=== PATIENT | female | born 1975 | race American Indian/Alaskan Native ===

== ENCOUNTER 2020-04-01 15:12 | Outpatient (REF) | payer MEDICAID, SELFPAY ==
[2020-04-01 17:33] LABS: MANUAL DIFF FLAG NO
[2020-04-01 17:44] LABS: Basophils Percent Auto 0.6 % (0-2); Eosinophils Absolute Auto 0.1 X10*3/uL (0.0-0.4); Eosinophils Percent Auto 1.9 % (0-4); Hematocrit 40.2 % (37-47); Hemoglobin 12.7 g/dl (12.0-16.0); Imm Gran Abs Auto 0.01 X10*3/uL (0.00-0.03); Imm Gran Pct Auto 0.1 % (0.0-0.4); Lymphocytes Absolute Auto 2.7 X10*3/uL (1.2-4.9); Lymphocytes Percent Auto 40.7 % (20-40); Mean Corpuscular HGB Conc 31.6 g/dl (31.0-35.0); Mean Corpuscular Volume 85.4 fL (80-98); Mean Platelet Volume 11.4 fL (9.4-12.3); Monocytes Absolute Auto 0.4 X10*3/uL (0.1-1.2); Monocytes Percent Auto 5.5 % (2-11); Neutrophils Absolute Auto 3.4 X10*3/uL (2.0-8.3); Neutrophils Percent Auto 51.2 % (45-73); Platelet Count 253 X10*3/uL (160-400); Red Blood Count 4.71 X10*6/uL (4.20-5.50); Red Cell Distribution Width 14.4 % (11.0-16.0); White Blood Count 6.7 X10*3/uL (4.8-10.8)
[2020-04-01 17:49] LABS: D Dimer 374 NG/ML
[2020-04-01 18:03] LABS: Anion Gap 11 (12-20); Blood Urea Nitrogen 10 mg/dL (9-16); Calcium 8.9 mg/dL (8.4-10.2); Carbon Dioxide 24 mmol/L (22-29); Chloride 106 mmol/L (96-108); Estimated Glomerular Filt Rate > 60; Glucose Random 121 mg/dL (60-115); Potassium 4.1 mmol/l (3.3-5.1); Sodium 137 mmol/L (135-145)
[2020-04-01 18:56] LABS: Erythrocyte Sedimentation Rate 20 MM/HR (0-20)
[2020-04-04 14:22] LABS: Anti Nuclear Antibody Screen NEGATIVE (NEGATIVE)
[2020-04-04 15:57] LABS: Cyclic Citrullinated Peptide <16 UNITS
[2020-04-06 13:32] LABS: Immunoglobulin G Subclass 1 1659 mg/dL (382-929); Immunoglobulin G Subclass 2 382 mg/dL (241-700); Immunoglobulin G Subclass 3 168 mg/dL (22-178); Immunoglobulin G Subclass 4 36.3 mg/dL (4-86); Immunoglobulin G Total 2393 mg/dL (600-1640)
== END 2020-04-01 15:13 | disposition home or self-care (01) ==
LOC: HO.LAB 15:12
PROVIDERS: PCP Internal Medicine; Referring Provider Internal Medicine; Visit Provider Hospitalist
DX: R06.00 Dyspnea, unspecified (principal); J45.909 Unspecified asthma, uncomplicated
CPT/HCPCS: 36415; 80048; 82784; 82785; 85025; 85379; 85652; 86003; 86038; 86039; 86200; 99202

== ENCOUNTER → 2020-04-02 10:08 | Outpatient (BNVA) | payer MEDICAID, SELFPAY | PROVIDERS: Visit Provider Surgery | DX: Z91.89 Other specified personal risk factors, not elsewhere classified (principal); Z80.49 Family history of malignant neoplasm of other genital organs; Z80.3 Family history of malignant neoplasm of breast; Z80.0 Family history of malignant neoplasm of digestive organs | CPT/HCPCS: 99212 ==

== ENCOUNTER → 2020-05-27 09:58 | Outpatient (BNVA) | payer MEDICAID, SELFPAY | PROVIDERS: Visit Provider Hospitalist | DX: R06.00 Dyspnea, unspecified (principal); G47.33 Obstructive sleep apnea (adult) (pediatric); J45.909 Unspecified asthma, uncomplicated; Z79.899 Other long term (current) drug therapy | CPT/HCPCS: 99212 ==

== ENCOUNTER 2020-06-28 16:38 | Emergency (ER) | payer MEDICAID, SELFPAY ==
--- NOTE | ~2020-06-28 | XR_ITS ---
EXAMINATION: LEFT HIP SERIES LEFT SHOULDER SERIES CLINICAL INFORMATION: Fall COMPARISON: CT scan of the abdomen and pelvis December 2017. TECHNIQUE: Pelvis single view and 2 views of the left hip Left shoulder 3 views FINDINGS: Left hip: Femoral acetabular joint is normal. Surrounding bone and soft tissues normal. Pelvis: Bones joints and soft tissues normal. Left shoulder:Small ossification tuberosity. Bones joints and soft tissues otherwise unremarkable. XR/XR shoulder LT min 2V IMPRESSION: Left hip and pelvis: Normal. Left shoulder: No acute abnormality. Possible calcification overlying the greater tuberosity may reflect calcific tendinitis as is seen in the right shoulder on the prior examination in 2016
--- NOTE | ~2020-06-28 | XR_ITS ---
EXAMINATION: LEFT HIP SERIES LEFT SHOULDER SERIES CLINICAL INFORMATION: Fall COMPARISON: CT scan of the abdomen and pelvis December 2017. TECHNIQUE: Pelvis single view and 2 views of the left hip Left shoulder 3 views FINDINGS: Left hip: Femoral acetabular joint is normal. Surrounding bone and soft tissues normal. Pelvis: Bones joints and soft tissues normal. Left shoulder:Small ossification tuberosity. Bones joints and soft tissues otherwise unremarkable. XR/XR hip LT min 2V IMPRESSION: Left hip and pelvis: Normal. Left shoulder: No acute abnormality. Possible calcification overlying the greater tuberosity may reflect calcific tendinitis as is seen in the right shoulder on the prior examination in 2016
[2020-06-28 17:33] VITALS: BP 126/69; PULSE 69; RESP 18; TEMP 36.8; O2SAT 98; BMI 59.1
== END 2020-06-28 20:05 | disposition left against medical advice (07) ==
PROVIDERS: Emergency Provider Emergency Medicine
DX: S79.912A Unspecified injury of left hip, initial encounter (principal); S49.92XA Unspecified injury of left shoulder and upper arm, initial encounter; W19.XXXA Unspecified fall, initial encounter; Y93.9 Activity, unspecified; Y92.9 Unspecified place or not applicable; Y99.9 Unspecified external cause status
CPT/HCPCS: 73030; 73502; 99282; 99283

== ENCOUNTER 2020-07-31 10:28 | Outpatient (REF) | payer MEDICAID, SELFPAY ==
--- NOTE | ~2020-07-31 | XR_ITS ---
EXAMINATION: XR RIBS, RIGHT CLINICAL INFORMATION: Chest pain COMPARISON: Chest x-ray of February 13, 2020 TECHNIQUE: PA film of the chest and 4 views of the right ribs. FINDINGS: Lungs are clear. No consolidation, pneumothorax, or pleural effusion. The cardiomediastinal silhouette and pulmonary vasculature are normal. Osseous structures are unremarkable. Ribs are intact. No fractures are identified. Multilevel degenerative disc disease with marginal spurring is seen within the thoracic spine. XR/XR ribs RT min 3V w CXR1V IMPRESSION: No acute parenchymal disease within the chest. No suspicious bony abnormality or acute fracture of the right ribs.
== END 2020-07-31 10:29 | disposition home or self-care (01) ==
LOC: HO.XRAY 10:28
PROVIDERS: Visit Provider Hospitalist
DX: G47.33 Obstructive sleep apnea (adult) (pediatric) (principal); R93.89 Abnormal findings on diagnostic imaging of other specified body structures; R06.00 Dyspnea, unspecified; J45.40 Moderate persistent asthma, uncomplicated; K21.9 Gastro-esophageal reflux disease without esophagitis; R07.82 Intercostal pain
CPT/HCPCS: 71101; 99212

== ENCOUNTER 2020-08-06 11:47 | Outpatient (REF) | payer MEDICAID, SELFPAY ==
--- NOTE | ~2020-08-06 | US_ITS ---
EXAMINATION: US ABDOMEN COMPLETE CLINICAL INFORMATION: Abdominal pain. COMPARISON: CT abdomen and pelvis 08/02/2019. Ultrasound abdomen 07/12/2019 and ultrasound renals only 10/13/2018. X-ray abdomen 10/13/2018. TECHNIQUE: Real-time imaging of the abdominal viscera. FINDINGS: PANCREAS: The head and the body of pancreas homogeneous in echotexture. The tail is obscured by overlying gas. ABDOMINAL AORTA: The proximal, mid, and distal segments are normal in caliber. INFERIOR VENA CAVA: Visualized portions are normal. LIVER: There is diffuse hepatic echogenicity without any focal lesion. The liver is normal in size. The liver contour is normal. No focal hepatic lesion. There is no intrahepatic biliary duct dilatation seen. GALLBLADDER: Surgically absent. COMMON BILE DUCT: Normal in caliber measuring 0.5 cm in diameter. RIGHT KIDNEY: Normal. No hydronephrosis. No renal calculi or focal parenchymal lesions. The kidney measures 12.6 cm in maximum dimension. LEFT KIDNEY: Normal. No hydronephrosis. No renal calculi or focal parenchymal lesions. The kidney measures 13.4 cm in maximum dimension. SPLEEN: Normal. The spleen measures 12.2 cm in maximum dimension. FREE FLUID: None. US/US abdomen complete IMPRESSION: Hepatic steatosis. No focal lesion seen. Rest of the abdominal ultrasound is unremarkable.
== END 2020-08-06 11:48 | disposition home or self-care (01) ==
LOC: HO.US 11:47
PROVIDERS: Visit Provider Registered Nurse
DX: R10.9 Unspecified abdominal pain (principal); M54.9 Dorsalgia, unspecified
CPT/HCPCS: 76700

== ENCOUNTER → 2020-08-15 09:44 | Outpatient (BNVA) | payer MEDICAID, SELFPAY | PROVIDERS: PCP Nurse Practitioner Family; Visit Provider Nurse Practitioner ==

== ENCOUNTER → 2020-10-04 09:06 | Outpatient (BNVA) | payer MEDICAID, SELFPAY | PROVIDERS: PCP Nurse Practitioner Family; Visit Provider Nurse Practitioner ==

== ENCOUNTER 2020-10-07 11:42 | Outpatient (REF) | payer MEDICAID, SELFPAY ==
--- NOTE | ~2020-10-07 | XR_ITS ---
EXAMINATION: KNEE THORACIC SPINE AND LUMBAR SPINE X-RAY CLINICAL INFORMATION: Pain COMPARISON: Previous right knee x-ray December 2018, previous lumbar spine x-ray June 2014 TECHNIQUE: 4 views of the right knee, 5 views of the lumbar spine and 3 views of the thoracic spine FINDINGS: Right knee: Bone alignment is normal. No fracture or dislocation is seen. There is mild medial and lateral tibial joint space narrowing and small osteophytes. Joint spaces are otherwise normal. There is an osteophyte at the quadriceps tendon insertion to the patella. There is no joint effusion. Lumbar spine: Bone alignment is normal. No fracture or dislocation is seen. Disc spaces are normal. There is mild lower lumbar spine facet arthritis. No pars defect is seen. Thoracic spine: Bone alignment is normal. No fracture or dislocation is seen. There is mild degenerative spondylosis of the mid thoracic spine. Disc spaces are normal. Paraspinal soft tissues are normal. XR/XR lumbar spine 4V min IMPRESSION: Right knee: Mild degenerative changes at the medial femoral tibial joint. Lumbar spine: Mild lower lumbar spine facet arthritis. Thoracic spine: Mild spondylosis of the midthoracic spine.
--- NOTE | ~2020-10-07 | XR_ITS ---
EXAMINATION: KNEE THORACIC SPINE AND LUMBAR SPINE X-RAY CLINICAL INFORMATION: Pain COMPARISON: Previous right knee x-ray December 2018, previous lumbar spine x-ray June 2014 TECHNIQUE: 4 views of the right knee, 5 views of the lumbar spine and 3 views of the thoracic spine FINDINGS: Right knee: Bone alignment is normal. No fracture or dislocation is seen. There is mild medial and lateral tibial joint space narrowing and small osteophytes. Joint spaces are otherwise normal. There is an osteophyte at the quadriceps tendon insertion to the patella. There is no joint effusion. Lumbar spine: Bone alignment is normal. No fracture or dislocation is seen. Disc spaces are normal. There is mild lower lumbar spine facet arthritis. No pars defect is seen. Thoracic spine: Bone alignment is normal. No fracture or dislocation is seen. There is mild degenerative spondylosis of the mid thoracic spine. Disc spaces are normal. Paraspinal soft tissues are normal. XR/XR knee RT 4V IMPRESSION: Right knee: Mild degenerative changes at the medial femoral tibial joint. Lumbar spine: Mild lower lumbar spine facet arthritis. Thoracic spine: Mild spondylosis of the midthoracic spine.
--- NOTE | ~2020-10-07 | XR_ITS ---
EXAMINATION: XR CHEST CLINICAL INFORMATION: Cough COMPARISON: Previous chest x-ray most recent July 2020 TECHNIQUE: 2 views of the chest were obtained. FINDINGS: The cardiac and mediastinal contours are stable. The lungs are clear. There is no pleural effusion or pneumothorax. There are degenerative changes of the spine. XR/XR chest 2V IMPRESSION: No evidence for acute disease in the chest.
--- NOTE | ~2020-10-07 | XR_ITS ---
EXAMINATION: XR CERVICAL SPINE CLINICAL INFORMATION: Pain. COMPARISON: Thoracic spine 10/07/2020, cervical spine 06/30/2016. TECHNIQUE: 3 views of the cervical spine were obtained. FINDINGS: There is mild reversal cervical lordosis similar to prior exam 2017. There is mild rightward tilting cervical spine on frontal view. The vertebral bodies are normal in height. The odontoid appears intact. There is no vertebral compression, spondylolisthesis, disc narrowing, or destructive process. No prevertebral soft tissue swelling. Bony mineralization appears normal. XR/XR cervical spine 3V IMPRESSION: Mild reversal and rightward tilting. Otherwise unremarkable.
--- NOTE | ~2020-10-07 | XR_ITS ---
EXAMINATION: KNEE THORACIC SPINE AND LUMBAR SPINE X-RAY CLINICAL INFORMATION: Pain COMPARISON: Previous right knee x-ray December 2018, previous lumbar spine x-ray June 2014 TECHNIQUE: 4 views of the right knee, 5 views of the lumbar spine and 3 views of the thoracic spine FINDINGS: Right knee: Bone alignment is normal. No fracture or dislocation is seen. There is mild medial and lateral tibial joint space narrowing and small osteophytes. Joint spaces are otherwise normal. There is an osteophyte at the quadriceps tendon insertion to the patella. There is no joint effusion. Lumbar spine: Bone alignment is normal. No fracture or dislocation is seen. Disc spaces are normal. There is mild lower lumbar spine facet arthritis. No pars defect is seen. Thoracic spine: Bone alignment is normal. No fracture or dislocation is seen. There is mild degenerative spondylosis of the mid thoracic spine. Disc spaces are normal. Paraspinal soft tissues are normal. XR/XR thoracic spine 3V IMPRESSION: Right knee: Mild degenerative changes at the medial femoral tibial joint. Lumbar spine: Mild lower lumbar spine facet arthritis. Thoracic spine: Mild spondylosis of the midthoracic spine.
[2020-10-07 12:57] LABS: Basophils Percent Auto 0.4 % (0-2); Eosinophils Absolute Auto 0.1 X10*3/uL (0.0-0.4); Eosinophils Percent Auto 1.7 % (0-4); Hematocrit 39.1 % (37-47); Hemoglobin 12.4 g/dl (12.0-16.0); Imm Gran Abs Auto 0.01 X10*3/uL (0.00-0.03); Imm Gran Pct Auto 0.1 % (0.0-0.4); Lymphocytes Absolute Auto 2.4 X10*3/uL (1.2-4.9); Lymphocytes Percent Auto 34.9 % (20-40); MANUAL DIFF FLAG NO; Mean Corpuscular HGB Conc 31.7 g/dl (31.0-35.0); Mean Corpuscular Hemoglobin 26.9 pg (27.0-33.0); Mean Corpuscular Volume 84.8 fL (80-98); Mean Platelet Volume 10.8 fL (9.4-12.3); Monocytes Absolute Auto 0.4 X10*3/uL (0.1-1.2); Monocytes Percent Auto 5.5 % (2-11); Neutrophils Percent Auto 57.4 % (45-73); Platelet Count 228 X10*3/uL (160-400); Red Blood Count 4.61 X10*6/uL (4.20-5.50); Red Cell Distribution Width 13.1 % (11.0-16.0)
[2020-10-07 13:23] LABS: Cholesterol 221 mg/dL; Estimated Average Glucose 246 mg/dL; HDL Cholesterol 35 mg/dL; Hemoglobin A1c % 10.2 %; LDL Cholesterol Calculated 135 mg/dl; Triglycerides 256 mg/dL
[2020-10-07 13:26] LABS: Alanine Aminotransferase 100 U/L (0-31); Albumin Level 4.3 g/dL (3.5-5.0); Alkaline Phosphatase 118 U/L (39-117); Anion Gap 14 (12-20); Aspartate Amino Transferase 84 U/L (5-31); Bilirubin Total 0.4 mg/dL (0.0-1.0); Blood Urea Nitrogen 13 mg/dL (9-16); Calcium 9.4 mg/dL (8.4-10.2); Carbon Dioxide 25 mmol/L (22-29); Chloride 104 mmol/L (96-108); Estimated Glomerular Filt Rate > 60; Glucose Random 222 mg/dL (60-115); Potassium 4.1 mmol/L (3.3-5.1); Sodium 139 mmol/L (135-145); Total Protein 8.3 g/dL (6.5-8.0)
[2020-10-07 13:45] LABS: TSH reflex Free T4 1.25 uIU/mL (0.32-4.0); Vitamin D 25-OH Total 24.9 ng/mL (>30)
== END 2020-10-07 11:43 | disposition home or self-care (01) ==
LOC: HO.LAB 11:42
PROVIDERS: Nurse Practitioner; PCP Nurse Practitioner Family; Visit Provider Nurse Practitioner Family
DX: R11.0 Nausea (principal); E11.9 Type 2 diabetes mellitus without complications; J45.20 Mild intermittent asthma, uncomplicated; K21.9 Gastro-esophageal reflux disease without esophagitis; K59.00 Constipation, unspecified; M54.9 Dorsalgia, unspecified; R10.9 Unspecified abdominal pain; R05 Cough; M25.561 Pain in right knee; Z91.81 History of falling; Z71.89 Other specified counseling; Z12.11 Encounter for screening for malignant neoplasm of colon
CPT/HCPCS: 36415; 71046; 72040; 72072; 72110; 73564; 80053; 80061; 82306; 83036; 84443; 85025

== ENCOUNTER → 2020-12-09 08:55 | Outpatient (BNVA) | payer MEDICAID, SELFPAY | PROVIDERS: PCP Nurse Practitioner Family; Visit Provider Nurse Practitioner | DX: K58.2 Mixed irritable bowel syndrome (principal); K21.9 Gastro-esophageal reflux disease without esophagitis; R11.0 Nausea; R10.32 Left lower quadrant pain; K62.5 Hemorrhage of anus and rectum; K22.10 Ulcer of esophagus without bleeding; K64.9 Unspecified hemorrhoids; G47.33 Obstructive sleep apnea (adult) (pediatric); Z80.0 Family history of malignant neoplasm of digestive organs; Z79.899 Other long term (current) drug therapy | CPT/HCPCS: 99212 ==

== ENCOUNTER 2020-12-16 09:12 | Outpatient (REF) | payer MEDICAID, SELFPAY ==
--- NOTE | ~2020-12-16 | CT_ITS ---
EXAMINATION: CT ABDOMEN AND PELVIS WITH CONTRAST CLINICAL INFORMATION: Left lower quadrant pain. COMPARISON: 08/02/2019 TECHNIQUE: Multidetector volumetric images were obtained from the superior aspect of the liver through the pubic symphysis following administration 85 mL of Omnipaque 350 intravenous contrast and 400 mL oral contrast. Sagittal and coronal reformatted images were obtained on the technologist's workstation. Oral contrast: No This CT examination was performed using dose optimization techniques as appropriate, variously including the following: *Automated exposure control *Adjustment of mA and/or kV according to patient size (this includes techniques or standardized protocols for targeted exams where dose is matched to indication/reason for exam; i.e. extremities or head) *Use of iterative reconstruction technique DLP: 1326 mGy-cm FINDINGS: LUNG BASES: The visualized lung bases are unremarkable. The heart size is normal. LIVER, GALLBLADDER, AND BILIARY TREE: The liver is enlarged in size, shape with diffuse hypoattenuation. Liver measures 23 cm in length. No focal hepatic lesion or biliary ductal dilatation is present. Gallbladder has been surgically removed. PANCREAS: Unremarkable. SPLEEN: Unremarkable. ADRENAL GLANDS: The adrenal glands are normal with a small 2-3 mm left adrenal gland calcification. KIDNEYS AND URETERS: The kidneys are normal in size, shape, and attenuation. No hydronephrosis, hydroureter, or calculi seen. No perinephric stranding. BLADDER: Unremarkable. GASTROINTESTINAL TRACT: There is moderate stool and oral contrast seen in the right colon. The rest of the colon is unremarkable. The small bowel loops are normal caliber. Appendix is likely normal caliber. No inflammatory changes seen in the right lower quadrant. ABDOMINAL WALL: No significant hernia is appreciated. LYMPH NODES: There are moderate-sized left external iliac lymph nodes with the largest lymph node measuring 2.4 x 1.6 x 2.8 cm axial image 74/3. Previously it measured 2.5 x 1.3 cm. Similar size abnormal-sized right internal iliac lymph node is noted measuring 2.6 x 1.7 x 3.0 cm. Previously measured 3.3 x 2.8 cm. In addition there are small shotty lymph nodes in the left retroperitoneum. VASCULAR: Unremarkable. PELVIC VISCERA: The uterus is atrophied or surgically absent. No adnexal mass or free fluid seen. OSSEOUS STRUCTURES: Unremarkable. CT/CT abdomen pelvis w con IMPRESSION: Abnormal bilateral internal iliac lymph node of unknown etiology. These lymph nodes are smaller compared to previous study 08/02/2019. Diffuse hepatic steatosis without focal lesion. Previous cholecystectomy changes are noted. No acute intra-abdominal process seen.
[2020-12-16 10:05] LABS: Blood Urea Nitrogen 10 mg/dL (9-16); Estimated Glomerular Filt Rate > 60
[2020-12-16] MEDS: iohexoL 350 MG/ML 100 ML INFUS..BTL IV (11:57)
[2020-12-16] MEDS: Barium Sulfate Oral (Vanilla) 450 ML ORAL.SUSP 900 ML PO (12:00)
== END 2020-12-16 09:13 | disposition home or self-care (01) ==
LOC: HO.CT 09:12
PROVIDERS: Visit Provider Nurse Practitioner
DX: R10.32 Left lower quadrant pain (principal); K62.5 Hemorrhage of anus and rectum
CPT/HCPCS: 36415; 74177; 82565; 84520; Q9967

== ENCOUNTER → 2021-01-14 08:45 | Outpatient (BNVA) | payer MEDICAID, SELFPAY | PROVIDERS: PCP Nurse Practitioner Family; Visit Provider Nurse Practitioner ==

== ENCOUNTER 2021-01-27 16:47 | Emergency (ER) | payer MEDICAID, SELFPAY ==
--- NOTE | ~2021-01-27 | CT_ITS ---
EXAMINATION: CT OF THE HEAD AND CERVICAL SPINE WITHOUT CONTRAST CLINICAL INFORMATION: fall . COMPARISON: 12/14/2019. TECHNIQUE: Contiguous axial imaging was performed from the skull base to vertex. Soft tissue and bony algorithms were evaluated. Coronal reformatted images were obtained on the technologist's workstation. Following this, multiple serial thin slice helical CT scan images through the cervical spine were obtained. Soft tissue and bony algorithms were evaluated. Coronal and sagittal reformatted images were obtained on the technologist workstation. This CT examination was performed using dose optimization techniques as appropriate, variously including the following: *Automated exposure control *Adjustment of mA and/or kV according to patient size (this includes techniques or standardized protocols for targeted exams where dose is matched to indication/reason for exam; i.e. extremities or head) *Use of iterative reconstruction technique DLP: 1755 mGy cm FINDINGS: Head CT: The ventricles are normal in size and symmetry. There is no evidence of acute intracranial hemorrhage or territorial infarction. No abnormal mass-effect or midline shift is seen. Norman to white matter differentiation is well preserved. No extra-axial fluid collections are identified. There is no abnormal attenuation within the brain parenchyma. The osseous structures and soft tissues are normal. The mastoid air cells and visualized portions of the paranasal sinuses are well-aerated. Cervical spine CT: No prevertebral soft tissue swelling is appreciated. The bones are in normal anatomic alignment with no acute fracture or spondylolisthesis. Vertebral body heights and disc heights are preserved. Posterior elements are unremarkable. Visualized airway and lung apices are unremarkable. Visualized thyroid gland unremarkable. CT/CT cervical spine wo con IMPRESSION: Head CT: No acute intracranial pathology. C-spine: No acute bony abnormality in the cervical spine.
--- NOTE | ~2021-01-27 | XR_ITS ---
Examination: XR ribs RT min 3V w CXR1V, XR shoulder RT min 2V Indication: fall Comparison: No pertinent prior studies are currently available for comparison. Technique: Frontal view of the chest with 3 additional views the right ribs and 4 additional views of the right shoulder obtained. Findings: Right ribs: Bones are normal anatomic alignment. I do not appreciate any acute fracture or dislocation. Specifically no displaced rib fracture seen visualized right lung is unremarkable although patient is hypoexpanded. Surgical clips in the right upper quadrant likely from prior cholecystectomy. Right shoulder: Humeral head is well-seated within the glenoid fossa. Mild degenerative osteophytes are seen. Mild hypertrophic degenerative changes in the acromioclavicular joint. XR/XR shoulder RT min 2V Impression: No displaced rib fracture. Mild degenerative changes in the shoulder.
--- NOTE | ~2021-01-27 | XR_ITS ---
Examination: XR ribs RT min 3V w CXR1V, XR shoulder RT min 2V Indication: fall Comparison: No pertinent prior studies are currently available for comparison. Technique: Frontal view of the chest with 3 additional views the right ribs and 4 additional views of the right shoulder obtained. Findings: Right ribs: Bones are normal anatomic alignment. I do not appreciate any acute fracture or dislocation. Specifically no displaced rib fracture seen visualized right lung is unremarkable although patient is hypoexpanded. Surgical clips in the right upper quadrant likely from prior cholecystectomy. Right shoulder: Humeral head is well-seated within the glenoid fossa. Mild degenerative osteophytes are seen. Mild hypertrophic degenerative changes in the acromioclavicular joint. XR/XR ribs RT min 3V w CXR1V Impression: No displaced rib fracture. Mild degenerative changes in the shoulder.
[2021-01-27 17:03] VITALS: BP 158/94; PULSE 88; O2SAT 96
[2021-01-27 17:11] VITALS: BP 126/79; PULSE 84; RESP 16; TEMP 37.1; O2SAT 95; BMI 39.1
--- NOTE | 2021-01-27 17:35 | ED.FALL ---
HPI - Fall General Chief Complaint: Fall Stated Complaint: fall back and neck pain Time Seen by Provider: 01/27/21 17:14 Source: patient and EMS Mode of arrival: EMS History of Present Illness HPI Narrative: 45-year-old female with a past medical history of asthma, GERD, MARLON, IBS, BIBA complaining of headache, neck pain, right/shoulder, right rib, and low back pain s/p mechanical fall/tripped on soccer ball while playing with grandchildren [employer]. Reports tripping on ball and fell forward into fence and then rolled on right side, admits hit head, denies LOC. Denies taking anticoagulation. Reports mild nausea. Denies CP, abdominal pain, vomiting numbness, tingling, urinary incontinence/retention MD complaint: fall Onset (ago): minute(s) Related Data Home Medications Medication Instructions Recorded Confirmed famotidine 40 mg tablet (Pepcid) 40 mg PO BEDTIME 03/21/20 11/21/20 simethicone 180 mg capsule (Gas 180 mg PO .Q.i.d. PRN cap 03/21/20 11/21/20 Relief (simethicone)) metformin 750 mg tablet,extended 750 mg PO BID 10/04/20 11/21/20 release 24 hr Previous Rx's Medication Instructions Recorded budesonide-formoterol HFA 160 2 puff PO BID #10.2 g 04/29/20 mcg-4.5 mcg/actuation aerosol inhaler (Symbicort) albuterol sulfate 90 mcg/actuation 2 inh INHALATION Q6H PRN 30 Days 05/27/20 aerosol inhaler #18 g bisacodyl 5 mg tablet,delayed 10 mg PO BEDTIME 2 Days #4 tab 10/04/20 release (Dulcolax (bisacodyl)) hydrocortisone 2.5 % topical cream 1 appl [place] BID PRN #30 g 10/04/20 with perineal applicator (Proctosol HC) peg 3350-electrolytes 236 240 ml PO Q10M 1 Days #4000 ml 10/04/20 gram-22.74 gram-6.74 gram-5.86 gram solution (Golytely) omeprazole 20 mg capsule,delayed 20 mg PO QAM #30 cap 11/20/20 release dicyclomine 20 mg tablet 20 mg PO QIDACHS 30 Days #120 tab 12/09/20 acetaminophen 500 mg tablet 500 mg PO Q6H PRN #20 tab 01/27/21 (Tylenol Extra Strength) cyclobenzaprine 5 mg tablet 5 mg PO Q8H PRN 5 Days #14 tab 01/27/21 lidocaine 5 % topical patch 1 patch TOPICAL DAILY PRN #30 ea 01/27/21 (Lidoderm) MDD remove after 12 hours naproxen 500 mg tablet 500 mg PO BID PRN 10 Days #20 tab 01/27/21 Allergies Allergy/AdvReac Type Severity Reaction Status Date / Time No Known Allergies Allergy Verified 01/14/21 08:45 [No Known Allergies*] Review of Systems Review of Systems: Constitutional: No Fever, No Chills,No Fatigue, No Malaise ENT/Mouth: No Ear Pain, No Nasal Congestion, No sore throat, No Rhinorrhea Eyes: No Eye Pain, No Swelling, No Discharge Cardiovascular: +Chest Wall Pain, No SOB, No Palpitations Respiratory: No Cough, No Sputum, No Dyspnea Gastrointestinal: No Nausea, No Vomiting, No Diarrhea, No Constipation, No Abdominal pain Genitourinary: No Dysuria, No Urinary Frequency, No Hematuria, No Urinary Incontinence,/retention No Urgency, No Flank Pain Musculoskeletal: + joint pain, No Myalgias, No Joint Swelling Skin: + Skin Lesions, No rash Neuro: No Weakness, No Numbness, No Paresthesias, No Loss of Consciousness, No Dizziness, + Headache Yes all other systems are reviewed and are negative Neurologic: Denies Abnormal speech present and Denies Sensory deficit (Neuro) [facility] Past Medical History Attestation statement: The following information was validated with the patient. Medical History Abnormal chest x-ray Asthma At high risk for breast cancer Chest pain Dyspnea GERD (gastroesophageal reflux disease) Irritable bowel syndrome with both constipation and diarrhea MARLON (obstructive sleep apnea) Surgical History H/O colonoscopy History of cholecystectomy History of esophagogastroduodenoscopy (EGD) Family History Family History Other Asthma History of cancer of uterus History of liver cancer History of ovarian cancer History of pancreatic cancer Social History Social History Alcohol intake: current Alcohol intake frequency: does not drink Patient Tobacco Use Status: Former Tobacco user Tobacco use type: Cigarette Advance Directives: No Advance Directives Information Provided: No Patient : No Physical Exam Vital Signs: Vital Signs: Last Vital Signs Temp 98.8 F 01/27/21 17:11 Pulse 84 01/27/21 17:11 Resp 16 01/27/21 17:11 BP 126/79 01/27/21 17:11 Pulse Ox 95 01/27/21 17:11 Body Mass Index 39.1 Const: Other: tearful General: cooperative, healthy appearing, alert, awake and anxious Orientation/consciousness: patient oriented x3 Limitations: no limitations HENMT: Head: Yes normal to inspection and Yes atraumatic Ears: hearing grossly normal bilaterally General nose exam: Normal external nose present Face and sinus: Yes normal facial exam Eyes: General: appearance normal, both eyes and all related structures EOM: EOMs intact bilaterally Neck: Other: C-collar in place. No midline cervical spinous tenderness/step-off. Bilateral paraspinal MSK tenderness Neck: Yes normal visual inspection and Yes no meningeal signs Chest: Other: Tenderness diffusely over right chest wall/ribs anteriorolaterally. No crepitus Chest palpation & inspection: no crepitus and tenderness Resp: Effort & Inspection: normal respiratory effort, no grunting, not labored, no respiratory distress and no stridor Cardio: Rate: regular rate Heart sounds: S1 normal heart sound present and S2 normal heart sound present GI: Inspection: Yes normal to inspection Palpation (GI): Soft to palpation, nontender, no guarding and not rigid Back/Spine/Pelvis: Other: No midline thoracic/lumbar spinous tenderness or step-off. + bilateral thoracic/lumbar MSK tenderness to palpation Skin: Rashes: no rashes Wounds: no wounds Neuro: Other: No saddle anesthesia General: patient oriented x3, tone normal, moves all extremities, no meningeal signs, no focal motor deficits and CN's II-XI intact bilaterally Cranial nerves: Yes CN's II-XII intact bilaterally and Yes Bilaterally intact EOM present Cognition (Neuro): normal cognition Speech: No Abnormal speech present Gait exam (Neuro): Normal gait present Motor exam (neuro): 5/5 motor strength present throughout and Pronator motor function not present Sensory Exam: No Sensory deficit (Neuro) Coordination: [id number] test normal Romberg Test: Negative Extrem: Other: Right shoulder with mild tenderness, FROM intact. Right elbow with mild tenderness full range of motion intact, superficial abrasions noted. Neurovascularly intact distally. General: Yes normal to inspection Course Course Course Narrative: -[id number]--ED care transfer to [facility] pending imaging results, dispo per results, anticipated DC home MDM - Fall MDM Narrative Medical decision making narrative: 45-year-old female with a past medical history of asthma, GERD, MARLON, IBS, BIBA complaining of headache, neck pain, right/shoulder, right rib, and low back pain s/p mechanical fall/tripped on soccer ball while playing with grandchildren [employer]. On exam VSS, NAD, C-collar in place, tearful/anxious on exam, no midline spinous tenderness throughout, no red flag symptoms. Will rule out fractures vs MSK pain/strain Plan: Head/C-spine CT, x-rays Medical Records Attestation: I reviewed the patient's medical records. Discharge Plan Discharge Clinical Impression: Myalgia, Fall Instructions: Musculoskeletal Pain (ED) Additional Instructions: Your pain is likely musculoskeletal Flexeril is a muscle relaxer, take at night as it makes you drowsy, do not drive, drink alcohol, or operate machinery while taking it Naproxen as an anti-inflammatory / pain medication, take with food Lidoderm patches are numbing patches, apply to painful area In addition take Tylenol at home If symptoms persist or worsen, pain becomes unbearable, you developed urinary retention or incontinence, or weakness return to the ED Es probable que gonzalez dolor sea musculoesquel?navid Flexeril es un relajante muscular, t?sauceda por la noche ya que le produce somnolencia, no conduzca, no vishal alcohol ni utilice maquinaria mientras lo amber. Naproxeno william medicamento antiinflamatorio / analg?sico, edgardo con alimentos. Los parches de Lidoderm son parches que adormecen, se aplican al ?jodie dolorida Adem?s, tome Tylenol en casa. Si los s?ntomas persisten o empeoran, el dolor se vuelve insoportable, desarroll? retenci?n urinaria o incontinencia, o debilidad regrese al servicio de urgencias Prescriptions: New acetaminophen [Tylenol Extra Strength] 500 mg tablet 500 mg PO Q6H PRN (Reason: pain or fever) Qty: 20 RF: 0 lidocaine [Lidoderm] 5 % adhesive patch,medicated 1 patch topical DAILY MDD remove after 12 hours PRN (Reason: pain) Qty: 30 RF: 0 naproxen 500 mg tablet 500 mg PO BID PRN (Reason: pain) 10 Days Qty: 20 RF: 0 cyclobenzaprine 5 mg tablet 5 mg PO Q8H PRN (Reason: pain (scale score 7-10)) 5 Days Qty: 14 RF: 0 No Action budesonide-formoterol [Symbicort] 160-4.5 mcg/actuation HFA aerosol inhaler 2 puff PO BID Qty: 10.2 RF: 0 omeprazole 20 mg capsule,delayed release(DR/EC) 20 mg PO QAM Qty: 30 RF: 0 simethicone [Gas Relief (simethicone)] 180 mg capsule 180 mg PO .Q.i.d. PRN (Reason: Gastrointestinal Spasms Or Cramping) RF: 0 famotidine [Pepcid] 40 mg tablet 40 mg PO BEDTIME RF: 0 albuterol sulfate 90 mcg/actuation HFA aerosol inhaler 2 inh inhalation Q6H PRN (Reason: shortness of breath or wheezing) 30 Days Qty: 18 RF: 12 bisacodyl [Dulcolax (bisacodyl)] 5 mg tablet,delayed release (DR/EC) 10 mg PO BEDTIME 2 Days Qty: 4 RF: 0 peg 3350-electrolytes [Golytely] 236-22.74-6.74 -5.86 gram recon soln 240 ml PO Q10M 1 Days Qty: 4000 RF: 0 hydrocortisone [Proctosol HC] 2.5 % cream with perineal applicator 1 appl [place] BID PRN (Reason: hemorrhoids) Qty: 30 RF: 0 metformin 750 mg tablet extended release 24 hr 750 mg PO BID RF: 0 dicyclomine 20 mg tablet 20 mg PO QIDACHS 30 Days Qty: 120 RF: 6 Referrals: [facility] [Primary Care Provider] - 2 days Print Language: Kyrgyz
[2021-01-27] MEDS: oxyCODONE HCl Immed Release 5 MG TABLET PO (17:55)
[2021-01-27] MEDS: LORazepam 1 MG TABLET PO (17:55)
[2021-01-27] MEDS: Acetaminophen 325 MG TABLET 650 MG PO (17:55)
[2021-01-27 20:12] VITALS: BP 119/74; PULSE 70; RESP 16; TEMP 36.7; O2SAT 99
== END 2021-01-27 22:45 | disposition home or self-care (01) ==
PROVIDERS: Emergency Provider Internal Medicine
DX: Z04.3 Encounter for examination and observation following other accident (principal); M79.10 Myalgia, unspecified site
CPT/HCPCS: 70450; 71101; 72125; 73030; 99283; 99284

== ENCOUNTER 2021-02-11 08:12 | Outpatient (REF) | payer MEDICAID, SELFPAY ==
--- NOTE | ~2021-02-11 | MM_ITS ---
EXAMINATION: MM SCREENING DIGITAL BREAST TOMOSYNTHESIS, BILATERAL CLINICAL INFORMATION: Screening. Asymptomatic. The lifetime risk of breast cancer based on the Tyrer-Cuzick Model is 28.5%. Additional annual screening with breast MRI may be of benefit in women with a Score of 20% or greater. COMPARISON: Mammography: November 30, 2017 and studies dating back to September 28, 2014 TECHNIQUE: Digital breast tomosynthesis is performed in both the craniocaudal and mediolateral oblique views along with computer-aided detection (CAD). Synthesized 2D images are generated from the tomosynthesis. Additional 90 degree left mediolateral projection and exaggerated craniocaudal projection performed. FINDINGS: The breasts are almost entirely fatty (ACR BI-RADS breast composition Category a). There are no significant masses, abnormal calcifications, or other abnormalities. Stable calcifications are seen bilaterally. MM/MM tomosynthesis screening BI IMPRESSION: There are no significant changes from prior study. ASSESSMENT: BI-RADS 1: Negative RECOMMENDATION: Routine annual mammography screening. This patient's information was entered into a reminder system with a target due date for their next mammogram.
== END 2021-02-11 08:13 | disposition home or self-care (01) ==
LOC: HO.MAMMO 08:12
PROVIDERS: Visit Provider Surgery
DX: Z12.31 Encounter for screening mammogram for malignant neoplasm of breast (principal)
CPT/HCPCS: 77063; 77067

== ENCOUNTER 2021-03-04 09:45 | Day surgery (SDC) | payer MEDICAID, SELFPAY ==
--- NOTE | 2021-02-28 10:09 | P.CONAN_ITS ---
Documented by User: Selin uDgan NP 02/28/21 10:10 HPI - Anesthesia Eval Consult details Narrative: 45yo F for Colonoscopy PMFSH Active Problems Active Problems: All Active Problems (Updated 01/28/21 @ 00:01 by Taye Han) Lymph nodes enlarged (Acute) Elevated LFTs (Acute) Family history of colon cancer (Acute) Abdominal cramping (Acute) Hemorrhoids (Acute) Erosive esophagitis (Acute) Irritable bowel syndrome with both constipation and diarrhea (Acute) GERD (gastroesophageal reflux disease) (Acute) Nausea (Acute) Hemorrhoids (Acute) Colon cancer screening (Acute) LLQ abdominal pain (Acute) Rectal bleeding (Acute) Chest pain (Acute) At high risk for breast cancer (Acute) MARLON (obstructive sleep apnea) (Acute) Abnormal chest x-ray (Acute) Dyspnea (Acute) Asthma (Acute) Past Medical History Medical History Abnormal chest x-ray Asthma At high risk for breast cancer Chest pain Dyspnea GERD (gastroesophageal reflux disease) Irritable bowel syndrome with both constipation and diarrhea MARLON (obstructive sleep apnea) Family History Family History Other Asthma History of cancer of uterus History of liver cancer History of ovarian cancer History of pancreatic cancer Surgical History Surgical History H/O colonoscopy History of cholecystectomy History of esophagogastroduodenoscopy (EGD) Social History Social History Alcohol intake: current Alcohol intake frequency: does not drink Patient Tobacco Use Status: Former Tobacco user Quit Date: 7 years ago Tobacco use type: Cigarette Use of substances other than those prescribed or required for medical reasons: No Are you DNR?: No Advance Directives: No Advance Directives Information Provided: Yes Patient : No (UCG pending) Meds Allergies Allergy/AdvReac Type Severity Reaction Status Date / Time No Known Allergies Allergy Verified 02/25/21 10:03 [No Known Allergies*] Home Medications Medication Instructions Recorded Confirmed Last Taken Type famotidine 40 mg tablet (Pepcid) 40 mg PO BEDTIME 03/21/20 02/25/21 Unknown History simethicone 180 mg capsule (Gas 180 mg PO .Q.i.d. PRN cap 03/21/20 02/25/21 Unknown History Relief (simethicone)) metformin 750 mg tablet,extended 750 mg PO BID 10/04/20 02/25/21 Unknown History release 24 hr abacavir 600 mg-dolutegravir 50 1 tab PO DAILY 02/25/21 02/25/21 Unknown History mg-lamivudine 300 mg tablet (Triumeq) escitalopram oxalate 10 mg tablet 1 tab PO BID 02/25/21 02/25/21 Unknown History (Lexapro) fluticasone propionate 50 1 spray INTRANASAL DAILY 02/25/21 02/25/21 Unknown History mcg/actuation nasal spray,suspension gabapentin 100 mg capsule 1 cap PO BID 02/25/21 02/25/21 Unknown History loratadine 10 mg tablet 1 tab PO DAILY 02/25/21 02/25/21 Unknown History multivitamin with folic acid 400 1 tab PO DAILY 02/25/21 02/25/21 Unknown History mcg tablet (Daily-María (with folic acid)) Exam Exam Date and Time: February 28, 2021 1009 Pertinent Lab Results Pertinent Lab Results: Laboratory Tests 10/07/20 10/07/20 12/16/20 12:18 12:18 09:41 WBC 7.0 Hgb 12.4 Hct 39.1 Plt Count 228 Sodium 139 Potassium 4.1 Chloride 104 Carbon Dioxide 25 BUN 10 Creatinine 0.75 Assessment and Plan Assessment Anesthesia Assessment: Chart Reviewed Documented by User: Loni Bennett MD 03/04/21 10:36 [facility] Past Medical History Medical History Abnormal chest x-ray Asthma At high risk for breast cancer Chest pain Dyspnea GERD (gastroesophageal reflux disease) Irritable bowel syndrome with both constipation and diarrhea MARLON (obstructive sleep apnea) Functional capacity: independent ambulation Patient : No Family History Family History Other Asthma History of cancer of uterus History of liver cancer History of ovarian cancer History of pancreatic cancer Family history of problems with anesthesia: No Surgical History Surgical History H/O colonoscopy History of cholecystectomy History of esophagogastroduodenoscopy (EGD) Social History Social History Alcohol intake: current Alcohol intake frequency: does not drink Patient Tobacco Use Status: Former Tobacco user Quit Date: 7 years ago Tobacco use type: Cigarette Use of substances other than those prescribed or required for medical reasons: No Are you DNR?: No Advance Directives: No Advance Directives Information Provided: Yes Patient : No (UCG pending) Meds Allergies Allergy/AdvReac Type Severity Reaction Status Date / Time No Known Allergies Allergy Verified 02/25/21 10:03 [No Known Allergies*] Home Medications Medication Instructions Recorded Confirmed Last Taken Type famotidine 40 mg tablet (Pepcid) 40 mg PO BEDTIME 03/21/20 02/25/21 Unknown History simethicone 180 mg capsule (Gas 180 mg PO .Q.i.d. PRN cap 03/21/20 02/25/21 Unknown History Relief (simethicone)) metformin 750 mg tablet,extended 750 mg PO BID 10/04/20 02/25/21 Unknown History release 24 hr abacavir 600 mg-dolutegravir 50 1 tab PO DAILY 02/25/21 02/25/21 Unknown History mg-lamivudine 300 mg tablet (Triumeq) escitalopram oxalate 10 mg tablet 1 tab PO BID 02/25/21 02/25/21 Unknown History (Lexapro) fluticasone propionate 50 1 spray INTRANASAL DAILY 02/25/21 02/25/21 Unknown History mcg/actuation nasal spray,suspension gabapentin 100 mg capsule 1 cap PO BID 02/25/21 02/25/21 Unknown History loratadine 10 mg tablet 1 tab PO DAILY 02/25/21 02/25/21 Unknown History multivitamin with folic acid 400 1 tab PO DAILY 02/25/21 02/25/21 Unknown History mcg tablet (Daily-María (with folic acid)) Exam Airway TM Dist: >3cm Neck ROM: Full Heart: RRR Lungs: CTA Assessment and Plan Final Anesthetic Review Family History of Problems with Anesthesia: No
[2021-03-04 10:03] LABS: Glucose, Whole Blood 170 mg/dL (60-115)
[2021-03-04 10:06] VITALS: BMI 38.2
[2021-03-04 10:13] LABS: UPreg QC Valid YES; Urine Pregnancy NEGATIVE (NEGATIVE)
[2021-03-04 10:21] VITALS: BP 125/82; PULSE 68; RESP 18; TEMP 35.8; O2SAT 97
--- NOTE | 2021-03-04 10:43 | PC.NURSE ---
IV inserted by Ary Sadler RN
[2021-03-04] MEDS: Lactated Ringers 1,000 ML 100 ML IVCONT (10:45)
--- NOTE | 2021-03-04 10:56 | MHC.SHP ---
Pre-Procedural Eval Section A Date of Service: 03/04/21 The patient is an INPATIENT: No The History & Physical has been completed within 30 days and I have reviewed it.: No Section B Chief Complaint: screening Details of Present Illness: Colon cancer screening, abdominal pain, IBS Relevant Family History (Specify if Yes): Yes Relevant Social History: Tobacco Use (former smoker) Present Medications: see Short Stay Collaborative assessment Medical History: Significant History (Abnormal chest x-ray Asthma At high risk for breast cancer Chest pain Dyspnea GERD (gastroesophageal reflux disease) Irritable bowel syndrome with both constipation and diarrhea MARLON (obstructive sleep apnea)) History of Previous Operations: Relevant previous surgery/procedure and date(s) (H/O colonoscopy History of cholecystectomy History of esophagogastroduodenoscopy (EGD)) Allergies: Allergies Allergy/AdvReac Type Severity Reaction Status Date / Time No Known Allergies Allergy Verified 02/25/21 10:03 [No Known Allergies*] Review of Systems Sugical H&P ROS: Negative: Constitution, Cardiovascular and Respiratory and Yes, Specify: Gastrointestinal (abdominal pain) Exam Surgical H&P Exam: Normal: Heart, Normal: Lungs, Normal: Extremities and Normal: Abdomen Plan Diagnosis/Plan: Unchanged I have reviewed the history and physical and performed a pertinent physical examination on my patient. No changes have occurred unless specified.
--- NOTE | 2021-03-04 11:11 | P.BOP_ITS ---
Brief Operative Note Date of Service: 03/04/21 Pre-op diagnosis: Colon cancer screening Post-op diagnosis: other (Diverticulosis, hemorrhoids) Procedure: COLONOSCOPY TILL CECUM Consent: Indications for the procedure and potential complications of bleeding, perforation, reaction to medications and missed diagnosis were discussed with the patient and informed consent was obtained. Instrument: Olympus PCF H 190 L variable stiffness pediatric colonoscope Monitoring: Vital signs and clinical assessment, intermittent blood pressure monitoring, continuous EKG monitoring, Pulse oximetry and Carbon Dioxide monitoring were done throughout the procedure. Colon withdrawl time was 15 minutes. Procedure: The patient was placed in the left lateral decubitis position and pre-procedure medications were administered. After a digital rectal examination of the ano-rectum, the video colonoscope was inserted into the rectum and advanced through the colon to the cecum. The colonoscope was slowly withdrawn in a retrograde panoramic fashion and the colon mucosa was carefully examined including a retroflexed view of the rectum. Findings and interventions are described below. Procedure Difficulty: Without difficulty Findings: Terminal Ileum: Not evaluated Cecum: Normal Ascending Colon: Normal Transverse Colon: Normal Descending Colon: Normal Sigmoid Colon: Moderate diverticulosis Rectum: Normal Ano-rectum: Small internal hemorrhoids Colon preparation: Excellent Impression and Post Procedure Diagnosis: Colonoscopy Findings: No polyps were detected Moderate diverticulosis seen in the sigmoid colon Small hemorrhoids on retroflexed exam. Plan: Patient has an appointment on 03/20/21 in the GI Clinic with Alyssa Hurtado NP. Repeat Colonoscopy in 5 years due to positive FH of colon cancer (Dad in his 60's, two brothers at age 39 & 43 yrs). Above findings were reviewed with the patient and diverticulosis handout was given in the discharge area Surgeon: Amada Hoyos MD Anesthesia: MAC (Dr Casas) Was an Medical Field Representative used for this Procedure?: Yes Medical Field Representative: Jeanette Alvarado Estimated blood loss (mL): 0 Pathology: none sent Condition: stable Disposition: PACU
--- NOTE | 2021-03-04 11:16 | HO.ANESPROP2 ---
[facility] Active Problems Active Problems: All Active Problems (Updated 01/28/21 @ 00:01 by Taye Han) Lymph nodes enlarged (Acute) Elevated LFTs (Acute) Family history of colon cancer (Acute) Abdominal cramping (Acute) Hemorrhoids (Acute) Erosive esophagitis (Acute) Irritable bowel syndrome with both constipation and diarrhea (Acute) GERD (gastroesophageal reflux disease) (Acute) Nausea (Acute) Hemorrhoids (Acute) Colon cancer screening (Acute) LLQ abdominal pain (Acute) Rectal bleeding (Acute) Chest pain (Acute) At high risk for breast cancer (Acute) MARLON (obstructive sleep apnea) (Acute) Abnormal chest x-ray (Acute) Dyspnea (Acute) Asthma (Acute) Past Medical History Medical History Abnormal chest x-ray Asthma At high risk for breast cancer Chest pain Dyspnea GERD (gastroesophageal reflux disease) Irritable bowel syndrome with both constipation and diarrhea MARLON (obstructive sleep apnea) Functional capacity: independent ambulation Patient : No Family History Family History Other Asthma History of cancer of uterus History of liver cancer History of ovarian cancer History of pancreatic cancer Family history of problems with anesthesia: No Surgical History Surgical History H/O colonoscopy History of cholecystectomy History of esophagogastroduodenoscopy (EGD) Social History Social History Alcohol intake: current Alcohol intake frequency: does not drink Patient Tobacco Use Status: Former Tobacco user Quit Date: 7 years ago Tobacco use type: Cigarette Use of substances other than those prescribed or required for medical reasons: No Are you DNR?: No Advance Directives: No Advance Directives Information Provided: Yes Patient : No Meds Allergies Allergy/AdvReac Type Severity Reaction Status Date / Time No Known Allergies Allergy Verified 02/25/21 10:03 [No Known Allergies*] Active Medications: Current Medications Albuterol Sulfate (Albuterol Sulfate (0.083%) 2.5 Mg/3 Ml Vial.Neb) 2.5 mg INHALE ONCE PRN PRN Reason: Shortness of Breath/Wheezing Lactated Ringer's (Lr) 1,000 mls @ 100 mls/hr IVCONT .Q10H RIGO Last Admin: 03/04/21 10:45 Dose: 100 mls/hr Documented by: Home Medications Medication Instructions Recorded Confirmed Last Taken Type famotidine 40 mg tablet (Pepcid) 40 mg PO BEDTIME 03/21/20 02/25/21 Unknown History simethicone 180 mg capsule (Gas 180 mg PO .Q.i.d. PRN cap 03/21/20 02/25/21 Unknown History Relief (simethicone)) metformin 750 mg tablet,extended 750 mg PO BID 10/04/20 02/25/21 Unknown History release 24 hr abacavir 600 mg-dolutegravir 50 1 tab PO DAILY 02/25/21 02/25/21 Unknown History mg-lamivudine 300 mg tablet (Triumeq) escitalopram oxalate 10 mg tablet 1 tab PO BID 02/25/21 02/25/21 Unknown History (Lexapro) fluticasone propionate 50 1 spray INTRANASAL DAILY 02/25/21 02/25/21 Unknown History mcg/actuation nasal spray,suspension gabapentin 100 mg capsule 1 cap PO BID 02/25/21 02/25/21 Unknown History loratadine 10 mg tablet 1 tab PO DAILY 02/25/21 02/25/21 Unknown History multivitamin with folic acid 400 1 tab PO DAILY 02/25/21 02/25/21 Unknown History mcg tablet (Daily-María (with folic acid)) Exam Exam Date and Time: March 04, 2021 1116 Height,Weight and Vital Signs: Height 5 ft 5 in Weight 104.326 kg Last Vital Signs Temp 96.5 F L 03/04/21 10:21 Pulse 68 03/04/21 10:21 Resp 18 03/04/21 10:21 BP 125/82 03/04/21 10:21 Pulse Ox 97 03/04/21 10:21 Pertinent Lab Results Pertinent Lab Results: Laboratory Tests 03/04/21 03/04/21 09:53 09:55 POC Glucose 170 H Urine Test NEGATIVE Airway Mallampati Class: III TM Dist: >3cm Neck ROM: Full Heart: RRR Lungs: CTA Assessment and Plan Final Anesthetic Review Family History of Problems with Anesthesia: No
--- NOTE | 2021-03-04 11:42 | W.PM.OPN ---
Operative Note Operative Note Date of Service: 03/04/21 Narrative: Pre-op diagnosis: Colon cancer screening Post-op diagnosis: other (Diverticulosis, hemorrhoids) Procedure:? COLONOSCOPY TILL CECUM Consent: Indications for the procedure and potential complications of bleeding, perforation, reaction to medications and missed diagnosis were discussed with the patient and informed consent was obtained. Instrument: Olympus PCF H 190 L variable stiffness pediatric colonoscope Monitoring: Vital signs and clinical assessment, intermittent blood pressure monitoring, continuous EKG monitoring, Pulse oximetry and Carbon Dioxide monitoring were done throughout the procedure. Colon withdrawl time was 15 minutes. Procedure: The patient was placed in the left lateral decubitis position and pre-procedure medications were administered. After a digital rectal examination of the ano-rectum, the video colonoscope was inserted into the rectum and advanced through the colon to the cecum. The colonoscope was slowly withdrawn in a retrograde panoramic fashion and the colon mucosa was carefully examined including a retroflexed view of the rectum. Findings and interventions are described below. Procedure Difficulty: Without difficulty Findings: Terminal Ileum: Not evaluated Cecum:? Normal Ascending Colon:? Normal Transverse Colon:? Normal Descending Colon:? Normal Sigmoid Colon:? Moderate diverticulosis Rectum:? Normal Ano-rectum:? Small internal hemorrhoids Colon preparation: Excellent ? Impression and Post Procedure Diagnosis: Colonoscopy Findings: No polyps were detected Moderate diverticulosis seen in the sigmoid colon Small hemorrhoids on retroflexed exam. Plan: Patient has an appointment on 03/20/21 in the GI Clinic with? Alyssa Hurtado NP. Repeat Colonoscopy in 5 years due to positive FH of colon cancer (Dad in his 60's, two brothers at age 39 & 43 yrs). Above findings were reviewed with the patient and diverticulosis handout was given in the discharge area Surgeon: Amada Hoyos MD Anesthesia: MAC (Dr Casas) Was an Gear Cutting Machine Set Up Operator used for this Procedure?: Yes Gear Cutting Machine Set Up Operator: Jeanette Alvarado Estimated blood loss (mL): 0 Pathology: none sent Condition: stable Disposition: PACU
[2021-03-04 11:45] VITALS: BP 89/41; PULSE 71; RESP 16; TEMP 36.4; O2SAT 96
[2021-03-04 12:00] VITALS: BP 92/47; PULSE 60; RESP 16
[2021-03-04 12:20] VITALS: BP 107/56; PULSE 58; RESP 16; TEMP 36.1; O2SAT 97
--- NOTE | 2021-03-05 09:23 | HO.POSTANES ---
Post Anesthesia Evaluation Post Anesthesia Evaluation Anesthesia: Monitored Mental Status: Awake Pain Control: Satisfactory Nausea/Vomiting: None Hydration: Adequate Anesthesia-Related Issues: No Anes. Related Issues
== END 2021-03-04 13:07 ==
LOC: HO.SSS 09:45
PROVIDERS: Nurse Practitioner; Visit Provider Internal Medicine Gastroenterology
PROC: 0DJD8ZZ Inspection of Lower Intestinal Tract, Via Natural or Artificial Opening Endoscopic (ICD-10-PCS; CPT 45378; principal; 2021-03-04 10:00)
DX: Z12.11 Encounter for screening for malignant neoplasm of colon (principal); Z80.0 Family history of malignant neoplasm of digestive organs; K57.30 Diverticulosis of large intestine without perforation or abscess without bleeding; K64.8 Other hemorrhoids; K58.2 Mixed irritable bowel syndrome; K21.9 Gastro-esophageal reflux disease without esophagitis; K76.0 Fatty (change of) liver, not elsewhere classified; G47.33 Obstructive sleep apnea (adult) (pediatric); J45.909 Unspecified asthma, uncomplicated; Z79.51 Long term (current) use of inhaled steroids; Z79.899 Other long term (current) drug therapy; Z87.891 Personal history of nicotine dependence; Z90.49 Acquired absence of other specified parts of digestive tract
CPT/HCPCS: 45378; 81025; 82947

== ENCOUNTER → 2021-04-24 13:06 | Outpatient (REF) | payer MEDICAID, SELFPAY | LOC: HO.SL 13:06 | PROVIDERS: PCP General Practice; Visit Provider General Practice | DX: G47.33 Obstructive sleep apnea (adult) (pediatric) (principal); J44.9 Chronic obstructive pulmonary disease, unspecified | CPT/HCPCS: 95806 ==

== ENCOUNTER 2021-05-05 15:38 | Outpatient (REF) | payer MEDICAID, SELFPAY ==
[2021-05-05 17:42] LABS: Appearance Urine HAZY; Color Urine YELLOW; Glucose Urine UA NEG (NEG); Leukocyte Esterase Urine NEG (NEG); Nitrite Urine NEG (NEG); PH 5.5 (5.0-8.0); Specific Gravity - Urine >= 1.030 (1.005-1.025); Urine Blood NEG (NEG); Urine Ketones NEG (NEG); Urine Protein TRACE MG/DL (NEG-TRACE)
[2021-05-05 17:45] LABS: Alanine Aminotransferase 74 U/L (0-31); Albumin Level 4.5 g/dL (3.5-5.0); Alkaline Phosphatase 95 U/L (39-117); Aspartate Amino Transferase 53 U/L (5-31); Bilirubin Direct 0.2 mg/dL (0.0-0.5); Bilirubin Total 0.4 mg/dL (0.0-1.0); Total Protein 9.3 g/dL (6.5-8.0)
[2021-05-05 18:18] LABS: Ferritin 157 ng/mL (10-250)
[2021-05-06 08:10] LABS: HBS Num1 0.09 mIU/mL (0-7.99); ~HepC Num1 0.15 S/CO (0.00-0.79); ~Hepatitis B Surface Antibody NONREACTIVE (Nonreactive); ~Hepatitis C Antibody Nonreactive (Nonreactive)
[2021-05-06 08:37] LABS: HBc Num1 0.15 S/CO (0.00-0.79); HBsAGNum1 0.17 S/CO (0.00-0.99); Hepatitis B Core Antibody Nonreactive (Nonreactive); Hepatitis B Surface Antigen Negative (Negative)
[2021-05-07 08:31] LABS: ~Hepatitis A Antibody IgM Nonreactive (Nonreactive)
[2021-05-07 11:57] LABS: Alpha Fetoprotein 1.8 ng/mL
[2021-05-07 13:12] LABS: Anti Nuclear Antibody Screen NEGATIVE (NEGATIVE)
[2021-05-08 13:16] LABS: Smooth Muscle Antibody <20 U (<20)
[2021-05-08 13:26] LABS: Mitochondrial Antibodies NEGATIVE (NEGATIVE)
== END 2021-05-05 15:39 | disposition home or self-care (01) ==
LOC: HO.LAB 15:38
PROVIDERS: PCP General Practice; Referring Provider General Practice; Visit Provider Nurse Practitioner
DX: K58.2 Mixed irritable bowel syndrome (principal); R79.89 Other specified abnormal findings of blood chemistry; K21.9 Gastro-esophageal reflux disease without esophagitis; K22.10 Ulcer of esophagus without bleeding; R14.0 Abdominal distension (gaseous); Z80.0 Family history of malignant neoplasm of digestive organs
CPT/HCPCS: 36415; 80076; 81003; 82105; 82728; 86038; 86039; 86255; 86256; 86704; 86706; 86709; 86803; 87340; 99212

== ENCOUNTER 2021-05-20 12:27 | Outpatient (REF) | payer MEDICAID, SELFPAY ==
--- NOTE | ~2021-05-20 | XR_ITS ---
EXAMINATION: XR CHEST CLINICAL INFORMATION: Acute lower respiratory infection COMPARISON: None TECHNIQUE: 3 views of the chest were obtained. FINDINGS: No focal consolidation. No pneumothorax. Trachea is midline. Cardiomediastinal silhouette is not enlarged. No large pleural effusion. Degenerative changes of the thoracolumbar spine. Soft tissues are unremarkable. XR/XR chest 2V IMPRESSION: No acute cardiopulmonary process.
== END 2021-05-20 12:28 | disposition home or self-care (01) ==
LOC: HO.XRAY 12:27
PROVIDERS: PCP General Practice; Visit Provider Emergency Medicine
DX: J22 Unspecified acute lower respiratory infection (principal)
CPT/HCPCS: 71046

== ENCOUNTER → 2021-06-03 10:03 | Outpatient (BNVA) | payer MEDICAID, SELFPAY | PROVIDERS: PCP General Practice; Visit Provider Hospitalist | DX: G47.33 Obstructive sleep apnea (adult) (pediatric) (principal); R93.89 Abnormal findings on diagnostic imaging of other specified body structures; J45.40 Moderate persistent asthma, uncomplicated; R06.00 Dyspnea, unspecified; R07.82 Intercostal pain; K21.9 Gastro-esophageal reflux disease without esophagitis | CPT/HCPCS: 99212 ==

== ENCOUNTER 2021-06-10 07:24 | Outpatient (REF) | payer MEDICAID, SELFPAY ==
--- NOTE | ~2021-06-10 | CT_ITS ---
EXAMINATION: CT HEAD WITHOUT CONTRAST CLINICAL INFORMATION: Headaches. COMPARISON: None TECHNIQUE: Contiguous axial imaging was performed from the skull base to vertex without intravenous administration of contrast. This CT examination was performed using dose optimization techniques as appropriate, variously including the following: *Automated exposure control *Adjustment of mA and/or kV according to patient size (this includes techniques or standardized protocols for targeted exams where dose is matched to indication/reason for exam; i.e. extremities or head) *Use of iterative reconstruction technique DLP: 2070 mGy-cm FINDINGS: There is no evidence of acute intracranial hemorrhage or territorial infarction. No abnormal mass effect or midline shift is seen. Norman to white matter differentiation is well preserved. No extra-axial fluid collections are identified. The ventricles are normal in size. There is no abnormal attenuation within the brain parenchyma. The osseous structures and soft tissues are normal. There is a small polyp or retention cyst right maxillary sinus. There is minimal mucoperiosteal thickening right sphenoid sinus. Rest of the paranasal sinuses and mastoid air cells are well-aerated. CT/CT head/brain wo con IMPRESSION: No acute intracranial process seen. Mild mucoperiosteal thickening right sphenoid and small polyp or retention cyst right maxillary sinus.
--- NOTE | ~2021-06-10 | CT_ITS ---
EXAMINATION: CT ABDOMEN AND PELVIS WITH CONTRAST CLINICAL INFORMATION: Abdominal pain COMPARISON: 12/16/2020 TECHNIQUE: Multidetector volumetric images were obtained from the superior aspect of the liver through the pubic symphysis following administration 85 mL of Omnipaque 350 intravenous contrast. Sagittal and coronal reformatted images were obtained on the technologist's workstation. Oral contrast: No This CT examination was performed using dose optimization techniques as appropriate, variously including the following: *Automated exposure control *Adjustment of mA and/or kV according to patient size (this includes techniques or standardized protocols for targeted exams where dose is matched to indication/reason for exam; i.e. extremities or head) *Use of iterative reconstruction technique DLP: 2070 mGy-cm FINDINGS: LUNG BASES: The visualized lung bases are unremarkable. LIVER, GALLBLADDER, AND BILIARY TREE: Liver normal in size, contour and morphology. Diffuse hepatic steatosis. No intra or extrahepatic biliary dilatation. Cholecystectomy. PANCREAS: Unremarkable. SPLEEN: Unremarkable. ADRENAL GLANDS: Unremarkable. KIDNEYS AND URETERS: The kidneys are normal in size, shape, and attenuation. No hydronephrosis, hydroureter, or calculi seen. No perinephric stranding. BLADDER: Unremarkable. GASTROINTESTINAL TRACT: The small and large bowel are unremarkable. The appendix is unremarkable. ABDOMINAL WALL: No significant hernia is appreciated. LYMPH NODES: No lymphadenopathy. The enlarged bilateral iliac lymph nodes described previously represent the patient's ovaries. VASCULAR: Unremarkable. PELVIC VISCERA: Hysterectomy. Ovaries unremarkable. OSSEOUS STRUCTURES: No acute or suspicious osseous abnormalities. CT/CT abdomen pelvis w con IMPRESSION: * No potential etiology for the patient's abdominal pain identified. * Diffuse hepatic steatosis. * Cholecystectomy.
[2021-06-10] MEDS: Barium Sulfate Oral (Vanilla) 450 ML ORAL.SUSP PO (10:05)
[2021-06-10] MEDS: Barium Sulfate Oral (Berry) 450 ML ORAL.SUSP PO (10:06)
[2021-06-10] MEDS: iohexoL 350 MG/ML 100 ML INFUS..BTL IV (10:07)
== END 2021-06-10 07:25 | disposition home or self-care (01) ==
LOC: HO.CT 07:24
PROVIDERS: PCP Nurse Practitioner Primary Care; Visit Provider Nurse Practitioner Primary Care
DX: R10.9 Unspecified abdominal pain (principal); R51.9 Headache, unspecified
CPT/HCPCS: 70450; 74177; Q9967

== ENCOUNTER 2021-06-13 17:24 | Emergency (ER) | payer MEDICAID, SELFPAY ==
--- NOTE | ~2021-06-13 | XR_ITS ---
EXAMINATION: XR CHEST CLINICAL INFORMATION: Weakness COMPARISON: Chest x-ray 05/12/2021 TECHNIQUE: Frontal portable view of the chest was obtained. 5:52 PM FINDINGS: No significant abnormality is noted involving the heart, lungs, mediastinum, bony thorax or soft tissues. XR/XR chest 1V IMPRESSION: Unremarkable examination.
[2021-06-13 17:33] VITALS: BP 134/69; PULSE 92; RESP 18; TEMP 36.7; O2SAT 96; BMI 53.8
== END 2021-06-13 20:37 | disposition left against medical advice (07) ==
PROVIDERS: Emergency Provider Emergency Medicine
DX: R05.9 Cough, unspecified (principal); R53.1 Weakness; E11.9 Type 2 diabetes mellitus without complications
CPT/HCPCS: 71045; 99282; 99283

== ENCOUNTER → 2021-08-14 15:14 | Outpatient (BNVA) | payer MEDICAID, SELFPAY | PROVIDERS: PCP General Practice; Referring Provider General Practice; Visit Provider Surgery | DX: K64.4 Residual hemorrhoidal skin tags (principal); K64.8 Other hemorrhoids | CPT/HCPCS: 46600; 99202 ==

== ENCOUNTER 2021-11-11 17:52 | Emergency (ER) | payer MEDICAID, SELFPAY ==
--- NOTE | ~2021-11-11 | XR_ITS ---
EXAMINATION: XR CHEST CLINICAL INFORMATION: Chest pain COMPARISON: 06/13/2021 TECHNIQUE: Frontal view of the chest was obtained. FINDINGS: No focal consolidation, pulmonary edema, or pleural effusion. Stable cardiomediastinal silhouette. XR/XR chest 1V IMPRESSION: No acute cardiopulmonary findings.
[2021-11-11 18:51] VITALS: BP 140/72; PULSE 85; RESP 18; TEMP 36.8; O2SAT 98; BMI 52.6
--- NOTE | 2021-11-11 18:54 | ECG_ITS ---
Test Reason : CHEST PAIN Blood Pressure : / mmHG Vent. Rate : 082 BPM Atrial Rate : 082 BPM P-R Int : 168 ms QRS Dur : 094 ms QT Int : 380 ms P-R-T Axes : 060 016 013 degrees QTc Int : 443 ms Normal sinus rhythm Possible Anterior infarct (cited on or before 20-NOV-2019) Abnormal ECG When compared with ECG of 20-NOV-2019 23:42, No significant change was found Referred By: Generic ED Physician Electronically Signed By:NATAN BILLINGSLEY MD
[2021-11-11 19:11] VITALS: PULSE 91; O2SAT 98
--- NOTE | 2021-11-11 19:12 | PC.NURSE ---
pt with increased WOB and dry cough in triage. SPo2 checked 98% on RA. pt advised to breathe in through nose and out through mouth to decrease WOB
[2021-11-11 19:25] LABS: Hematocrit 37.9 % (37.0-47.0); Hemoglobin 12.1 g/dl (12.0-16.0); Mean Corpuscular HGB Conc 31.9 g/dl (31.0-35.0); Mean Corpuscular Volume 84.6 fL (80.0-98.0); Mean Platelet Volume 10.4 fL (9.4-12.3); Platelet Count 256 X10*3/uL (160-400); Red Blood Count 4.48 X10*6/uL (4.20-5.50); Red Cell Distribution Width 12.8 % (11.0-16.0); White Blood Count 9.1 X10*3/uL (4.8-10.8)
[2021-11-11 19:39] LABS: Anion Gap 12 (12-20); Blood Urea Nitrogen 10 mg/dL (9-16); Calcium 9.6 mg/dL (8.4-10.2); Carbon Dioxide 27 mmol/L (22-29); Chloride 100 mmol/L (96-108); Creatinine Clr Calc Pharmacy 134.1; Estimated Glomerular Filt Rate > 60; Glucose Random 243 mg/dL (60-115); Potassium 4.2 mmol/L (3.3-5.1); Sodium 135 mmol/L (135-145)
[2021-11-11 19:43] LABS: Influenza A Negative (Negative); Influenza B2 Negative (Negative)
[2021-11-11 19:44] LABS: COVID-19 Test Negative (Negative); IDNOW Serial# 16C4AD1C
[2021-11-11 19:47] LABS: B Type Natriuretic Peptide < 10 pg/mL (<100); Troponin-I High Sensitivity < 3.5 ng/L (<3.5-17.0)
[2021-11-11 22:31] VITALS: BP 141/77; PULSE 90; RESP 26; TEMP 37.4; O2SAT 97
--- NOTE | 2021-11-11 23:08 | ED.SOB ---
HPI - SOB/Dyspnea General Chief Complaint: Dyspnea Stated Complaint: SOB/chest pains/weakness Time Seen by Provider: 11/11/21 19:22 Source: patient Mode of arrival: ambulatory Limitations: no limitations History of Present Illness HPI Narrative: Patient's with history of asthma been coughing shortness of breath for 4- 5 days with rhinorrhea, other family members also sick with same patient received COVID [place] noticed a booster dose yet no fever no chills dry cough without any phlegm Related Data Home Medications Medication Instructions Recorded Confirmed metformin 750 mg tablet,extended 750 mg PO BID 10/04/20 08/14/21 release 24 hr abacavir 600 mg-dolutegravir 50 1 tab PO DAILY 02/25/21 08/14/21 mg-lamivudine 300 mg tablet (Triumeq) escitalopram oxalate 10 mg tablet 1 tab PO BID 02/25/21 08/14/21 (Lexapro) fluticasone propionate 50 1 spray intranasal DAILY 02/25/21 08/14/21 mcg/actuation nasal spray,suspension gabapentin 100 mg capsule 1 cap PO BID 02/25/21 08/14/21 loratadine 10 mg tablet 1 tab PO DAILY 02/25/21 08/14/21 multivitamin with folic acid 400 1 tab PO DAILY 02/25/21 08/14/21 mcg tablet (Daily-María (with folic acid)) metformin 500 mg tablet,extended 1,000 mg PO Q12H 05/05/21 08/14/21 release 24 hr multivitamin (One Daily 1 tab PO DAILY 05/05/21 08/14/21 Multivitamin) glipizide 10 mg tablet, extended 10 mg PO QAM 08/14/21 08/14/21 release 24 hr Previous Rx's Medication Instructions Recorded budesonide-formoterol HFA 160 2 puff PO BID #10.2 grams 04/29/20 mcg-4.5 mcg/actuation aerosol inhaler (Symbicort) albuterol sulfate 90 mcg/actuation 2 inh inhalation Q6H PRN shortness 05/27/20 aerosol inhaler of breath or wheezing 30 days #18 grams acetaminophen 500 mg tablet 500 mg PO Q6H PRN pain or fever 01/27/21 (Tylenol Extra Strength) #20 tabs cyclobenzaprine 5 mg tablet 5 mg PO Q8H PRN pain (scale score 01/27/21 7-10) 5 days #14 tabs hydrocodone 5 mg-acetaminophen 325 1 tab PO Q6H PRN pain #3 tabs 01/27/21 mg tablet lidocaine 5 % topical patch 1 patch topical DAILY PRN pain #30 01/27/21 (Lidoderm) ea naproxen 500 mg tablet 500 mg PO BID PRN pain 10 days #20 01/27/21 tabs dicyclomine 20 mg tablet 20 mg PO QIDACHS 30 days #120 tabs 05/05/21 famotidine 40 mg tablet (Pepcid) 40 mg PO BEDTIME 30 days #30 tabs 05/05/21 hydrocortisone 2.5 % topical cream 1 appl [place] BID hemorrhoids #30 grams 05/05/21 with perineal applicator (Proctosol HC) omeprazole 20 mg capsule,delayed 20 mg PO QAM #30 caps 05/05/21 release simethicone 180 mg capsule (Gas 180 mg PO .Q.i.d. PRN 05/05/21 Relief (simethicone)) Gastrointestinal Spasms Or Cramping 30 days #90 caps albuterol sulfate 90 mcg/actuation 2 puff inhalation Q4-6H PRN 11/12/21 aerosol inhaler (ProAir HFA) Wheezing #8.5 grams codeine 10 mg-guaifenesin 100 mg/5 10 ml PO Q6H PRN cough #237 mL 11/12/21 mL oral liquid prednisone 20 mg tablet 40 mg PO DAILY #10 tabs 11/12/21 Allergies Allergy/AdvReac Type Severity Reaction Status Date / Time No Known Allergies Allergy Verified 08/14/21 15:58 [No Known Allergies*] Review of Systems Review of Systems: Yes all other systems are reviewed and are negative [facility] Past Medical History Surgical History H/O colonoscopy History of cholecystectomy History of esophagogastroduodenoscopy (EGD) Family History Family History Other Asthma History of cancer of uterus History of liver cancer History of ovarian cancer History of pancreatic cancer Social History Social History Alcohol intake: current Alcohol intake frequency: does not drink Patient Tobacco Use Status: Former Tobacco user Quit Date: 7 years ago Tobacco use type: Cigarette Advance Directives: No Advance Directives Information Provided: No Physical Exam Vital Signs: Vital Signs: Last Vital Signs Temp 99.3 F 11/11/21 22:31 Pulse 84 11/12/21 00:25 Resp 15 11/12/21 00:25 BP 141/77 H 11/11/21 22:31 Pulse Ox 97 11/11/21 22:31 O2 Del Method 11/11/21 22:31 BMI result Body Mass Index 52.6 Appearance: Alert. Oriented X3. No acute distress. ENT: Pharynx normal. Oral Mucosa moist clear rhinorrhea Neck: Normal inspection. Neck supple. CVS: Normal heart rate and rhythm. Pulses normal. Respiratory: No respiratory distress. Equal air entry bilateral, bilateral wheezing and rhonchi no crackles Abdomen: Soft and nontender. Bowel sounds are present, no mass palpable, Skin: Skin warm and dry. Normal skin color. Normal skin turgor. Extremities: No lower extremity edema. No calf tenderness Neuro: Oriented X 3. MDM - SOB/Dyspnea MDM Narrative Medical decision making narrative: Patient's asthma in COVID negative influenza negative chest x-ray negative will discharge patient on prednisone and albuterol treatments Lab Data Attestation: I reviewed the patient's lab results. Result diagrams: 11/11/21 19:19 11/11/21 19:19 Labs: Lab Results 11/11/21 11/11/21 11/11/21 Range/Units 19:19 19:19 19:19 WBC 9.1 (4.8-10.8) X10*3/uL RBC 4.48 (4.20-5.50) X10*6/uL Hgb 12.1 (12.0-16.0) g/dl Hct 37.9 (37.0-47.0) % MCV 84.6 (80.0-98.0) fL MCH 27.0 (27.0-33.0) pg MCHC 31.9 (31.0-35.0) g/dl RDW 12.8 (11.0-16.0) % Plt Count 256 (160-400) X10*3/uL MPV 10.4 (9.4-12.3) fL Absolute Nucleated RBC 0.000 (0.0-0.012) X10*3/uL Nucleated RBC % (auto) 0.0 (0.0-0.2) /100WBC Sodium 135 (135-145) mmol/L Potassium 4.2 (3.3-5.1) mmol/L Chloride 100 (96-108) mmol/L Carbon Dioxide 27 (22-29) mmol/L Anion Gap 12 (12-20) BUN 10 (9-16) mg/dL Creatinine 0.80 (0.5-1.4) mg/dL Estim Creat Clear Calc 134.1 Estimated GFR > 60 Random Glucose 243 H (60-115) mg/dL Calcium 9.6 (8.4-10.2) mg/dL Troponin I High Sens < 3.5 (<3.5-17.0) ng/L B-Natriuretic Peptide < 10 (<100) pg/mL COVID-19 (JILLIAN) (Negative) COVID-19 Clin Com Influenza Type A (ONEYDA) (Negative) Influenza Type B (ONEYDA) (Negative) Influenza A & B Note 11/11/21 11/11/21 Range/Units 19:19 19:19 WBC (4.8-10.8) X10*3/uL RBC (4.20-5.50) X10*6/uL Hgb (12.0-16.0) g/dl Hct (37.0-47.0) % MCV (80.0-98.0) fL MCH (27.0-33.0) pg MCHC (31.0-35.0) g/dl RDW (11.0-16.0) % Plt Count (160-400) X10*3/uL MPV (9.4-12.3) fL Absolute Nucleated RBC (0.0-0.012) X10*3/uL Nucleated RBC % (auto) (0.0-0.2) /100WBC Sodium (135-145) mmol/L Potassium (3.3-5.1) mmol/L Chloride (96-108) mmol/L Carbon Dioxide (22-29) mmol/L Anion Gap (12-20) BUN (9-16) mg/dL Creatinine (0.5-1.4) mg/dL Estim Creat Clear Calc Estimated GFR Random Glucose (60-115) mg/dL Calcium (8.4-10.2) mg/dL Troponin I High Sens (<3.5-17.0) ng/L B-Natriuretic Peptide (<100) pg/mL COVID-19 (JILLIAN) Negative (Negative) COVID-19 Clin Com See Note Influenza Type A (ONEYDA) Negative (Negative) Influenza Type B (ONEYDA) Negative (Negative) Influenza A & B Note See Note Discharge Plan Discharge Clinical Impression: Acute bronchitis Patient Disposition: Home, Self-Care Instructions: Acute Bronchitis (ED) Additional Instructions: Drink plenty of fluids Cough syrup was advised Use albuterol inhaler/nebulizer treatment every 4-6 hours Prednisone as advised Prescriptions: New prednisone 20 mg tablet 40 mg PO DAILY Qty: 10 0RF codeine-guaifenesin 10-100 mg/5 mL liquid 10 ml PO Q6H PRN (Reason: cough) Qty: 237 0RF albuterol sulfate [ProAir HFA] 90 mcg/actuation HFA aerosol inhaler 2 puff inhalation Q4-6H PRN (Reason: Wheezing) Qty: 8.5 0RF No Action budesonide-formoterol [Symbicort] 160-4.5 mcg/actuation HFA aerosol inhaler 2 puff PO BID Qty: 10.2 0RF acetaminophen [Tylenol Extra Strength] 500 mg tablet 500 mg PO Q6H PRN (Reason: pain or fever) Qty: 20 0RF lidocaine [Lidoderm] 5 % adhesive patch,medicated 1 patch topical DAILY MDD remove after 12 hours PRN (Reason: pain) Qty: 30 0RF Rx Instructions: leave on most painful area for up to 12 hrs naproxen 500 mg tablet 500 mg PO BID PRN (Reason: pain) 10 Days Qty: 20 0RF cyclobenzaprine 5 mg tablet 5 mg PO Q8H PRN (Reason: pain (scale score 7-10)) 5 Days Qty: 14 0RF hydrocodone-acetaminophen 5-325 mg tablet 1 tab PO Q6H PRN (Reason: pain) Qty: 3 0RF gabapentin 100 mg capsule 1 cap PO BID fluticasone propionate 50 mcg/actuation spray,suspension 1 spray intranasal DAILY loratadine 10 mg tablet 1 tab PO DAILY escitalopram oxalate [Lexapro] 10 mg tablet 1 tab PO BID multivitamin with folic acid [Daily-María (with folic acid)] 400 mcg tablet 1 tab PO DAILY Triumeq 600-50-300 mg tablet 1 tab PO DAILY albuterol sulfate 90 mcg/actuation HFA aerosol inhaler 2 inh inhalation Q6H PRN (Reason: shortness of breath or wheezing) 30 Days Qty: 18 12RF metformin 750 mg tablet extended release 24 hr 750 mg PO BID multivitamin [One Daily Multivitamin] Tablet 1 tab PO DAILY metformin 500 mg tablet extended release 24 hr 1,000 mg PO Q12H dicyclomine 20 mg tablet 20 mg PO QIDACHS 30 Days Qty: 120 6RF famotidine [Pepcid] 40 mg tablet 40 mg PO BEDTIME 30 Days Qty: 30 6RF omeprazole 20 mg capsule,delayed release(DR/EC) 20 mg PO QAM Qty: 30 6RF simethicone [Gas Relief (simethicone)] 180 mg capsule 180 mg PO .Q.i.d. PRN (Reason: Gastrointestinal Spasms Or Cramping) 30 Days Qty: 90 6RF hydrocortisone [Proctosol HC] 2.5 % cream with perineal applicator 1 appl [place] BID Qty: 30 6RF glipizide 10 mg tablet extended release 24hr 10 mg PO QAM
[2021-11-12] MEDS: dexAMETHasone 2 MG TABLET 10 MG PO (00:15)
--- NOTE | 2021-11-12 00:17 | PC.NURSE ---
Medicated per Jul. Notified PEEWEE Wray.
--- NOTE | 2021-11-12 00:19 | PC.NURSE ---
pt a&o, thai speacking. denies increase sob at this time. no retractions. Pt able to speak in full sentences. Respiratory called for respiratory treatment. Reported off to PEEWEE Wray.
[2021-11-12] MEDS: Albuterol/Iprat 2.5/0.5MG 3 ML AMPUL.NEB INHALE (00:24)
[2021-11-12] MEDS: Albuterol Sulfate (0.083%) 2.5 MG/3 ML VIAL.NEB 7.5 MG INHALE (00:24)
[2021-11-12 00:25] VITALS: PULSE 84; RESP 15; O2SAT 100
== END 2021-11-12 01:28 | disposition home or self-care (01) ==
PROVIDERS: Emergency Provider Internal Medicine; PCP General Practice
DX: J20.9 Acute bronchitis, unspecified (principal); R06.02 Shortness of breath; R05.9 Cough, unspecified; Z20.822 Contact with and (suspected) exposure to COVID-19; Z87.891 Personal history of nicotine dependence; Z79.899 Other long term (current) drug therapy
CPT/HCPCS: 36415; 71045; 80048; 83880; 84484; 85027; 87502; 87635; 93005; 94640; 94644; 99284; J8540

== ENCOUNTER 2021-12-05 23:24 | Emergency (ER) | payer MEDICAID, SELFPAY ==
--- NOTE | ~2021-12-05 | CT_ITS ---
EXAMINATION: CT ABDOMEN AND PELVIS WITHOUT CONTRAST CLINICAL INFORMATION: Diffuse pain COMPARISON: 06/10/2021 TECHNIQUE: Multidetector volumetric imaging was performed from the superior aspect of the liver through the pubic symphysis. Sagittal and coronal reformatted images were obtained on the technologist's workstation. This CT examination was performed using dose optimization techniques as appropriate, variously including the following: *Automated exposure control *Adjustment of mA and/or kV according to patient size (this includes techniques or standardized protocols for targeted exams where dose is matched to indication/reason for exam; i.e. extremities or head) *Use of iterative reconstruction technique DLP: 1631 mGy-cm FINDINGS: LUNG BASES: The visualized lung bases are unremarkable. LIVER, GALLBLADDER, AND BILIARY TREE: The liver is normal in size, shape, and attenuation. No focal hepatic lesion or biliary ductal dilatation is identified. Patient is status post cholecystectomy. PANCREAS: Unremarkable. SPLEEN: Unremarkable. ADRENAL GLANDS: Unremarkable. KIDNEYS AND URETERS: The kidneys are normal in size, shape, and attenuation. No hydronephrosis, hydroureter, or calculi seen. No perinephric stranding. BLADDER: Mildly distended and grossly unremarkable. GASTROINTESTINAL TRACT: No evidence of bowel obstruction or significant wall thickening. Appendix appears nondilated. No free fluid or free air is seen. ABDOMINAL WALL: No significant hernia is appreciated. LYMPH NODES: Normal. VASCULAR: Unremarkable. PELVIC VISCERA: Status post hysterectomy. OSSEOUS STRUCTURES: Unremarkable. CT/CT abdomen pelvis wo con IMPRESSION: No acute findings identified in the abdomen/pelvis.
[2021-12-06 00:10] VITALS: BP 139/90; PULSE 88; RESP 20; TEMP 36.7; O2SAT 97; BMI 53.9
[2021-12-06 00:53] LABS: MANUAL DIFF FLAG NO
[2021-12-06 00:56] LABS: Basophils Percent Auto 0.4 % (0-2); Eosinophils Absolute Auto 0.2 X10*3/uL (0.0-0.4); Eosinophils Percent Auto 2.8 % (0-4); Hematocrit 37.6 % (37.0-47.0); Hemoglobin 12.2 g/dl (12.0-16.0); Imm Gran Abs Auto 0.02 X10*3/uL (0.00-0.03); Imm Gran Pct Auto 0.3 % (0.0-0.4); Lymphocytes Absolute Auto 3.3 X10*3/uL (1.2-4.9); Lymphocytes Percent Auto 41.2 % (20-40); Mean Corpuscular HGB Conc 32.4 g/dl (31.0-35.0); Mean Corpuscular Hemoglobin 27.1 pg (27.0-33.0); Mean Corpuscular Volume 83.4 fL (80.0-98.0); Mean Platelet Volume 10.5 fL (9.4-12.3); Monocytes Absolute Auto 0.5 X10*3/uL (0.1-1.2); Monocytes Percent Auto 5.8 % (2-11); Neutrophils Percent Auto 49.5 % (45-73); Platelet Count 263 X10*3/uL (160-400); Red Blood Count 4.51 X10*6/uL (4.20-5.50); Red Cell Distribution Width 13.6 % (11.0-16.0)
[2021-12-06 00:57] LABS: Appearance Urine CLEAR; Color Urine YELLOW; Glucose Urine UA >=1000 MG/DL (NEG); Leukocyte Esterase Urine NEG (NEG); Nitrite Urine NEG (NEG); PH 5.5 (5.0-8.0); Specific Gravity - Urine >= 1.030 (1.005-1.025); Urine Blood NEG (NEG); Urine Ketones 5 MG/DL (NEG); Urine Protein NEG (NEG-TRACE)
[2021-12-06 01:05] LABS: Bacteria Urine TRACE /LPF; Mucus Urine TRACE /LPF; RBC Urine 0 /HPF (0); Squamous Epithelial Cell Urine 1+ /LPF; WBC Urine 0 /HPF (0-4)
[2021-12-06 01:11] LABS: Alanine Aminotransferase 51 U/L (0-31); Albumin Level 4.3 g/dL (3.5-5.0); Alkaline Phosphatase 81 U/L (39-117); Aspartate Amino Transferase 39 U/L (5-31); Bilirubin Direct 0.2 mg/dL (0.0-0.5); Bilirubin Total 0.4 mg/dL (0.0-1.0); Lipase 27 U/L (8-78); Total Protein 8.4 g/dL (6.5-8.0)
--- NOTE | 2021-12-06 01:47 | ED_ITS ---
HPI - Abdominal Pain General Chief Complaint: Abdominal Pain Stated Complaint: R side/leg pain Time Seen by Provider: 12/06/21 01:23 Source: patient and ventilation equipment tender Mode of arrival: ambulatory History of Present Illness HPI narrative: 46-year-old female with history of hypertension and diabetes presents with complaints right upper quadrant pain that radiates down into her thigh that started approximately 2 days ago and she describes as squeezing in then releasing with associated nausea but no vomiting, chills but no fever and denies any urinary symptoms. Her last bowel movement was today and she continues to pass flatus. Related Data Home Medications Medication Instructions Recorded Confirmed metformin 750 mg tablet,extended 750 mg PO BID 10/04/20 08/14/21 release 24 hr abacavir 600 mg-dolutegravir 50 1 tab PO DAILY 02/25/21 08/14/21 mg-lamivudine 300 mg tablet (Triumeq) escitalopram oxalate 10 mg tablet 1 tab PO BID 02/25/21 08/14/21 (Lexapro) fluticasone propionate 50 1 spray intranasal DAILY 02/25/21 08/14/21 mcg/actuation nasal spray,suspension gabapentin 100 mg capsule 1 cap PO BID 02/25/21 08/14/21 loratadine 10 mg tablet 1 tab PO DAILY 02/25/21 08/14/21 multivitamin with folic acid 400 1 tab PO DAILY 02/25/21 08/14/21 mcg tablet (Daily-María (with folic acid)) metformin 500 mg tablet,extended 1,000 mg PO Q12H 05/05/21 08/14/21 release 24 hr multivitamin (One Daily 1 tab PO DAILY 05/05/21 08/14/21 Multivitamin) glipizide 10 mg tablet, extended 10 mg PO QAM 08/14/21 08/14/21 release 24 hr Previous Rx's Medication Instructions Recorded budesonide-formoterol HFA 160 2 puff PO BID #10.2 grams 04/29/20 mcg-4.5 mcg/actuation aerosol inhaler (Symbicort) albuterol sulfate 90 mcg/actuation 2 inh inhalation Q6H PRN shortness 05/27/20 aerosol inhaler of breath or wheezing 30 days #18 grams acetaminophen 500 mg tablet 500 mg PO Q6H PRN pain or fever 01/27/21 (Tylenol Extra Strength) #20 tabs cyclobenzaprine 5 mg tablet 5 mg PO Q8H PRN pain (scale score 01/27/21 7-10) 5 days #14 tabs hydrocodone 5 mg-acetaminophen 325 1 tab PO Q6H PRN pain #3 tabs 01/27/21 mg tablet lidocaine 5 % topical patch 1 patch topical DAILY PRN pain #30 01/27/21 (Lidoderm) ea naproxen 500 mg tablet 500 mg PO BID PRN pain 10 days #20 01/27/21 tabs dicyclomine 20 mg tablet 20 mg PO QIDACHS 30 days #120 tabs 05/05/21 famotidine 40 mg tablet (Pepcid) 40 mg PO BEDTIME 30 days #30 tabs 05/05/21 hydrocortisone 2.5 % topical cream 1 appl [place] BID hemorrhoids #30 grams 05/05/21 with perineal applicator (Proctosol HC) omeprazole 20 mg capsule,delayed 20 mg PO QAM #30 caps 05/05/21 release simethicone 180 mg capsule (Gas 180 mg PO .Q.i.d. PRN 05/05/21 Relief (simethicone)) Gastrointestinal Spasms Or Cramping 30 days #90 caps albuterol sulfate 90 mcg/actuation 2 puff inhalation Q4-6H PRN 11/12/21 aerosol inhaler (ProAir HFA) Wheezing #8.5 grams codeine 10 mg-guaifenesin 100 mg/5 10 ml PO Q6H PRN cough #237 mL 11/12/21 mL oral liquid prednisone 20 mg tablet 40 mg PO DAILY #10 tabs 11/12/21 Allergies Allergy/AdvReac Type Severity Reaction Status Date / Time No Known Allergies Allergy Verified 08/14/21 15:58 [No Known Allergies*] Review of Systems Review of Systems Pertinent positives and negatives as stated in HPI 10 point review of systems is otherwise negative. [facility] Past Medical History Source: nursing notes reviewed Medical History Abnormal chest x-ray Asthma At high risk for breast cancer Chest pain Chest pain Dyspnea External hemorrhoids with complication GERD (gastroesophageal reflux disease) Internal hemorrhoids with complication Irritable bowel syndrome with both constipation and diarrhea Morbid obesity MARLON (obstructive sleep apnea) Surgical History H/O colonoscopy History of cholecystectomy History of esophagogastroduodenoscopy (EGD) Family History Family History Other Asthma History of cancer of uterus History of liver cancer History of ovarian cancer History of pancreatic cancer Social History Social History Alcohol intake: current Alcohol intake frequency: does not drink Patient Tobacco Use Status: Former Tobacco user Quit Date: 7 years ago Tobacco use type: Cigarette Advance Directives: No Advance Directives Information Provided: Yes Physical Exam ED Vital Signs: Vital Signs - 24 hr 12/06/21 00:10 Temperature 98.1 F Pulse Rate 88 Respiratory Rate 20 Blood Pressure 139/90 H Pulse Oximetry 97 Oxygen Delivery Method Room Air BMI result Body Mass Index 53.9 VITAL SIGNS: Reviewed. GENERAL: Elevated BMI, well nourished, in no acute distress. HEAD: Normocephalic/atraumatic EYES: PERRLA, EOMI EARS: Ext canals without abnormality OROPHARYNX: no oral lesions noted, posterior pharynx clear LUNGS: Normal breath sounds. No adventitious sounds or accessory muscle use. SpO 2<97> CARDIOVASCULAR: Regular rate and rhythm without noted murmurs, ABDOMEN: Soft, diffusely tender, non-distended with bowel sounds. MUSCULOSKELETAL: No tenderness, deformities, or effusions noted on gross inspection. EXTREMITIES: No cyanosis, clubbing or edema. SKIN: Inspection of the skin reveals no rashes NEUROLOGIC: Alert and oriented x 4. Strength and sensation to light touch were grossly intact x 4. Course Course Course Narrative: 46-year-old female with history and clinical presentation initially thought to possibly be related with gallbladder but then patient stated that her entire abdomen was uncomfortable. Review of all investigations negative for acute findings, patient was provided with combination analgesics and informed of all results and discharged home in stable condition with instructions to follow-up with her primary care provider by calling the office on Wednesday morning. MDM - Abdominal Pain Lab Data Result diagrams: 12/06/21 00:41 12/06/21 00:41 Labs: Lab Results 12/06/21 12/06/21 12/06/21 Range/Units 00:41 00:41 00:48 WBC 8.0 (4.8-10.8) X10*3/uL RBC 4.51 (4.20-5.50) X10*6/uL Hgb 12.2 (12.0-16.0) g/dl Hct 37.6 (37.0-47.0) % MCV 83.4 (80.0-98.0) fL MCH 27.1 (27.0-33.0) pg MCHC 32.4 (31.0-35.0) g/dl RDW 13.6 (11.0-16.0) % Plt Count 263 (160-400) X10*3/uL MPV 10.5 (9.4-12.3) fL Immature Gran % (Auto) 0.3 (0.0-0.4) % Neut % (Auto) 49.5 (45-73) % Lymph % (Auto) 41.2 H (20-40) % [place] % (Auto) 5.8 (2-11) % Eos % (Auto) 2.8 (0-4) % Baso % (Auto) 0.4 (0-2) % Lymph # (Auto) 3.3 (1.2-4.9) X10*3/uL [place] # (Auto) 0.5 (0.1-1.2) X10*3/uL Eos # (Auto) 0.2 (0.0-0.4) X10*3/uL Baso # (Auto) 0.0 (0.0-0.2) X10*3/uL Abs Immat Gran (auto) 0.02 (0.00-0.03) X10*3/uL Absolute Neuts (auto) 4.0 (2.0-8.3) x10*3/uL Absolute Nucleated RBC 0.000 (0.0-0.012) X10*3/uL Nucleated RBC % (auto) 0.0 (0.0-0.2) /100WBC Sodium 133 L (135-145) mmol/L Potassium 4.2 (3.3-5.1) mmol/L Chloride 100 (96-108) mmol/L Carbon Dioxide 24 (22-29) mmol/L Anion Gap 13 (12-20) BUN 13 (9-16) mg/dL Creatinine 0.81 (0.5-1.4) mg/dL Estim Creat Clear Calc 130.1 Estimated GFR > 60 Random Glucose 298 H (60-115) mg/dL Calcium 9.4 (8.4-10.2) mg/dL Total Bilirubin 0.4 (0.0-1.0) mg/dL Direct Bilirubin 0.2 (0.0-0.5) mg/dL AST 39 H (5-31) U/L ALT 51 H (0-31) U/L Alkaline Phosphatase 81 (39-117) U/L Total Protein 8.4 H (6.5-8.0) g/dL Albumin 4.3 (3.5-5.0) g/dL Lipase 27 (8-78) U/L Urine Color YELLOW Urine Appearance CLEAR Urine pH 5.5 (5.0-8.0) Ur Specific [place] >= 1.030 H (1.005-1.025) Urine Protein NEG (NEG-TRACE) MG/DL Urine Glucose (UA) >=1000 H (NEG) MG/DL Urine Ketones 5 (NEG) MG/DL Urine Blood NEG (NEG) Urine Nitrite NEG (NEG) Ur Leukocyte Esterase NEG (NEG) Urine RBC 0 (0) /HPF Urine WBC 0 (0-4) /HPF Ur Squamous Epith Cells 1+ /LPF Urine Bacteria TRACE /LPF Urine Mucus TRACE /LPF Discharge Plan Discharge Clinical Impression: Abdominal pain, Irritable bowel syndrome Patient Disposition: Home, Self-Care Instructions: Irritable Bowel Syndrome (ED), Abdominal Pain (ED) Additional Instructions: 1. Reanudar todos los medicamentos caseros seg?n lo prescrito. Es posible que gonzalez SII le est? causando las molestias que est? experimentando. 2. Llame a bandar m?dico el lunes por la ma?stacia para programar shannan skyler para shannan reevaluaci?n adicional del manejo ambulatorio. Regrese a la rudy de emergencias si los s?ntomas empeoran. Prescriptions: No Action budesonide-formoterol [Symbicort] 160-4.5 mcg/actuation HFA aerosol inhaler 2 puff PO BID Qty: 10.2 0RF acetaminophen [Tylenol Extra Strength] 500 mg tablet 500 mg PO Q6H PRN (Reason: pain or fever) Qty: 20 0RF lidocaine [Lidoderm] 5 % adhesive patch,medicated 1 patch topical DAILY MDD remove after 12 hours PRN (Reason: pain) Qty: 30 0RF Rx Instructions: leave on most painful area for up to 12 hrs naproxen 500 mg tablet 500 mg PO BID PRN (Reason: pain) 10 Days Qty: 20 0RF cyclobenzaprine 5 mg tablet 5 mg PO Q8H PRN (Reason: pain (scale score 7-10)) 5 Days Qty: 14 0RF hydrocodone-acetaminophen 5-325 mg tablet 1 tab PO Q6H PRN (Reason: pain) Qty: 3 0RF gabapentin 100 mg capsule 1 cap PO BID fluticasone propionate 50 mcg/actuation spray,suspension 1 spray intranasal DAILY loratadine 10 mg tablet 1 tab PO DAILY escitalopram oxalate [Lexapro] 10 mg tablet 1 tab PO BID multivitamin with folic acid [Daily-María (with folic acid)] 400 mcg tablet 1 tab PO DAILY Triumeq 600-50-300 mg tablet 1 tab PO DAILY prednisone 20 mg tablet 40 mg PO DAILY Qty: 10 0RF codeine-guaifenesin 10-100 mg/5 mL liquid 10 ml PO Q6H PRN (Reason: cough) Qty: 237 0RF albuterol sulfate [ProAir HFA] 90 mcg/actuation HFA aerosol inhaler 2 puff inhalation Q4-6H PRN (Reason: Wheezing) Qty: 8.5 0RF albuterol sulfate 90 mcg/actuation HFA aerosol inhaler 2 inh inhalation Q6H PRN (Reason: shortness of breath or wheezing) 30 Days Qty: 18 12RF metformin 750 mg tablet extended release 24 hr 750 mg PO BID multivitamin [One Daily Multivitamin] Tablet 1 tab PO DAILY metformin 500 mg tablet extended release 24 hr 1,000 mg PO Q12H dicyclomine 20 mg tablet 20 mg PO QIDACHS 30 Days Qty: 120 6RF famotidine [Pepcid] 40 mg tablet 40 mg PO BEDTIME 30 Days Qty: 30 6RF omeprazole 20 mg capsule,delayed release(DR/EC) 20 mg PO QAM Qty: 30 6RF simethicone [Gas Relief (simethicone)] 180 mg capsule 180 mg PO .Q.i.d. PRN (Reason: Gastrointestinal Spasms Or Cramping) 30 Days Qty: 90 6RF hydrocortisone [Proctosol HC] 2.5 % cream with perineal applicator 1 appl [place] BID Qty: 30 6RF glipizide 10 mg tablet extended release 24hr 10 mg PO QAM Referrals: Roe,[facility] [Primary Care Provider] - Print Language: Luxembourgish
[2021-12-06 02:10] LABS: Anion Gap 13 (12-20); Blood Urea Nitrogen 13 mg/dL (9-16); Calcium 9.4 mg/dL (8.4-10.2); Carbon Dioxide 24 mmol/L (22-29); Chloride 100 mmol/L (96-108); Creatinine Clr Calc Pharmacy 130.1; Estimated Glomerular Filt Rate > 60; Glucose Random 298 mg/dL (60-115); Potassium 4.2 mmol/L (3.3-5.1); Sodium 133 mmol/L (135-145)
[2021-12-06] MEDS: Ketorolac Tromethamine 30 MG/ML VIAL 15 MG IVPUSH (03:31)
[2021-12-06] MEDS: Dicyclomine HCl 10 MG CAPSULE PO (03:32)
[2021-12-06] MEDS: Acetaminophen 325 MG TABLET 975 MG PO (03:32)
[2021-12-06 03:35] VITALS: BP 136/86; PULSE 68; RESP 18; TEMP 36.4; O2SAT 97
== END 2021-12-06 03:49 | disposition home or self-care (01) ==
PROVIDERS: Emergency Provider Student in an Organized Health Care Education/Training Program
DX: R10.9 Unspecified abdominal pain (principal); K58.9 Irritable bowel syndrome, unspecified; Z87.891 Personal history of nicotine dependence; E11.9 Type 2 diabetes mellitus without complications; Z79.84 Long term (current) use of oral hypoglycemic drugs
CPT/HCPCS: 36415; 74176; 80048; 80076; 81001; 83690; 85025; 96372; 99283; 99284; J1885

== ENCOUNTER → 2021-12-12 14:34 | Outpatient (BNVA) | payer MEDICAID, SELFPAY | PROVIDERS: Visit Provider Nurse Practitioner | DX: R10.9 Unspecified abdominal pain (principal); R11.2 Nausea with vomiting, unspecified; R79.89 Other specified abnormal findings of blood chemistry; N20.0 Calculus of kidney; E66.01 Morbid (severe) obesity due to excess calories; Z68.43 Body mass index [BMI] 50.0-59.9, adult | CPT/HCPCS: 99212 ==

== ENCOUNTER → 2022-04-03 11:13 | Outpatient (BNVA) | payer MEDICAID, SELFPAY | PROVIDERS: Visit Provider Nurse Practitioner | DX: R10.9 Unspecified abdominal pain (principal); R11.2 Nausea with vomiting, unspecified; K91.5 Postcholecystectomy syndrome; N20.0 Calculus of kidney | CPT/HCPCS: 99212 ==

== ENCOUNTER → 2022-04-24 08:53 | Outpatient (BNVA) | payer MEDICAID, SELFPAY | PROVIDERS: PCP General Practice; Visit Provider Hospitalist | DX: G47.33 Obstructive sleep apnea (adult) (pediatric) (principal); R06.00 Dyspnea, unspecified; J45.40 Moderate persistent asthma, uncomplicated; K21.9 Gastro-esophageal reflux disease without esophagitis; R07.82 Intercostal pain; Z79.899 Other long term (current) drug therapy; Z91.81 History of falling | CPT/HCPCS: 99212 ==

== ENCOUNTER → 2022-05-05 11:12 | Outpatient (BNVA) | payer MEDICAID, SELFPAY | PROVIDERS: PCP General Practice; Visit Provider Nurse Practitioner | DX: K91.5 Postcholecystectomy syndrome (principal); R10.9 Unspecified abdominal pain; K22.10 Ulcer of esophagus without bleeding; K21.9 Gastro-esophageal reflux disease without esophagitis; N20.0 Calculus of kidney | CPT/HCPCS: 99212 ==

== ENCOUNTER → 2022-06-04 12:19 | Outpatient (BNVA) | payer MEDICAID, SELFPAY | PROVIDERS: PCP General Practice; Visit Provider Nurse Practitioner | DX: K91.5 Postcholecystectomy syndrome (principal); K58.2 Mixed irritable bowel syndrome; K21.9 Gastro-esophageal reflux disease without esophagitis; R79.89 Other specified abnormal findings of blood chemistry | CPT/HCPCS: 99212 ==

== ENCOUNTER → 2022-06-10 10:10 | Outpatient (BNVA) | payer MEDICAID, SELFPAY | PROVIDERS: PCP General Practice; Referring Provider General Practice; Visit Provider Internal Medicine Cardiovascular Disease | DX: I20.0 Unstable angina (principal) | CPT/HCPCS: 93005; 99202 ==

== ENCOUNTER → 2022-06-25 12:25 | Outpatient (BNVA) | payer MEDICAID, SELFPAY | PROVIDERS: PCP General Practice; Visit Provider Nurse Practitioner | DX: K91.5 Postcholecystectomy syndrome (principal); R79.89 Other specified abnormal findings of blood chemistry; K58.2 Mixed irritable bowel syndrome; K21.9 Gastro-esophageal reflux disease without esophagitis; Z79.899 Other long term (current) drug therapy | CPT/HCPCS: 99212 ==

== ENCOUNTER → 2022-07-08 14:56 | Outpatient (BNVA) | payer MEDICAID, SELFPAY | PROVIDERS: PCP General Practice; Referring Provider General Practice; Visit Provider Nurse Practitioner Family | DX: R07.9 Chest pain, unspecified (principal); R06.02 Shortness of breath; Z98.890 Other specified postprocedural states | CPT/HCPCS: 99212 ==

== ENCOUNTER → 2022-07-15 14:51 | Outpatient (REF) | payer MEDICAID, SELFPAY ==
--- NOTE | 2022-07-15 14:54 | CA_ITS ---
Transthoracic Echocardiogram Patient (Last, First, Middle): Renetta Johnson R Gender: Female Date of : 1975 Age: 47 Procedure Date: 07/15/2022 Procedure Type: Transthoracic Echocardiogram Location: OP Height: 165.1 cm Weight: 101.61 kg BSA: 2.08 m2 Heart Rate: bpm BP: 120 / 70 mmHg Ladle Handler: JO Referring MD: Erica Mercer CATALYST OPERATOR-C Symptoms: R06.02 - Shortness of breath Study Quality: Technically Difficult/Contrast Conclusions: - The left ventricular systolic function is normal. The calculated ejection fraction is 61% by biplane method. - No obvious valvular pathology seen on this study. Findings Procedure Information Contrast agent, definity, is being given per protocol without apparent complications. Left Ventricle Normal left ventricular cavity size. There is normal left ventricular wall thickness. The left ventricular systolic function is normal. The calculated ejection fraction is 61% by biplane method. There is no evidence of regional wall motion abnormalities. Diastolic function is normal for age. Right Ventricle The right ventricle was not well visualized. There is normal right ventricular systolic function. Atria The left atrium is normal in size. The right atrium was not well visualized. Aortic Valve There is a normal trileaflet aortic valve. There is no aortic valve stenosis. There is no aortic valve regurgitation. Mitral Valve There is mild anterior mitral leaflet thickening. There is no mitral valve regurgitation. There is no mitral valve stenosis. Pulmonic Valve The pulmonic valve is likely normal. Tricuspid Valve There is trace tricuspid valve regurgitation. There is no evidence of pulmonary hypertension. Great Vessels The asc aorta is normal in size. Venous The inferior vena cava is normal in size and collapses greater than 50% with inspiration. Pericardium/Pleural There is a trivial pericardial effusion. Prior Study Comparison No significant change compared to prior study dated: 10/26/2015. Recommendations, Care & Conclusions No obvious valvular pathology seen on this study. Measurements 2D Linear Measurements IVSd: 0.92 0.6-0.9/0.6-1.0 cm LVIDd: 4.99 3.9-5.3/4.2-5.9 cm LVIDd Index: 2.40 2.4-3.2/2.2-3.1 cm/m2 LVIDs: 2.83 2.0-3.6 cm LVPWd: 1.06 0.7-1.1 cm LA Diam: 3.60 2.7-3.8/3.0-4.0 cm LAIDs Index: 1.73 1.5-2.3 cm/m2 LV Mass: 223.39 67-162/88-224 g LV Mass Index: 107.40 43-95/49-115 g/m2 LVOT Diam: 1.90 3.0+(-)1.3 cm 2D Systolic Function EF 4C: 58.40 >55% EF 2C: 64.00 >55% EF BiP: 60.90 >55% Mitral Valve MV Pk E: 0.84 MV PK A: 0.69 MV Decel Time: 234.00 E/A: 1.20 E'Lateral: 12.10 E'Medial: 11.10 E/E' Med: 7.60 E/E' Lat: 7.00 PHT: 68.00 MVA PHT: 3.24 Decel [place]: 3.61 Aortic Valve AoV Pk Josef: 1.51 AoV Mn Josef: 1.03 AoV VTI: 0.31 AoV Pk Grad: 9.00 Aov Mn Grad: 5.00 JOEL Cont.VTI: 2.36 LVOT LVOT Pk Josef: 1.18 LVOT Mn Josef: 0.82 LVOT VTI: 0.26 LVOT Pk Grad: 6.00 LVOT Mn Grad: 3.00 LVOT Diam: 1.90 LVOT Area: 2.84 Diastolic Function MV Pk E: 0.84 MV Pk A: 0.69 E/A: 1.20 E'Medial: 11.10 E/E' Med: 7.60 E' Laterial: 12.10 E/E' Lat: 7.00 Right Ventricle TAPSE (mm): 24.40 TVS' Josef: 11.60 Tricuspid Valve TR Pk Josef: 1.86 TR Pk Grad: 14.00 Great Vessels Aorta Sinus of Valsalva: 3.60 2.0-3.5 cm Ao Asc: 3.40 2.1-3.4 cm Pulmonary Valve PV Pk Josef: 1.18 Peak PV Grad: 6.00 Updated in Other Vendor System with Status of Final Tarik Forrest MD electronically signed on 07/17/2022 3:14:03 PM with status of Final
== END ==
LOC: HO.CARD 14:51
PROVIDERS: PCP General Practice; Visit Provider Nurse Practitioner Family
DX: R06.02 Shortness of breath (principal); E66.01 Morbid (severe) obesity due to excess calories
CPT/HCPCS: 93306; Q9957

== ENCOUNTER 2022-07-31 10:34 | Outpatient (REF) | payer MEDICAID, SELFPAY ==
[2022-07-31 11:31] LABS: MANUAL DIFF FLAG NO
[2022-07-31 12:07] LABS: Basophils Absolute Auto 0.1 X10*3/uL (0.0-0.2); Basophils Percent Auto 0.6 % (0-2); Eosinophils Absolute Auto 0.1 X10*3/uL (0.0-0.4); Eosinophils Percent Auto 1.5 % (0-4); Hematocrit 38.9 % (37.0-47.0); Hemoglobin 12.5 g/dl (12.0-16.0); Imm Gran Abs Auto 0.02 X10*3/uL (0.00-0.03); Imm Gran Pct Auto 0.3 % (0.0-0.4); Lymphocytes Absolute Auto 2.6 X10*3/uL (1.2-4.9); Lymphocytes Percent Auto 32.4 % (20-40); Mean Corpuscular HGB Conc 32.1 g/dl (31.0-35.0); Mean Corpuscular Hemoglobin 26.9 pg (27.0-33.0); Mean Corpuscular Volume 83.8 fL (80.0-98.0); Mean Platelet Volume 10.5 fL (9.4-12.3); Monocytes Absolute Auto 0.3 X10*3/uL (0.1-1.2); Monocytes Percent Auto 4.2 % (2-11); Neutrophils Absolute Auto 4.8 x10*3/uL (2.0-8.3); Platelet Count 282 X10*3/uL (160-400); Red Blood Count 4.64 X10*6/uL (4.20-5.50); Red Cell Distribution Width 13.2 % (11.0-16.0); White Blood Count 7.9 X10*3/uL (4.8-10.8)
[2022-07-31 12:19] LABS: D Dimer High Sensitivity 156 NG/ML
[2022-07-31 12:54] LABS: Erythrocyte Sedimentation Rate 44 MM/HR (0-20)
[2022-07-31 13:05] LABS: Anion Gap 13 (12-20); Blood Urea Nitrogen 11 mg/dL (9-16); Calcium 9.3 mg/dL (8.4-10.2); Carbon Dioxide 28 mmol/L (22-29); Chloride 101 mmol/L (96-108); Estimated Glomerular Filt Rate > 60; Glucose Random 177 mg/dL (60-115); Potassium 4.7 mmol/L (3.3-5.1); Sodium 137 mmol/L (135-145)
== END 2022-07-31 10:35 | disposition home or self-care (01) ==
LOC: HO.LAB 10:34
PROVIDERS: PCP General Practice; Visit Provider Hospitalist
DX: R07.9 Chest pain, unspecified (principal); J45.909 Unspecified asthma, uncomplicated
CPT/HCPCS: 36415; 80048; 85025; 85379; 85652; 99212

== ENCOUNTER 2022-08-05 14:28 | Outpatient (REF) | payer MEDICAID, SELFPAY ==
--- NOTE | ~2022-08-05 | US_ITS ---
EXAMINATION: US VENOUS ULTRASOUND WITH DOPPLER LOWER EXTREMITY, RIGHT CLINICAL INFORMATION: Pain and swelling right lower extremity COMPARISON: Bilateral DVT study 12/01/2019 TECHNIQUE: Ultrasound of the deep veins is performed from the hip to the calf with compression sonography and color and pulse Doppler assessment. Spectral analysis with color-flow imaging is performed. FINDINGS: There is normal venous compression and respiratory variation and augmented flow. The visualized common femoral vein, superficial femoral vein, profunda femoral vein, popliteal vein, and the trifurcation region shows no evidence of deep venous thrombosis. There is no significant popliteal fossa cyst. Contralateral left common femoral vein appears normal. If the patient's symptoms persist, followup ultrasound in 5 days 7 days might be of value to exclude proximal propagation from a non-visualized calf vein. US/US venous duplex LE RT IMPRESSION: No DVT demonstrated in the right lower extremity.
== END 2022-08-05 14:29 | disposition home or self-care (01) ==
LOC: HO.US 14:28
PROVIDERS: PCP General Practice; Visit Provider General Practice
DX: M25.561 Pain in right knee (principal); M25.461 Effusion, right knee; G89.29 Other chronic pain
CPT/HCPCS: 93971

== ENCOUNTER 2022-08-30 16:28 | Emergency (ER) | payer MEDICAID, SELFPAY ==
--- NOTE | ~2022-08-30 | XR_ITS ---
EXAMINATION: XR CHEST CLINICAL INFORMATION: Cough, evaluate for pneumonia COMPARISON: Chest x-ray on 11/11/2021 TECHNIQUE: Frontal view of the chest was obtained. FINDINGS: The cardiac silhouette is normal. There is mild diffuse bronchial wall thickening. There are no areas of consolidation. There are no pleural effusions or pneumothoraces. The bones and soft tissues are unremarkable for the patient's age. XR/XR chest 1V IMPRESSION: Bronchial wall thickening may be infectious and/or inflammatory in etiology.
[2022-08-30 16:41] VITALS: BP 143/80; PULSE 91; RESP 22; TEMP 37.3; O2SAT 96; BMI 51.9
--- NOTE | 2022-08-30 16:42 | ED_ITS ---
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 Patient reports that her symptoms started night. She reports cough, congestion, subjective fevers, facial pressure, runny nose. She reports watery eyes but no red or itchy eyes. She feels short of breath and have body aches. She reports the history of pneumonia. The patient was started on prednisone on Wednesday for her symptoms without any improvement Denies any chest pain <Sree Thayer - Last Filed: 08/30/22 21:14> Related Data Home medications: Home Medications Medication Instructions Recorded Confirmed abacavir 600 mg-dolutegravir 50 1 tab PO DAILY 02/25/21 07/08/22 mg-lamivudine 300 mg tablet (Triumeq) escitalopram oxalate 10 mg tablet 1 tab PO BID 02/25/21 07/08/22 (Lexapro) fluticasone propionate 50 1 spray intranasal DAILY 02/25/21 07/08/22 mcg/actuation nasal spray,suspension gabapentin 100 mg capsule 1 cap PO BID 02/25/21 07/08/22 loratadine 10 mg tablet 1 tab PO DAILY 02/25/21 07/08/22 metformin 500 mg tablet,extended 1,000 mg PO Q12H 05/05/21 07/08/22 release 24 hr multivitamin (One Daily 1 tab PO DAILY 05/05/21 07/08/22 Multivitamin tablet) glipizide 10 mg tablet, extended 10 mg PO QAM 08/14/21 07/08/22 release 24 hr diclofenac sodium 1 % topical gel 2 g topical BID 05/05/22 07/08/22 lancets 28 gauge (Sure Comfort #100 ea 06/04/22 07/08/22 Lancets) Previous Rx's Medication Instructions Recorded cyclobenzaprine 5 mg tablet 5 mg PO Q8H PRN pain (scale score 01/27/21 7-10) 5 days #14 tabs hydrocodone 5 mg-acetaminophen 325 1 tab PO Q6H PRN pain #3 tabs 01/27/21 mg tablet lidocaine 5 % topical patch 1 patch topical DAILY PRN pain #30 01/27/21 (Lidoderm) ea naproxen 500 mg tablet 500 mg PO BID PRN pain 10 days #20 01/27/21 tabs hydrocortisone 2.5 % topical cream 1 appl OR BID hemorrhoids #30 grams 05/05/21 with perineal applicator (Proctosol HC) albuterol sulfate 90 mcg/actuation 2 puff inhalation Q4-6H PRN 11/12/21 aerosol inhaler (ProAir HFA) Wheezing #8.5 grams ketorolac 10 mg tablet 10 mg PO QID PRN pain 5 days #90 12/12/21 tabs ondansetron HCl 4 mg tablet 4 mg PO BID-TID PRN nausea and 12/12/21 vomiting 14 days #14 tabs tamsulosin 0.4 mg capsule (Flomax) 0.4 mg PO DAILY #30 caps 12/12/21 albuterol sulfate 90 mcg/actuation 2 puff inhalation QID PRN 04/24/22 aerosol inhaler (Ventolin HFA) shortness of breath or wheezing 30 days #18 grams budesonide-formoterol HFA 160 2 puff PO BID #10.2 grams 04/24/22 mcg-4.5 mcg/actuation aerosol inhaler (Symbicort) famotidine 40 mg tablet (Pepcid) 40 mg PO BEDTIME 30 days #30 tabs 06/25/22 omeprazole 40 mg capsule,delayed 40 mg PO DAILY 30 days #30 caps 06/25/22 release psyllium husk 0.4 gram capsule 0.4 g PO BEDTIME 30 days #30 caps 06/25/22 (Daily Fiber) sennosides 8.6 mg tablet (Izabel-rayray) 17.2 mg PO BEDTIME constipation 06/25/22 #60 tabs simethicone 180 mg capsule (Gas 180 mg PO TIDWMEAL 06/25/22 Relief (simethicone)) Gastrointestinal Spasms Or Cramping 30 days #90 caps fluticasone fur. 200 mcg-umeclid 1 inh inhalation DAILY 30 days #60 07/31/22 62.5 mcg-vilant 25 mcg ea inhalat.powder (Trelegy Ellipta) prednisone 10 mg tablet See Rx Instructions PO DAILY 10 07/31/22 days #15 tabs azithromycin 250 mg tablet 250 mg PO DAILY 4 days #4 tabs 08/30/22 fluticasone propionate 50 1 spray intranasal DAILY #16 grams 08/30/22 mcg/actuation nasal spray,suspension <MARY Palomino - Last Filed: 08/31/22 12:27> Allergies/adverse reactions: Allergies Allergy/AdvReac Type Severity Reaction Status Date / Time No Known Allergies Allergy Verified 08/30/22 16:41 [No Known Allergies*] <MARY Palomino Last Filed: 08/31/22 12:27> Review of Systems Constitutional: Constitutional: Reports as per HPI, Reports body ache(s), Reports chills, Reports fever(s), Reports headache(s) and Reports weakness <Sree Thayer - Last Filed: 08/30/22 21:14> Eyes: Eyes: Denies change in vision <Sree Thayer - Last Filed: 08/30/22 21:14> ENT: Reports headache(s), Reports nasal congestion, Reports nasal discharge and Denies sore throat <Sree Thayer - Last Filed: 08/30/22 21:14> Cardiovascular: Cardiovascular: Denies chest pain and Reports dyspnea <Sree Thayer - Last Filed: 08/30/22 21:14> Respiratory: Respiratory: Reports chest congestion, Reports cough, Reports dyspnea and Reports wheezing <Sree Thayer - Last Filed: 08/30/22 21:14> Gastrointestinal: Gastrointestinal: Denies abdominal pain, Denies constipation and Denies vomiting <Sree Thayer - Last Filed: 08/30/22 21:14> Genitourinary: Genitourinary: Denies dysuria <Sree Thayer - Last Filed: 08/30/22 21:14> Integumentary/Breasts: Skin/Breast: Denies rash <Sree Thayer - Last Filed: 08/30/22 21:14> Neurologic: Reports headache(s), Denies focal weakness and Reports weakness <Sree Thayer - Last Filed: 08/30/22 21:14> Allergic/Immunologic: Allergic/Immunologic: Reports wheezing <Sree Thayer - Last Filed: 08/30/22 21:14> [facility] Past Medical History Medical History: Medical History (Updated 08/31/22 @ 00:01 by Taye Han) Abnormal chest x-ray Asthma Asthma At high risk for breast cancer Chest pain Chest pain Chest pain Dyspnea External hemorrhoids with complication GERD (gastroesophageal reflux disease) Internal hemorrhoids with complication Irritable bowel syndrome with both constipation and diarrhea Morbid obesity MARLON (obstructive sleep apnea) <MARY Palomino - Last Filed: 08/31/22 12:27> Surgical History: Surgical History (Updated 07/08/22 @ 15:38 by Erica Mercer NP-C) H/O colonoscopy History of cardiac cath History of cholecystectomy History of esophagogastroduodenoscopy (EGD) <MARY Palomino - Last Filed: 08/31/22 12:27> Family History Family History: Family History Mother Heart attack Pacemaker Other Asthma History of cancer of uterus History of liver cancer History of ovarian cancer History of pancreatic cancer <MARY Palomino - Last Filed: 08/31/22 12:27> Social History Social History: Social History Alcohol intake: never Patient Tobacco Use Status: Former Tobacco user Quit Date: 2014 Smoked: 10 +/- Advance Directives: No Advance Directives Information Provided: Yes <MARY Palomino - Last Filed: 08/31/22 12:27> Physical Exam ED Vital Signs: Vital Signs - 24 hr 08/30/22 16:41 Temperature 99.1 F Pulse Rate 91 Respiratory Rate 22 H Blood Pressure 143/80 H Pulse Oximetry 96 Oxygen Delivery Method Room Air BMI result Body Mass Index 51.9 <MARY Palomino - Last Filed: 08/31/22 12:27> Vital Signs - 24 hr 08/30/22 16:41 Temperature 99.1 F Pulse Rate 91 Respiratory Rate 22 H Blood Pressure 143/80 H Pulse Oximetry 96 Oxygen Delivery Method Room Air BMI result Body Mass Index 51.9 <Sree Thayer - Last Filed: 08/30/22 21:14> Const General: healthy appearing, comfortable, no acute distress, alert and awake <Sree Thayer - Last Filed: 08/30/22 21:14> Nutritional Appearance: well nourished <Sree PhelpsOldham - Last Filed: 08/30/22 21:14> Orientation/consciousness: patient oriented x3 <Sree Telloy - Last Filed: 08/30/22 21:14> HENMT Head: Yes normocephalic and Yes atraumatic <Sree OOldham - Last Filed: 08/30/22 21:14> Throat: Yes posterior oropharynx normal <Sree Tello Last Filed: 08/30/22 21:14> Eyes Eyelids: Yes eyelids normal <Sree OOldham - Last Filed: 08/30/22 21:14> Conjunctivae: conjunctivae normal <Sree PhelpsOldham - Last Filed: 08/30/22 21:14> Sclerae: sclerae normal <Sree OOldham - Last Filed: 08/30/22 21:14> Corneas: corneas normal <Sree PhelpsOldham - Last Filed: 08/30/22 21:14> Pupils: Equal, round and reactive pupils present <Sree PhelpsOldham - Last Filed: 08/30/22 21:14> EOM: EOMs intact bilaterally <Sree PhelpsPaul - Last Filed: 08/30/22 21:14> Neck Neck: Yes full ROM <Sree Tello Last Filed: 08/30/22 21:14> Resp Other: Insert main, nonproductive cough. Patient speaking in full, clear sentences <Sree Thayer - Last Filed: 08/30/22 21:14> Effort & Inspection: normal respiratory effort, able to speak in complete sentences, no audible wheezes and not labored <Sree Thayer Last Filed: 08/30/22 21:14> Auscultation: clear to auscultation bilaterally <Sreeconcepción Telloy - Last Filed: 08/30/22 21:14> Cardio Rate: regular rate <Sreeconcepción Tello Last Filed: 08/30/22 21:14> Rhythm: regular rhythm <Sreeconcepción Telloy - Last Filed: 08/30/22 21:14> GI Inspection: No distended <Sreeconcepción Tello Last Filed: 08/30/22 21:14> Palpation (GI): Soft to palpation, not firm, nontender, no guarding and not rigid <Sree Tello Last Filed: 08/30/22 21:14> Auscultation: normoactive bowel sounds <Sree Thayer Last Filed: 08/30/22 21:14> Skin General skin exam: no rashes or lesions noted and elasticity normal <Sree Thayer - Last Filed: 08/30/22 21:14> Neuro General: patient oriented x3 <Sree Tello Last Filed: 08/30/22 21:14> Cranial nerves: Yes CN's II-XII intact bilaterally, Yes Equal, round and reactive pupils present and Yes Bilaterally intact EOM present <Sree Telloy - Last Filed: 08/30/22 21:14> Cognition (Neuro): normal cognition <Sree Thayer - Last Filed: 08/30/22 21:14> Extrem Other: Moving all extremities well without any obvious deformities <Sere Thayer Last Filed: 08/30/22 21:14> Course Course Course Narrative: RME: 47 yold female presents to the ED for fever, cough, chills, and fatigue. patient states history of pneumonia in the past. Recent travel from [facility]. SARS and chest xray ordered <MARY Palomino - Last Filed: 08/31/22 12:27> Medications Administered Discontinued Medications Generic Name Dose Route Start Last Admin Trade Name Freq PRN Reason Stop Dose Admin Azithromycin 500 mg 08/30/22 20:33 08/30/22 20:41 Azithromycin 500 Mg Tablet PO 08/30/22 20:34 500 mg ONCE ONE Administration <MARY Palomino - Last Filed: 08/31/22 12:27> Medications Administered Discontinued Medications Generic Name Dose Route Start Last Admin Trade Name Freq PRN Reason Stop Dose Admin Azithromycin 500 mg 08/30/22 20:33 08/30/22 20:41 Azithromycin 500 Mg Tablet PO 08/30/22 20:34 500 mg ONCE ONE Administration <Sree Thayer - Last Filed: 08/30/22 21:14> Medical Decision Making Medical Decision Making MDM Narrative: Referral presents for evaluation of a viral-like symptoms. She was negative for influenza, COVID. Chest x-ray shows likely bronchitis. Given her diabetes and HIV status length is appropriate she with azithromycin. She will follow up with PCP, vital signs remain stable. No evidence of respiratory distress or pneumonia <Sree Thayer - Last Filed: 08/30/22 21:14> Differential Diagnosis Bronchitis Pneumonia Upper respiratory infection Viral syndrome Sinusitis <Sree Thayer - Last Filed: 08/30/22 21:14> Lab Data Labs: Lab Results 08/30/22 Range/Units 17:03 Influenza Type A (PCR) NEGATIVE (Negative) Influenza Type B (PCR) NEGATIVE (Negative) RSV RNA Qual (PCR) NEGATIVE (Negative) SARS-CoV-2 RNA (RT-PCR) NEGATIVE (Negative) <MARY Palomino - Last Filed: 08/31/22 12:27> Lab Results 08/30/22 Range/Units 17:03 Influenza Type A (PCR) NEGATIVE (Negative) Influenza Type B (PCR) NEGATIVE (Negative) RSV RNA Qual (PCR) NEGATIVE (Negative) SARS-CoV-2 RNA (RT-PCR) NEGATIVE (Negative) <Sree Thayer - Last Filed: 08/30/22 21:14> Independent Interpretation I performed an independent interpretation of an: Plain X-Ray (No focal infiltrate) <Sree Thayer - Last Filed: 08/30/22 21:14> Discharge Plan Discharge Clinical Impression: Acute bronchitis <MARY Palomino - Last Filed: 08/31/22 12:27> Patient Disposition: Home, Self-Care <MARY Palomino - Last Filed: 08/31/22 12:27> Instructions: Acute Bronchitis (ED) <MARY Palomino - Last Filed: 08/31/22 12:27> Additional Instructions: Take azithromycin starting tomorrow, 1 pill daily for the next 4 days as your 1st dose was given in the emergency department <MARY Palomino - Last Filed: 08/31/22 12:27> Prescriptions: New azithromycin 250 mg tablet 250 mg PO DAILY 4 Days Qty: 4 0RF Rx Instructions: start on day 2 of therapy fluticasone propionate 50 mcg/actuation spray,suspension 1 spray intranasal DAILY Qty: 16 0RF Rx Instructions: administer into each nostril No Action lidocaine [Lidoderm] 5 % adhesive patch,medicated 1 patch topical DAILY MDD remove after 12 hours PRN (Reason: pain) Qty: 30 0RF Rx Instructions: leave on most painful area for up to 12 hrs naproxen 500 mg tablet 500 mg PO BID PRN (Reason: pain) 10 Days Qty: 20 0RF cyclobenzaprine 5 mg tablet 5 mg PO Q8H PRN (Reason: pain (scale score 7-10)) 5 Days Qty: 14 0RF hydrocodone-acetaminophen 5-325 mg tablet 1 tab PO Q6H PRN (Reason: pain) Qty: 3 0RF gabapentin 100 mg capsule 1 cap PO BID fluticasone propionate 50 mcg/actuation spray,suspension 1 spray intranasal DAILY loratadine 10 mg tablet 1 tab PO DAILY escitalopram oxalate [Lexapro] 10 mg tablet 1 tab PO BID Triumeq 600-50-300 mg tablet 1 tab PO DAILY albuterol sulfate [ProAir HFA] 90 mcg/actuation HFA aerosol inhaler 2 puff inhalation Q4-6H PRN (Reason: Wheezing) Qty: 8.5 0RF multivitamin [One Daily Multivitamin] Tablet 1 tab PO DAILY metformin 500 mg tablet extended release 24 hr 1,000 mg PO Q12H hydrocortisone [Proctosol HC] 2.5 % cream with perineal applicator 1 appl OR BID Qty: 30 6RF glipizide 10 mg tablet extended release 24hr 10 mg PO QAM budesonide-formoterol [Symbicort] 160-4.5 mcg/actuation HFA aerosol inhaler 2 puff PO BID Qty: 10.2 11RF albuterol sulfate [Ventolin HFA] 90 mcg/actuation HFA aerosol inhaler 2 puff inhalation QID PRN (Reason: shortness of breath or wheezing) 30 Days Qty: 18 11RF diclofenac sodium 1 % gel 2 g topical BID Trelegy Ellipta 200-62.5-25 mcg blister with device 1 inh inhalation DAILY 30 Days Qty: 60 12RF prednisone 10 mg tablet See Rx Instructions PO DAILY 10 Days Qty: 15 0RF Rx Instructions: PO daily; Take 2 tab daily x 5 days, then 1 tab x 5 days tamsulosin [Flomax] 0.4 mg capsule 0.4 mg PO DAILY Qty: 30 0RF ketorolac 10 mg tablet 10 mg PO QID PRN (Reason: pain) 5 Days Qty: 90 0RF ondansetron HCl 4 mg tablet 4 mg PO BID-TID PRN (Reason: nausea and vomiting) 14 Days Qty: 14 0RF (DME) lancets [Sure Comfort Lancets] 28 gauge misc See Rx Instructions .ROUTE BID Qty: 100 Rx Instructions: As directed sennosides [Izabel-rayray] 8.6 mg tablet 17.2 mg PO BEDTIME Qty: 60 6RF psyllium husk [Daily Fiber] 0.4 gram capsule 0.4 g PO BEDTIME 30 Days Qty: 30 6RF omeprazole 40 mg capsule,delayed release(DR/EC) 40 mg PO DAILY 30 Days Qty: 30 6RF famotidine [Pepcid] 40 mg tablet 40 mg PO BEDTIME 30 Days Qty: 30 6RF simethicone [Gas Relief (simethicone)] 180 mg capsule 180 mg PO TIDWMEAL 30 Days Qty: 90 6RF <MARY Palomino - Last Filed: 08/31/22 12:27> Interventions: ED Discharge Assessment Last Done: 08/30/22 21:26 <MARY Palomino - Last Filed: 08/31/22 12:27> Discharge Date/Time: 08/30/22 21:26 <MARY Palomino - Last Filed: 08/31/22 12:27>
[2022-08-30 17:59] LABS: Influenza A PCR NEGATIVE (Negative); Influenza B PCR NEGATIVE (Negative); Resp Syncy Virus RNA Qual PCR NEGATIVE (Negative); SARS COV2 PCR INHOUSE NEGATIVE (Negative)
[2022-08-30] MEDS: Azithromycin 500 MG TABLET PO (20:41)
== END 2022-08-30 21:26 | disposition home or self-care (01) ==
PROVIDERS: Physician Assistant; Emergency Provider Internal Medicine; PCP General Practice
DX: J20.9 Acute bronchitis, unspecified (principal); R05.9 Cough, unspecified; R06.02 Shortness of breath; Z20.822 Contact with and (suspected) exposure to COVID-19; Z20.828 Contact with and (suspected) exposure to other viral communicable diseases
CPT/HCPCS: 0241U; 71045; 99283

== ENCOUNTER 2022-09-15 16:31 | Outpatient (REF) | payer MEDICAID, SELFPAY ==
--- NOTE | ~2022-09-15 | XR_ITS ---
EXAMINATION: XR CHEST CLINICAL INFORMATION: R06.02 - Shortness of breath COMPARISON: Chest radiographs 08/30/2022, 11/11/2021, CT abdomen 12/06/2021. TECHNIQUE: 2 views of the chest were obtained. FINDINGS: There is no lobar or segmental airspace consolidation or definite groundglass opacity. The costophrenic sulci are clear. No hyperinflation or air bronchograms or definite coarsening bronchiolar markings. The cardiopericardial silhouette is upper limits of normal similar to prior studies. The vascularity is normal. The hilar and mediastinal contours are normal. There are multilevel degenerative changes thoracic spine. XR/XR chest 2V IMPRESSION: -Cardiopericardial silhouette upper normal similar to prior studies. Normal vascularity. -No vascular congestion, infiltrate, or effusion.
== END 2022-09-15 16:32 | disposition home or self-care (01) ==
LOC: HO.XRAY 16:31
PROVIDERS: PCP General Practice; Visit Provider Hospitalist
DX: J45.909 Unspecified asthma, uncomplicated (principal); R06.02 Shortness of breath
CPT/HCPCS: 71046

== ENCOUNTER → 2022-10-05 09:24 | Outpatient (BNVA) | payer MEDICAID, SELFPAY | PROVIDERS: PCP General Practice; Visit Provider Hospitalist | DX: J45.40 Moderate persistent asthma, uncomplicated (principal); G47.33 Obstructive sleep apnea (adult) (pediatric); R06.00 Dyspnea, unspecified; K21.9 Gastro-esophageal reflux disease without esophagitis | CPT/HCPCS: 99212 ==

== ENCOUNTER 2022-10-21 09:48 | Outpatient (REF) | payer MEDICAID, SELFPAY ==
--- NOTE | ~2022-10-21 | XR_ITS ---
EXAMINATION: XR ABDOMEN WITH DECUBITUS VIEWS CLINICAL INDICATION: Constipation. COMPARISON: CT abdomen/pelvis 12/06/2021. TECHNIQUE: Supine frontal views of the abdomen, 5 images in total. FINDINGS: Limited evaluation secondary to patient body habitus. Nonobstructive bowel gas pattern. No significant stool burden. Right upper quadrant surgical clips. No acute osseous abnormalities. The included portions of the lung bases are clear. XR/XR abdomen w decubitus IMPRESSION: 1. Nonobstructive bowel gas pattern. 2. No significant stool burden.
[2022-10-21 13:36] LABS: Alanine Aminotransferase 47 U/L (0-31); Alkaline Phosphatase 80 U/L (39-117); Aspartate Amino Transferase 32 U/L (5-31); Bilirubin Direct 0.1 mg/dL (0.0-0.5); Bilirubin Total 0.4 mg/dL (0.0-1.0); Gamma Glutamyl Transpeptidase 33 U/L (7-33); Total Protein 7.7 g/dL (6.5-8.0)
[2022-10-21 13:44] LABS: Ferritin 152 ng/mL (10-250); TSH reflex Free T4 1.14 uIU/mL (0.32-4.0)
[2022-10-26 13:18] LABS: Alpha Fetoprotein 1.3 ng/mL
== END 2022-10-21 09:49 | disposition home or self-care (01) ==
LOC: HO.LAB 09:48
PROVIDERS: PCP General Practice; Referring Provider General Practice; Visit Provider Nurse Practitioner
DX: K22.10 Ulcer of esophagus without bleeding (principal); K58.2 Mixed irritable bowel syndrome; K21.9 Gastro-esophageal reflux disease without esophagitis; K64.9 Unspecified hemorrhoids; R14.0 Abdominal distension (gaseous); R79.89 Other specified abnormal findings of blood chemistry
CPT/HCPCS: 36415; 74021; 80076; 82105; 82728; 82977; 84443; 99212

== ENCOUNTER → 2022-11-09 12:50 | Outpatient (BNVA) | payer MEDICAID, SELFPAY | PROVIDERS: PCP General Practice; Visit Provider Internal Medicine Cardiovascular Disease | DX: R07.9 Chest pain, unspecified (principal); J44.9 Chronic obstructive pulmonary disease, unspecified; E11.9 Type 2 diabetes mellitus without complications; B20 Human immunodeficiency virus [HIV] disease; Z98.890 Other specified postprocedural states; Z79.84 Long term (current) use of oral hypoglycemic drugs | CPT/HCPCS: 99212 ==

== ENCOUNTER 2022-11-10 16:19 | Emergency (ER) | payer MEDICAID, SELFPAY ==
--- NOTE | ~2022-11-10 | XR_ITS ---
EXAMINATION: XR KNEE, RIGHT CLINICAL INFORMATION: Pain. COMPARISON: Right knee 10/07/2020 TECHNIQUE: Two views of the right knee. FINDINGS: There is no fracture. No dislocation. No focal bone lesion. No joint effusion. Mild joint narrowing of the medial femoral tibial joint with small marginal bone spurs of both the femur and tibia. Minimal bone spur of the patella the patellofemoral joint. Small enthesophyte at the insertion of quadriceps tendon. Compared to prior study of 10/07/2020 no substantial change. XR/XR knee RT 2V IMPRESSION: 1. No acute abnormality. 2. Mild degenerative joint disease of the knee.
[2022-11-10 17:08] VITALS: BP 116/72; BP 135/80; PULSE 72; PULSE 74; RESP 16; TEMP 36.8; O2SAT 98; O2SAT 99; BMI 53.1
--- NOTE | 2022-11-10 17:11 | ED.GENADULT ---
HPI - General Adult General Chief complaint: Extremity Injury, Lower Stated complaint: KNEE PAIN Time Seen by Provider: 11/10/22 17:51 Source: patient Mode of arrival: EMS Limitations: language barrier (Syriac-speaking director of medical staff services utilized) History of Present Illness HPI narrative: Patient is a 47-year-old female who presents emergency department via EMS for evaluation of acute on chronic right knee pain. She reports persistent pain secondary to arthritis. She had an appointment with her primary care provider today, but she states she was unable to get to the office due to the amount of pain that she was having. She reports a mechanical fall due to pain/weakness in any approximately 1 week ago. She fell with her knee landing on the stairs. She is prescribed naproxen at home but this has not been helping her pain. She uses a cane for ambulation. She states she has seen orthopedics in the past and had advised the usage of knee braces which she states ?they never gave me?. She denies any numbness or tingling to the extremity. There is no redness, warmth, rashes or lesions. Related Data Home Medications Medication Instructions Recorded Confirmed abacavir 600 mg-dolutegravir 50 1 tab PO DAILY 02/25/21 11/09/22 mg-lamivudine 300 mg tablet (Triumeq) metformin 500 mg tablet,extended 1,000 mg PO Q12H 05/05/21 11/09/22 release 24 hr multivitamin (One Daily 1 tab PO DAILY 05/05/21 11/09/22 Multivitamin tablet) glipizide 10 mg tablet, extended 10 mg PO QAM 08/14/21 11/09/22 release 24 hr diclofenac sodium 1 % topical gel 2 g topical BID 05/05/22 11/09/22 lancets 28 gauge (Sure Comfort #100 ea 06/04/22 11/09/22 Lancets) linaclotide 145 mcg capsule 145 mcg PO QAM 10/21/22 11/09/22 (Linzess) escitalopram oxalate 10 mg tablet 10 mg PO BID 11/09/22 11/09/22 (Lexapro) gabapentin 100 mg capsule 100 mg PO BID 11/09/22 11/09/22 loratadine 10 mg tablet 10 mg PO DAILY 11/09/22 11/09/22 Previous Rx's Medication Instructions Recorded cyclobenzaprine 5 mg tablet 5 mg PO Q8H PRN pain (scale score 01/27/21 7-10) 5 days #14 tabs hydrocodone 5 mg-acetaminophen 325 1 tab PO Q6H PRN pain #3 tabs 01/27/21 mg tablet lidocaine 5 % topical patch 1 patch topical DAILY PRN pain #30 01/27/21 (Lidoderm) ea naproxen 500 mg tablet 500 mg PO BID PRN pain 10 days #20 01/27/21 tabs hydrocortisone 2.5 % topical cream 1 appl MO BID hemorrhoids #30 grams 05/05/21 with perineal applicator (Proctosol HC) ketorolac 10 mg tablet 10 mg PO QID PRN pain 5 days #90 12/12/21 tabs ondansetron HCl 4 mg tablet 4 mg PO BID-TID PRN nausea and 12/12/21 vomiting 14 days #14 tabs tamsulosin 0.4 mg capsule (Flomax) 0.4 mg PO DAILY #30 caps 12/12/21 albuterol sulfate 90 mcg/actuation 2 puff inhalation QID PRN 04/24/22 aerosol inhaler (Ventolin HFA) shortness of breath or wheezing 30 days #18 grams budesonide-formoterol HFA 160 2 puff PO BID #10.2 grams 04/24/22 mcg-4.5 mcg/actuation aerosol inhaler (Symbicort) famotidine 40 mg tablet (Pepcid) 40 mg PO BEDTIME 30 days #30 tabs 06/25/22 omeprazole 40 mg capsule,delayed 40 mg PO DAILY 30 days #30 caps 06/25/22 release psyllium husk 0.4 gram capsule 0.4 g PO BEDTIME 30 days #30 caps 06/25/22 (Daily Fiber) sennosides 8.6 mg tablet (Izabel-rayray) 17.2 mg PO BEDTIME constipation 06/25/22 #60 tabs simethicone 180 mg capsule (Gas 180 mg PO TIDWMEAL 06/25/22 Relief (simethicone)) Gastrointestinal Spasms Or Cramping 30 days #90 caps fluticasone propionate 50 1 spray intranasal DAILY #16 grams 08/30/22 mcg/actuation nasal spray,suspension tiotropium bromide 2.5 2 puff inhalation DAILY 30 days #1 10/05/22 mcg/actuation mist for inhalation ea (Spiriva Respimat) linaclotide 72 mcg capsule 72 mcg PO QAM #30 caps 10/21/22 (Linzess) oxycodone 5 mg tablet 5 mg PO Q8H PRN pain #7 tabs 11/10/22 Allergies Allergy/AdvReac Type Severity Reaction Status Date / Time No Known Allergies Allergy Verified 11/10/22 17:11 [No Known Allergies*] Review of Systems Review of Systems: Yes all other systems are reviewed and are negative [facility] Past Medical History Attestation statement: The following information was validated with the patient. Source: old records reviewed Medical History Abnormal chest x-ray Asthma Asthma At high risk for breast cancer Chest pain Chest pain Chest pain Colon cancer screening Dyspnea External hemorrhoids with complication GERD (gastroesophageal reflux disease) Internal hemorrhoids with complication Irritable bowel syndrome with both constipation and diarrhea Morbid obesity MARLON (obstructive sleep apnea) Surgical History H/O colonoscopy History of cardiac cath History of cholecystectomy History of esophagogastroduodenoscopy (EGD) Family History Family History Mother Heart attack Pacemaker Other Asthma History of cancer of uterus History of liver cancer History of ovarian cancer History of pancreatic cancer Social History Social History Alcohol intake: never Patient Tobacco Use Status: Former Tobacco user Quit Date: 2014 Years Smoked: 10 +/- Advance Directives: No Advance Directives Information Provided: No Physical Exam ED Vital Signs: Vital Signs - 24 hr 11/10/22 17:08 11/10/22 19:06 Temperature 98.2 F 98.2 F Pulse Rate 74 67 Respiratory Rate 16 20 Blood Pressure 135/80 118/66 Pulse Oximetry 98 98 Oxygen Delivery Method Room Air Room Air BMI result Body Mass Index 53.1 Const Other: Appearance: Alert.?Oriented to person, place and time. No acute distress.?Normal affect.? CVS: Heart sounds normal. Normal heart rate and rhythm.? Pulses normal.?? Respiratory: No respiratory distress.? Lung sounds clear to auscultation bilaterally?? Abdomen: Soft and non-tender. .?? Skin: Skin warm and dry.? Normal skin color.? Extremities: No lower extremity edema.? No calf ttp?2+ DP/PT pulse bilaterally. Right knee with no erythema, warmth, rash, lesion or. No laxity upon examination. Anterior drawer test negative, posterior drawer test negative. Negative Jordin sign. Neuro: Moves all extremities spontaneously. Sensation intact bilaterally. CN II-XII intact. No focal neuro deficits. Ambulates with antalgic gait in use of walker for very short distance. Primarily wheelchair transport Course Course Course Narrative: RME 42 pain presents for evaluation of right knee pain. She reports that she has the pain for long time related to arthritis and diabetic neuropathy. The patient had a doctor's appointment today for her right knee pain and missed the appointment. She states that she could not get out of bed to use the bathroom so her doctor told her to come here Reevaluation(s) Reevaluation #1: XR imaging reveals no acute fracture dislocation, examination is not consistent with septic arthritis at this time. I spoke with patient and she expressed concerns about returning home due to her immobility with exacerbated pain. She states that she lives alone in a 2 floor home. Expresses concerns about being able to get to the bathroom independently. I offered patient to have evaluation with physical therapy/case management for determination of whether physical therapy/short-term rehab would be appropriate for her. However, she declines remaining in the emergency department for this evaluation at this time. She was requesting some pain medication to go home with so that she may follow-up with her primary care provider. Patient to receive a single dose of oxycodone while in the emergency department, her son is going to come and pick her up. Discussed with patient outpatient follow-up with PCP/Ortho. She verbalizes understanding. Reviewed worrisome signs and symptoms that would warrant re-evaluation in the emergency department. All questions answered. She is stable for discharge. Time: 19:00 Medications Administered Discontinued Medications Generic Name Dose Route Start Last Admin Trade Name Freq PRN Reason Stop Dose Admin Oxycodone HCl 5 mg 11/10/22 19:06 11/10/22 19:29 Oxycodone Hcl Immed Release 5 Mg Tablet PO 11/10/22 19:07 5 mg ONCE ONE Administration Medical Decision Making Medical Decision Making MDM Narrative: Patient is a 47-year-old female with acute on chronic right knee pain presenting to emergency department for evaluation. Mechanical fall due to pain approximately 1 week ago. Plan; XR imaging of the right knee to exclude fracture dislocation, there is no obvious effusion upon examination. Wells 0, and physical examination not consistent with DVT at this time. Nontoxic in appearance, afebrile, no joint erythema or warmth, not consistent with septic arthritis Extremity is neurovascularly intact distally. Differential Diagnosis Differential Diagnoses: The differential diagnosis associated with the presentation includes (As noted above) Admission/Observation Consideration of admission/observation: Escalation of care including admission/observation considered I discussed with patient observation/PT case management evaluation as noted in course Independent Interpretation I performed an independent interpretation of an: Plain X-Ray (I have personally interpreted x-ray imaging and agree with radiologist impression) Radiology Impression Discussion of test interpretation with radiology: I have reviewed the radiologist's reading. Radiologist Impression: XR/XR knee RT 2V IMPRESSION: 1.? No acute abnormality. 2.? Mild degenerative joint disease of the knee. Prescription Management I considered prescription management with: Pain Medication Discharge Plan Discharge Clinical Impression: Knee osteoarthritis Patient Disposition: Home, Self-Care Instructions: Osteoarthritis (ED) Additional Instructions: Your x-ray does not show any fracture dislocation after your injury. There is evidence of arthritis on your x-ray as discussed. I have sent a short course of pain medication to your pharmacy, oxycodone, this is a narcotic medication it may be addictive and can make you drowsy. Do not drive, drink alcohol, or operate machinery while taking this medication. as discussed you will need to follow-up with your primary care provider tomorrow for further evaluation. You should also consider re-evaluation with Orthopedics. Prescriptions: New oxycodone 5 mg tablet 5 mg PO Q8H PRN (Reason: pain) Qty: 7 0RF Rx Instructions: Partial Fill upon patient request. No Action lidocaine [Lidoderm] 5 % adhesive patch,medicated 1 patch topical DAILY MDD remove after 12 hours PRN (Reason: pain) Qty: 30 0RF Rx Instructions: leave on most painful area for up to 12 hrs naproxen 500 mg tablet 500 mg PO BID PRN (Reason: pain) 10 Days Qty: 20 0RF cyclobenzaprine 5 mg tablet 5 mg PO Q8H PRN (Reason: pain (scale score 7-10)) 5 Days Qty: 14 0RF hydrocodone-acetaminophen 5-325 mg tablet 1 tab PO Q6H PRN (Reason: pain) Qty: 3 0RF Triumeq 600-50-300 mg tablet 1 tab PO DAILY escitalopram oxalate [Lexapro] 10 mg tablet 10 mg PO BID gabapentin 100 mg capsule 100 mg PO BID loratadine 10 mg tablet 10 mg PO DAILY fluticasone propionate 50 mcg/actuation spray,suspension 1 spray intranasal DAILY Qty: 16 0RF Rx Instructions: administer into each nostril multivitamin [One Daily Multivitamin] Tablet 1 tab PO DAILY metformin 500 mg tablet extended release 24 hr 1,000 mg PO Q12H hydrocortisone [Proctosol HC] 2.5 % cream with perineal applicator 1 appl MO BID Qty: 30 6RF glipizide 10 mg tablet extended release 24hr 10 mg PO QAM budesonide-formoterol [Symbicort] 160-4.5 mcg/actuation HFA aerosol inhaler 2 puff PO BID Qty: 10.2 11RF albuterol sulfate [Ventolin HFA] 90 mcg/actuation HFA aerosol inhaler 2 puff inhalation QID PRN (Reason: shortness of breath or wheezing) 30 Days Qty: 18 11RF diclofenac sodium 1 % gel 2 g topical BID tamsulosin [Flomax] 0.4 mg capsule 0.4 mg PO DAILY Qty: 30 0RF ketorolac 10 mg tablet 10 mg PO QID PRN (Reason: pain) 5 Days Qty: 90 0RF ondansetron HCl 4 mg tablet 4 mg PO BID-TID PRN (Reason: nausea and vomiting) 14 Days Qty: 14 0RF (DME) lancets [Sure Comfort Lancets] 28 gauge misc See Rx Instructions .ROUTE BID Qty: 100 Rx Instructions: As directed sennosides [Izabel-rayray] 8.6 mg tablet 17.2 mg PO BEDTIME Qty: 60 6RF Hold Instructions: Doctor's Order psyllium husk [Daily Fiber] 0.4 gram capsule 0.4 g PO BEDTIME 30 Days Qty: 30 6RF omeprazole 40 mg capsule,delayed release(DR/EC) 40 mg PO DAILY 30 Days Qty: 30 6RF famotidine [Pepcid] 40 mg tablet 40 mg PO BEDTIME 30 Days Qty: 30 6RF simethicone [Gas Relief (simethicone)] 180 mg capsule 180 mg PO TIDWMEAL 30 Days Qty: 90 6RF Spiriva Respimat 2.5 mcg/actuation mist 2 puff inhalation DAILY 30 Days Qty: 1 11RF Linzess 145 mcg capsule 145 mcg PO QAM Linzess 72 mcg capsule 72 mcg PO QAM Qty: 30 3RF Referrals: Echo Rain MD [Primary Care Provider] - Interventions: ED Discharge Assessment Last Done: 11/10/22 19:46 Discharge Date/Time: 11/10/22 19:51
[2022-11-10 19:06] VITALS: BP 118/66; PULSE 67; RESP 20; TEMP 36.8; O2SAT 98
[2022-11-10] MEDS: oxyCODONE HCl Immed Release 5 MG TABLET PO (19:29)
== END 2022-11-10 19:51 | disposition home or self-care (01) ==
PROVIDERS: Emergency Provider Emergency Medicine; PCP General Practice
DX: M17.11 Unilateral primary osteoarthritis, right knee (principal); Z79.899 Other long term (current) drug therapy; Z87.891 Personal history of nicotine dependence
CPT/HCPCS: 73560; 99283; 99284

== ENCOUNTER 2023-02-08 09:28 | Outpatient (AMB) | payer MEDICAID, SELFPAY ==
[2023-02-08 09:45] VITALS: PULSE 78; O2SAT 94; BMI 52.9
--- NOTE | 2023-02-08 09:45 | A.OFFVIS_ITS ---
Intake Vital Signs 02/08/23 09:45 Height 5 ft 5 in Weight 318 lb BMI 52.9 Pulse 78 Pulse Source Pulse Oximeter Pulse Oximetry (%) 94 Oxygen Delivery Method Room Air Intake Visit Reasons: Asthma End Lathe Operator Required: No Allergies No Known Allergies [No Known Allergies*] Allergy (Verified 02/08/23 09:46) HPI HPI Comments History of Present Illness Details The patient is a 47-year-old woman with a known history of asthma, HIV her antiretroviral therapy and obstructive sleep apnea. She has been describing worsening daytime drowsiness in the last several months. She states she was diagnosed with obstructive sleep apnea couple years ago and she has been on CPAP therapy ever since. However, she became sick requiring hospitalizations and other medical issues that kept her from using machine. Therefore the patient could not get supplies and therefore was not able to continue using the CPAP. She has been struggling to get back to using the PAP therapy since she was very helpful in beneficial for her. We did review her previous sleep study demonstrating moderate degree of sleep apnea with an AHI of 24 anything which worse during REM sleep. The patient responded well to CPAP therapy. In the meantime she is also describing increasing shortness of breath. She has had e pisodes of recurrent pneumonias. Currently she is immunocompetent as her HIV is being treated effectively. She did undergo a chest x-ray demonstrating increased haziness of the lungs suggesting some degree of pneumonitis. She does complain of shortness of breath in addition to some pleuritic discomfort of her chest area in primarily on the right side. She also complains of lower extremity edema swelling. 05/27/2019 the patient is here for pulmo nary follow-up visit. Overall she is doing well. She continues uses Symbicort although she is using it as needed. I have emphasized that this is a maintenance medication as she should use it twice a day to see the best effect. In the meantime will send her rescue inhaler for her to have to use as needed. She still complains of dyspnea on exertion in addition to chest heaviness. It does wax and wane. The meantime she has been using the CPAP. The CPAP therapy continues to be affecting beneficial. She has had hard time tolerating the elevated pressures because of air leaks. When she does use it her average pressure is around 14.5 in she does maintain an AHI of 1.3. Therefore, I will have her pressure is decreased down to 8-12 hoping that she can not tolerated better. She does need a chinstrap or fullface mask. We did review her blood work in addition to her chest x-ray. The x-ray was clear. Her blood work demonstrated allergies to cockroaches. Her IgG levels are significantly elevated. Therefore, does should be retested if there is still elevated she would warrant a hematological consultation. 07/31/2020 the patient is here for pulmo nary follow-up visit. The patient is upset because she had her CPAP taking away. It took her a while to get used to it partly because of the language barrier and then as far as not following up to have the machine adjusted. Subsequently she was evaluated in May and she start using it more regularly. She get to the point that she was using it every night was getting a significant amount of benefit from it. However, the company picked up the machine since insurance was no longer pain 4. Now he gets any significant daytime drowsiness and some significant snoring. Her [place] score is elevated 12/24. The patient needs to restar her APAP therapy at this time again. Will have to set her up with another home sleep study in order to get read qualify her to reactivate her with 1 of the [employer] companies to provide her with the machine. Will do that because the patient does have increased risk factors and she is significantly symptomatic. In the meantime she fell down the stairs hurting her right side and also her left arm. She is having some pleuritic discomfort primarily on the right side. She went to the ER weight is 7 hours and had x-rays. I do not see that she had an x-ray however. So therefore have her go for chest x-ray with rib series looking for any rib fractures. In the meantime I did have an incentive spirometer in the office we educated on how to use it and will provide her the incentive spirometer to take home in order for her to work on her breathing to avoid atelectasis and subsequently avoid complications of pneumonia. The patient is to come back after her sleep study to review and then reorder CPAP. 06/03/2021 the patient is here for pulmonary follow-up visit. She continues to have significant daytime drowsiness. Her [place] score still elevated 12/24. She is actually falling asleep waiting for me in the office. We did review her recent sleep study which demonstrated mild sleep apnea and significant hypoxia. This is likely a suboptimal study as she has likely more moderate to severe MARLON. The patient also has increased cardiovascular risk factors. Therefore I will request a CPAP therapy MANNY from a local DME company. The patient also has been complaining of chest discomfort. Some of it is in the reproducible but she had an abnormal EKG. The patient will benefit from a full cardiac evaluation specially with her cardiovascular risk factors. From a respiratory status she is actually doing well on the current respiratory medications. 04/24/2022 the patient is here for a pulmonary follow-up visit. She continues to have daytime drowsiness. Her [place] score still elevated 04/16. We had requested a CPAP to be provided by regional DME company. However the patient has not received her PAP machine. We did call the DME company and they stated that they would not be able to provide 1 as a restart. The prescription will need to be sent to another DME company. Therefore will go ahead and request a different DME to provide her with the CPAP machine at this time. The patient is anxious to started. Specially since she was doing initially well prior to the machine being taken away initially she had some difficulties with PAP therapy then once it was adjusted a few times she finally start tolerating it much better. She continues with respiratory therapy. She did have a CT scan of the abdomen sometime over the summer of 2021 demonstrating clear bases. Her shortness of breath also has improved. 07/31/2022 the patient is here for a pulm onary follow-up visit. The patient is still struggling. She is having increasing shortness of breath and chest discomfort. She called in for sick visit. The patient had a full cardiac workup and was negative. She has a hard time going up a flight of stairs. She has been using her inhaler with no significant improvement. She did take a course of prednisone before and that helped her a little bit. The patient also has been having lower extremity edema. She was told to go to the urgent care to get an ultrasound to rule out DVT. She was going to do that after this visit. Therefore, will have her get some blood work to check a D-dimer just assess her risk for clotting and risk of PE. We did go for brief walking oximetry and she was tachycardic, but, her pulse ox was stable. She does have diabetes and she has to be careful with prednisone. I will give her small dose of prednisone that she can take if she is not better. Will try to optimize respiratory therapy by switching her over to Trelegy as she is taking multiple inhalers and is not clear which 1 she should be taking. 10/05/2022 the patient is here for [facility]. The patient recently was sick with worsening respiratory symptoms prior a cough which is productive in nature. She called the office and the patient did received some antibiotics and prednisone. She does feel better at this time although she still not her baseline. We had done blood work as well demonstrating a normal D-dimer ruling out the possibility of thromboembolic disease. The patient also has been having difficulties with her sleep. She still having significant daytime drowsiness. Her [place] score is elevated 04/16. We had called the [employer] during the last visit because she had not received her CPAP machine. Apparently the patient had a CPAP before and was not given instructions on how to effectively use it so therefore that she could not tolerated. When she did follow-up with us we did adjust the CPAP and she did a lot better she tolerated much better. But, at that point was too late the insurance company was no longer pain 4 in was taken away. Now the patient is usually waiting for it to start therapy. She had a repeat sleep study demonstrating the sleep apnea and I am hopeful that she can get started on CPAP therapy soon. The patient is currently working with the [employer], [place]. 02/08/2023 the patient is here for [facility] follow visit. She continues to have difficulty with her sleep. She does have issues where she wakes up short of breath and disoriented. She is missing her CPAP. We did call the [facility] again day will try to get her situated with CPAP this week or next. If she is not set up with CPAP she will call me and let me know so we can have an alternative plan. The patient though benefit from her CPAP therapy. The patient also has been responding well to the addition of the Spiriva. She has been using the inhalers with good effect. She still complaining of significant joint pains and musculoskeletal issues that keep her from exercising. She has a hard time going up and down the stairs. This limits her activity and she gets down about that overall. Hopefully I will answer we can get her on CPAP she starts feeling more energetic during the daytime. In addition to that she will try melatonin in conjunction with gabapentin to see if this helps her sleep better at nighttime. The patient is aware that when she gets the machine she needs to use it every night for 4 hours at least. Otherwise the machine will be taken away. [facility] Medical History Abnormal chest x-ray Asthma Asthma At high risk for breast cancer Chest pain Chest pain Chest pain Colon cancer screening Dyspnea External hemorrhoids with complication GERD (gastroesophageal reflux disease) Internal hemorrhoids with complication Irritable bowel syndrome with both constipation and diarrhea Morbid obesity MARLON (obstructive sleep apnea) Surgical History H/O colonoscopy History of cardiac cath History of cholecystectomy History of esophagogastroduodenoscopy (EGD) Family History Mother Heart attack Pacemaker Other Asthma History of cancer of uterus History of liver cancer History of ovarian cancer History of pancreatic cancer Social History Alcohol intake: never Patient Tobacco Use Status: Former Tobacco user Quit Date: 2014 Years Smoked: 10 +/- Review of Systems Const Reports daytime sleepiness, Reports fatigue, Denies night sweats, Reports snoring and Reports stops breathing during sleep ENT Denies change in voice, Denies lip swelling, Denies mouth pain, Reports nasal congestion, Reports nasal discharge and Denies tongue swelling Card Denies chest pain, Reports leg edema and Reports dyspnea on exertion Resp Denies cough, Reports dyspnea on exertion and Reports snoring GI Denies abdominal pain Musc Denies no additional complaints Neuro Denies Neuro-related abnormal movements Psych Denies no additional complaints Endo Reports fatigue Christofer/Lymph Denies easy bleeding and Denies lymphadenopathy Aller/Immun Denies lip swelling and Denies tongue swelling Physical Exam Vital Signs: Last Vital Signs Pulse 78 02/08/23 09:45 Pulse Ox 94 02/08/23 09:45 Oxygen Delivery Method Room Air 02/08/23 09:45 BMI result Body Mass Index 52.9 Const General: alert HEENT General nose exam: Abnormal external nose present and Nasal discharge present Neck Neck: Yes normal visual inspection, Yes full ROM and Yes no lymphadenopathy Chest Chest palpation & inspection: normal inspection of the chest and localized rib tenderness with anteroposterior compression Resp Auscultation: diminished lung sounds Cardio Rate: regular rate Rhythm: regular rhythm Heart sounds: S1 normal heart sound present and S2 normal heart sound present GI Palpation (GI): Soft to palpation and nontender Auscultation: normal bowel sounds Skin General skin exam: rashes and/or lesions noted Assessment & Plan Assessment & Plan (1) MARLON (obstructive sleep apnea): Code(s): G47.33 - Obstructive sleep apnea (adult) (pediatric) (2) Dyspnea: Comment: Likely multifactorial. Code(s): R06.00 - Dyspnea, unspecified Qualifiers: Dyspnea type: dyspnea on exertion Qualified Code(s): R06.00 - Dyspnea, unspecified (3) Asthma: Code(s): J45.909 - Unspecified asthma, uncomplicated Qualifiers: Asthma complication type: uncomplicated Asthma persistence: persistent Asthma severity: moderate Qualified Code(s): J45.40 - Moderate persistent asthma, uncomplicated (4) GERD (gastroesophageal reflux disease): Code(s): K21.9 - Gastro-esophageal reflux disease without esophagitis Qualifiers: Esophagitis presence: without esophagitis Qualified Code(s): K21.9 - Gastro-esophageal reflux disease without esophagitis Plan Needs to start APAP, reached out to her [employer] company, they will set her up soon start Melatonin continue Spiriva continue Symbicort MINESH as needed F/U 4 months Medications: New melatonin 5 mg PO BEDTIME 30 days PRN 30 tabs 5RF sleep Coding Level of Care Code Est Pt Level 4 (60122) Diagnoses MRALON (obstructive sleep apnea) G47.33 Dyspnea on exertion R06.00 Dyspnea type: dyspnea on exertion Moderate persistent asthma without complication J45.40 Asthma complication type: uncomplicated Asthma persistence: persistent Asthma severity: moderate Gastroesophageal reflux disease without esophagitis K21.9 Esophagitis presence: without esophagitis Time Spent (min) 18
== END 2023-02-08 10:03 | disposition home or self-care (01) ==
PROVIDERS: PCP General Practice; Visit Provider Hospitalist
DX: G47.33 Obstructive sleep apnea (adult) (pediatric) (principal); R06.00 Dyspnea, unspecified; J45.40 Moderate persistent asthma, uncomplicated; K21.9 Gastro-esophageal reflux disease without esophagitis
CPT/HCPCS: 99214

== ENCOUNTER → 2023-02-08 09:28 | Outpatient (BNVA) | payer MEDICAID, SELFPAY | PROVIDERS: Visit Provider Hospitalist | DX: J45.40 Moderate persistent asthma, uncomplicated (principal); G47.33 Obstructive sleep apnea (adult) (pediatric); K21.9 Gastro-esophageal reflux disease without esophagitis; R06.00 Dyspnea, unspecified | CPT/HCPCS: 99212 ==

== ENCOUNTER 2023-06-21 15:56 | Outpatient (REF) | payer MEDICAID, SELFPAY ==
[2023-06-21 17:26] LABS: MANUAL DIFF FLAG NO
[2023-06-21 17:49] LABS: Basophils Absolute Auto 0.1 X10*3/uL (0.0-0.2); Basophils Percent Auto 0.5 % (0-2); Eosinophils Absolute Auto 0.2 X10*3/uL (0.0-0.4); Eosinophils Percent Auto 1.4 % (0-4); Hematocrit 36.5 % (37.0-47.0); Hemoglobin 12.2 g/dl (12.0-16.0); Imm Gran Abs Auto 0.03 X10*3/uL (0.00-0.03); Imm Gran Pct Auto 0.3 % (0.0-0.4); Lymphocytes Absolute Auto 3.1 X10*3/uL (1.2-4.9); Lymphocytes Percent Auto 27.9 % (20-40); Mean Corpuscular HGB Conc 33.4 g/dl (31.0-35.0); Mean Corpuscular Hemoglobin 27.9 pg (27.0-33.0); Mean Corpuscular Volume 83.3 fL (80.0-98.0); Mean Platelet Volume 10.6 fL (9.4-12.3); Monocytes Absolute Auto 0.4 X10*3/uL (0.1-1.2); Monocytes Percent Auto 3.9 % (2-11); Neutrophils Absolute Auto 7.3 x10*3/uL (2.0-8.3); Platelet Count 259 X10*3/uL (160-400); Red Blood Count 4.38 X10*6/uL (4.20-5.50)
[2023-06-21 17:50] LABS: Alanine Aminotransferase 33 U/L (0-31); Albumin Level 4.1 g/dL (3.5-5.0); Alkaline Phosphatase 84 U/L (39-117); Anion Gap 13 (12-20); Aspartate Amino Transferase 28 U/L (5-31); Bilirubin Total 0.3 mg/dL (0.0-1.0); Blood Urea Nitrogen 10 mg/dL (9-16); Calcium 9.7 mg/dL (8.4-10.2); Carbon Dioxide 25 mmol/L (22-29); Chloride 103 mmol/L (96-108); Estimated Glomerular Filt Rate > 60; Glucose Random 142 mg/dL (60-115); Potassium 3.9 mmol/L (3.3-5.1); Sodium 137 mmol/L (135-145); Total Protein 8.7 g/dL (6.5-8.0)
[2023-06-23 08:48] LABS: Absolute CD3 Count 2336 cells/uL (840-3060); Absolute CD4 Count 975 cells/uL (490-1740); Absolute CD8 Count 1341 cells/uL (180-1170); Absolute Lymphocytes 3145 cells/uL (850-3900); CD4 CD8 Ratio 0.73 (0.86-5.00); Percent CD3 Cells 74 % (57-85); Percent CD4 Cells 31 % (30-61); Percent CD8 Cells 43 % (12-42)
[2023-06-23 19:33] LABS: C. trachomatis RNA TMA NOT DETECTED (NOT DETECTED); Candida glabrata RNA NOT DETECTED (NOT DETECTED); Candida species RNA NOT DETECTED (NOT DETECTED); N. gonorrhoeae RNA TMA NOT DETECTED (NOT DETECTED); Trichomonas vaginalis RNA NOT DETECTED (NOT DETECTED)
[2023-06-24 14:09] LABS: HIV RNA PCR Qn Copies NOT DETECTED copies/mL (NOT DETECTED); HIV RNA PCR Qn Log Copies NOT DETECTED (NOT DETECTED)
[2023-06-25 05:29] LABS: HPV mRNA E6/E7 rflx Not Detected (Not Detected)
== END 2023-06-21 15:57 | disposition home or self-care (01) ==
LOC: HO.HHCL 15:56
PROVIDERS: General Practice; Visit Provider Internal Medicine
DX: Z01.419 Encounter for gynecological examination (general) (routine) without abnormal findings (principal); Z21 Asymptomatic human immunodeficiency virus [HIV] infection status
CPT/HCPCS: 36415; 80053; 81513; 85025; 86359; 86360; 87481; 87491; 87536; 87591; 87624; 87661; 88142

== ENCOUNTER 2023-07-02 09:05 | Outpatient (REF) | payer MEDICAID, SELFPAY ==
--- NOTE | ~2023-07-02 | US_ITS ---
EXAMINATION: US COMPLETE ABDOMEN WITH LIVER ELASTOGRAPHY CLINICAL INFORMATION: Abnormal findings of blood chemistry. COMPARISON: None available. TECHNIQUE: Real-time imaging of the abdominal viscera. Noninvasive ultrasound liver fibrosis assessment is performed using Gilson ElastPQ point quantification shear wave elastography (2D-SWE) with a C5-2 MHz transducer. Multiple elastography samples are obtained. FINDINGS: PANCREAS: Normal. The visualized pancreatic head and body are normal in appearance. The remainder of the pancreas is obscured from visualization by the overlying bowel gas. ABDOMINAL AORTA: The proximal, middle, and distal aortic segments are normal in caliber. INFERIOR VENA CAVA: Visualized portions are normal. LIVER: Normal. The liver demonstrates normal size, contour and echogenicity. No focal lesion or intrahepatic biliary duct dilatation. The right lobe measures 21.1 cm in length. The left lobe measures 13.7 cm in length. Portal flow is towards the liver (hepatopetal). Shear wave liver elastography median stiffness is 2.21 m/s (reference: normal median stiffness is 1.3 m/s or less). IQR/median stiffness to assess sampling precision is 0.06 (reference: good quality data set is IQR/median stiffness of 0.15 or less). GALLBLADDER: Normal. The gallbladder is physiologically distended without evidence of stones, sludge, polyps, wall thickening or pericholecystic fluid. COMMON BILE DUCT: Normal in caliber measuring 0.5 cm in diameter. RIGHT KIDNEY: Normal. No hydronephrosis. No renal calculi or focal parenchymal lesions. The kidney measures 12.0 cm in maximum dimension. LEFT KIDNEY: Normal. No hydronephrosis. No renal calculi or focal parenchymal lesions. The kidney measures 11.6 cm in maximum dimension. SPLEEN: Normal. The spleen measures 11.2 cm in maximum dimension. FREE FLUID: None. US/US abdomen comp w elastography IMPRESSION: 1. There is generalized increase in hepatic echotexture, consistent with fatty infiltration or hepatocellular disease. Please correlate clinically. No focal hepatic mass or intrahepatic biliary dilatation is seen. 2. There is hepatomegaly. 3. Liver elastography: Measuremensts are consistent with compensated advanced chronic liver disease. REFERENCE: Society of Radiologists in Ultrasound Liver Stiffness Thresholds (2020): LIVER STIFFNESS THRESHOLDS: *Liver Stiffness equal or less than 1.3 m/s: High probability of being normal. *Liver Stiffness less than 1.7 m/s: In the absence of other known clinical signs, rules out compensated advanced chronic liver disease. *Liver Stiffness 1.7-2.1 m/s: Suggestive of compensated advanced chronic liver disease but need further test for confirmation. *Liver Stiffness over 2.1 m/s: Rules in compensated advanced chronic liver disease. *Liver Stiffness over 2.4 m/s: Suggestive of clinically significant portal hypertension. QUALITY OF DATA SET: *IQR/Median value equal or less than 0.15 implies a quality data set. *IQR/Median value over 0.15 implies a poor quality data set. SIGNIFICANT CHANGE FROM PRIOR EXAM: Significant change if liver stiffness measurement is 10% or greater from prior exam. OTHER CONSIDERATIONS: The stage of liver fibrosis may be overestimated in the setting of acute hepatitis, liver inflammation, elevated liver function tests, hepatic vascular congestion, obstructive cholestasis, non-fasting state, and infiltrative diseases such as amyloidosis and lymphoma. In some patients with NAFLD, the liver stiffness thresholds for compensated advanced chronic liver disease may be lower. In causes other than viral hepatitis and NAFLD, liver stiffness thresholds are not well established.
== END 2023-07-02 09:06 | disposition home or self-care (01) ==
LOC: HO.US 09:05
PROVIDERS: PCP General Practice; Visit Provider Nurse Practitioner
DX: R79.89 Other specified abnormal findings of blood chemistry (principal)
CPT/HCPCS: 76700; 76981

== ENCOUNTER 2023-09-28 16:23 | Outpatient (REF) | payer MEDICAID, SELFPAY ==
--- NOTE | ~2023-09-28 | US_ITS ---
EXAMINATION: US VENOUS ULTRASOUND WITH DOPPLER LOWER EXTREMITY, LEFT CLINICAL INFORMATION: Pain. COMPARISON: Right lower extremity ultrasound 08/05/2022. TECHNIQUE: Ultrasound of the deep veins is performed from the hip to the calf with compression sonography and color and pulse Doppler assessment. Spectral analysis with color-flow imaging is performed. FINDINGS: Limited examination secondary to patient body habitus. There is normal venous compression and respiratory variation and augmented flow. The visualized left common femoral vein, superficial femoral vein, profunda femoral vein, popliteal vein, and the trifurcation region shows no evidence of deep venous thrombosis. There is no significant popliteal fossa cyst. US/US venous duplex LE LT IMPRESSION: Limited examination secondary to patient body habitus without evidence of deep venous thrombosis in the left lower extremity. If the patient's symptoms persist, followup ultrasound in 5 days 7 days might be of value to exclude proximal propagation from a non-visualized calf vein.
== END 2023-09-28 16:24 | disposition home or self-care (01) ==
LOC: HO.US 16:23
PROVIDERS: PCP General Practice; Visit Provider Nurse Practitioner Family
DX: M79.605 Pain in left leg (principal)
CPT/HCPCS: 93971

== ENCOUNTER 2023-11-09 09:47 | Outpatient (AMB) | payer MEDICAID, SELFPAY ==
--- NOTE | 2023-11-09 09:49 | MHC.OFFVIS ---
Vital Signs 11/09/23 09:50 Height 5 ft 5 in Weight 318 lb 5.56 oz BMI 53.0 BP 119/68 Blood Pressure Location Lt brachial Position Sitting Pulse 75 Intake Visit Reasons: Follow up medications Intake Note: Renetta presents to in office follow up today for medications. CC:Patient states that she was doing pretty good but she was staying at her daughter for a while and her eating was not too good. She states that she is having a very strong pain from rectum and vaginal area. She also reports fecal incontinence, constipation, and rectal bleeding sometimes. Per patient she does not have too much of an appetite, and sometimes has heartburn. She states that she does not know what medications she is taking because she only recognize them by color. 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 She has nausea and worse GERD, and pain in the LLQ to the suprapubic area that is sustained over the past week.? This is interesting because she seems to be consuming more fiber in terms of vegetables but she does admit that she limits her water intake because she has been told that she ?retained water. ? She was seen at the [facility] Walk In and they told her she had too much poop. This was determined via rectal exam. I think we need to go back to LInzess but at 72mcg instead of the 145mcg dose. This instead of increasing the senna or bisacodyl because the Linzess has an effect on the pain element of the IBS-C. She has been on a liquid diet for the past week r/t the pain.? Clearly she is in a good deal of discomfort.? I will get an x-ray to evaluate the stool burden in make sure there is no risk of small-bowel obstruction. She is agreeable to going for [facility] monitoring labs and US. ROV 4 weeks. (2) Irritable bowel syndrome with both constipation and diarrhea: ?Code(s): K58.2 - Mixed irritable bowel syndrome (3) GERD (gastroesophageal reflux disease): ?Code(s): K21.9 - Gastro-esophageal reflux disease without esophagitis ?Qualifiers: ?Esophagitis presence:?without esophagitis? Qualified Code(s):?K21.9 - Gastro-esophageal reflux disease without esophagitis (4) Hemorrhoids: ?Code(s): K64.9 - Unspecified hemorrhoids (5) Elevated LFTs: ?Comment: CT ABDOMEN AND PELVIS 11/2020 IMPRESSION: Abnormal bilateral internal iliac lymph node of unknown etiology. These lymph nodes are smaller compared to previous study 08/02/2019. ? Diffuse hepatic steatosis without focal lesion. Previous cholecystectomy changes are noted. ? No acute intra-abdominal process seen. Laboratory Tests 10/07/20 Plt Count 228 Total Bilirubin 0.4 AST 84 H ALT 100 H Alkaline Phosphatase 118 H TSH 1.25 Hemoglobin A1c % 10.2 The patient is known to be HIV positive and managed by infectious disease ?Code(s): R79.89 - Other specified abnormal findings of blood chemistry (6) Morbid obesity: ?Code(s): E66.01 - Morbid (severe) obesity due to excess calories (7) Constipation: ?Code(s): K59.00 - Constipation, unspecified ? ? ? Orders: Orders Alpha Fetoprotein Today R79.89 - Other specified abnormal findings of blood chemistry ? Ferritin Today R79.89 - Other specified abnormal findings of blood chemistry ? Gamma Glutamyl Transpeptidase Today R79.89 - Other specified abnormal findings of blood chemistry ? Liver Panel Today R79.89 - Other specified abnormal findings of blood chemistry ? US abdomen comp w elastography Today R79.89 - Other specified abnormal findings of blood chemistry ? XR abdomen w decubitus Today K59.00 - Constipation, unspecified ? TSH reflex Free T4 Today K59.00 - Constipation, unspecified ? Medications: New linaclotide (Linzess) 72 mcg? PO QAM 30 caps 3RF K58.2 - Mixed irritable bowel syndrome ? On Hold sennosides (Izabel-rayray) ?? Hold Comment:? Doctor's Order 17.2 mg (2 x 8.6 mg) PO BEDTIME 60 tabs 6RF constipation ? ? LABS: Laboratory Tests 10/21/22 06/21/23 11:06 15:59 Estimated GFR > 60 Total Bilirubin 0.3 GGT 33 AST 28 ALT 33 H Alkaline Phosphatase 84 Alpha Fetoprotein 1.3 ULTRASOUND OF THE ABDOMEN WITH ELASTOGRAPHY 07/05/23 (F2-F3) FINDINGS: PANCREAS: Normal. The visualized pancreatic head and body are normal in appearance. The remainder of the pancreas is obscured from visualization by the overlying bowel gas. ABDOMINAL AORTA: The proximal, middle, and distal aortic segments are normal in caliber. INFERIOR VENA CAVA: Visualized portions are normal. LIVER: Normal. The liver demonstrates normal size, contour and echogenicity. No focal lesion or intrahepatic biliary duct dilatation. The right lobe measures 21.1 cm in length. The left lobe measures 13.7 cm in length. Portal flow is towards the liver (hepatopetal). Shear wave liver elastography median stiffness is 2.21 m/s (reference: normal median stiffness is 1.3 m/s or less). IQR/median stiffness to assess sampling precision is 0.06 (reference: good quality data set is IQR/median stiffness of 0.15 or less). GALLBLADDER: Normal. The gallbladder is physiologically distended without evidence of stones, sludge, polyps, wall thickening or pericholecystic fluid. COMMON BILE DUCT: Normal in caliber measuring 0.5 cm in diameter. RIGHT KIDNEY: Normal. No hydronephrosis. No renal calculi or focal parenchymal lesions. The kidney measures 12.0 cm in maximum dimension. LEFT KIDNEY: Normal. No hydronephrosis. No renal calculi or focal parenchymal lesions. The kidney measures 11.6 cm in maximum dimension. SPLEEN: Normal. The spleen measures 11.2 cm in maximum dimension. FREE FLUID: None. US/US abdomen comp w elastography IMPRESSION: 1. There is generalized increase in hepatic echotexture, consistent with fatty infiltration or hepatocellular disease. Please correlate clinically. No focal hepatic mass or intrahepatic biliary dilatation is seen. 2. There is hepatomegaly. 3. Liver elastography: Measuremensts are consistent with compensated advanced chronic liver disease. X-RAY OF THE ABDOMEN FINDINGS: Limited evaluation secondary to patient body habitus. Nonobstructive bowel gas pattern. No significant stool burden. Right upper quadrant surgical clips. No acute osseous abnormalities. The included portions of the lung bases are clear.? XR/XR abdomen w decubitus IMPRESSION: 1.? Nonobstructive bowel gas pattern. 2.? No significant stool burden. ? TODAY'S VISIT [place]ese #Daren Lazaro She changed her pharmacy to [facility] from [facility], and she missed an appt r/t severe respiratory infection, so she ran out of some of her medication - cici her LInzess. She is having severe lower abd cramping and this pain radiates to her jie area and genitalia from the bilateral low quads. She passes some blood. The pain is 10/10 and paralyzes her form doing anything. This is interfering with her sleep. I will restart the LInzess at 72mcg and add Bentyl for the pain. However, the Linzess should also affect her pain in a positive direction. She also continues on her omeprazole, famotidine, and simethicone. ROV 4 weeks. [facility] Medical History (Updated 11/09/23 @ 15:53 by AMANDA Zelaya) Elevated LFTs Asthma Constipation Chest pain Family history of colon cancer Hemorrhoids Dyspnea Abnormal chest x-ray At high risk for breast cancer Chest pain Rectal bleeding Hemorrhoids Nausea Abdominal cramping Abdominal bloating Chest pain Nausea and vomiting Abdominal pain Shortness of breath Internal hemorrhoids with complication External hemorrhoids with complication Morbid obesity Colon cancer screening MARLON (obstructive sleep apnea) Asthma Irritable bowel syndrome with both constipation and diarrhea GERD (gastroesophageal reflux disease) Surgical History (Updated 11/09/23 @ 15:49 by AMANDA Zelaya) History of cardiac cath History of esophagogastroduodenoscopy (EGD) H/O colonoscopy History of cholecystectomy Family History Mother Heart attack Pacemaker Other Asthma History of cancer of uterus History of liver cancer History of ovarian cancer History of pancreatic cancer Social History Alcohol intake: never Patient Tobacco Use Status: Former Tobacco user Years Smoked: 10 +/- Review of Systems Const Denies fatigue, Denies fever(s), Denies night sweats, Denies poor appetite and Denies weight loss Eyes Details: glasses Reports requires corrective lenses ENT Reports Normal hearing present, Denies dental pain, Denies dysphagia, Denies hearing loss, Denies mouth pain, Denies odynophagia, Denies throat swelling, Denies tongue swelling and Reports other (Dentition adequate) Card Reports no additional complaints and Reports dyspnea on exertion Resp Reports dyspnea on exertion GI Details: Denies abdominal pain, Denies melena, Denies bloating, Denies hematochezia, Reports constipation, Reports GI cramping, Denies dysphagia, Denies excessive flatus, Denies early satiety, Reports heartburn, Denies diarrhea, Denies nausea, Denies odynophagia, Denies vomiting and Denies hematemesis Skin/Breast Denies pruritus, Denies lesions, Denies rash and Denies jaundice Neuro Reports Normal hearing present and Denies Abnormal speech present Endo Denies fatigue Aller/Immun Denies throat swelling and Denies tongue swelling Physical Exam Vital Signs: Last Vital Signs Pulse 75 11/09/23 09:50 BP 119/68 11/09/23 09:50 BMI result Body Mass Index 53.0 Const General: cooperative, no acute distress, well developed and well groomed Nutritional Appearance: well nourished and obese morbidly obese Orientation/consciousness: oriented to person, oriented to place and oriented to time Limitations: language barrier HEENT Head: Yes normocephalic and Yes atraumatic Eyes General: appearance normal, both eyes and all related structures Pupils: Equal, round and reactive pupils present Neck Neck: Yes normal visual inspection and Yes no lymphadenopathy Thyroid: Thyroid normal Resp Effort & Inspection: normal respiratory effort and able to speak in complete sentences Auscultation: clear to auscultation bilaterally Cardio Rate: regular rate Rhythm: regular rhythm Heart sounds: Normal, physiologic split S2 sound present Peripheral pulses: radial pulses present and posterior tibial pulses present GI Inspection: No distended, Yes Abdominal panniculus present and Yes obesity Palpation (GI): Soft to palpation, Tenderness to palpation present (GI) in the LLQ and in the RLQ, no guarding, not rigid and No hepatosplenomegaly present Percussion: Yes normal to percussion Auscultation: normal bowel sounds Rectal Exam - Female: deferred Skin General skin exam: no rashes or lesions noted, turgor normal, skin not dry, no jaundice, No spider nevi and no striae Rashes: no rashes Nails: normal Neuro General: oriented to person, oriented to place and oriented to time Cranial nerves: Yes Equal, round and reactive pupils present and Yes Normal hearing present Speech: No Abnormal speech present Extrem General: Yes normal to inspection, No clubbing, No cyanosis and No edema Psych Appearance: grossly normal and well kempt Mental Status: mental status grossly normal Speech and movement: Normal speech and movement present Affect: normal affect Attitude: cooperative Thought process: Normal thought process present and not confabulating Thought content: Normal thought content present Insight: Limited insight present (Psych) Judgement: Limited judgement present (Psych) Results Reviewed Results Reviewed: Laboratory Tests 10/21/22 06/21/23 11:06 15:59 Estimated GFR > 60 Total Bilirubin 0.3 GGT 33 AST 28 ALT 33 H Alkaline Phosphatase 84 Alpha Fetoprotein 1.3 ULTRASOUND OF THE ABDOMEN WITH ELASTOGRAPHY 07/05/23 (F2-F3) FINDINGS: PANCREAS: Normal. The visualized pancreatic head and body are normal in appearance. The remainder of the pancreas is obscured from visualization by the overlying bowel gas. ABDOMINAL AORTA: The proximal, middle, and distal aortic segments are normal in caliber. INFERIOR VENA CAVA: Visualized portions are normal. LIVER: Normal. The liver demonstrates normal size, contour and echogenicity. No focal lesion or intrahepatic biliary duct dilatation. The right lobe measures 21.1 cm in length. The left lobe measures 13.7 cm in length. Portal flow is towards the liver (hepatopetal). Shear wave liver elastography median stiffness is 2.21 m/s (reference: normal median stiffness is 1.3 m/s or less). IQR/median stiffness to assess sampling precision is 0.06 (reference: good quality data set is IQR/median stiffness of 0.15 or less). GALLBLADDER: Normal. The gallbladder is physiologically distended without evidence of stones, sludge, polyps, wall thickening or pericholecystic fluid. COMMON BILE DUCT: Normal in caliber measuring 0.5 cm in diameter. RIGHT KIDNEY: Normal. No hydronephrosis. No renal calculi or focal parenchymal lesions. The kidney measures 12.0 cm in maximum dimension. LEFT KIDNEY: Normal. No hydronephrosis. No renal calculi or focal parenchymal lesions. The kidney measures 11.6 cm in maximum dimension. SPLEEN: Normal. The spleen measures 11.2 cm in maximum dimension. FREE FLUID: None. US/US abdomen comp w elastography IMPRESSION: 1. There is generalized increase in hepatic echotexture, consistent with fatty infiltration or hepatocellular disease. Please correlate clinically. No focal hepatic mass or intrahepatic biliary dilatation is seen. 2. There is hepatomegaly. 3. Liver elastography: Measuremensts are consistent with compensated advanced chronic liver disease. X-RAY OF THE ABDOMEN FINDINGS: Limited evaluation secondary to patient body habitus. Nonobstructive bowel gas pattern. No significant stool burden. Right upper quadrant surgical clips. No acute osseous abnormalities. The included portions of the lung bases are clear.? XR/XR abdomen w decubitus IMPRESSION: 1.? Nonobstructive bowel gas pattern. 2.? No significant stool burden. Assessment & Plan Assessment & Plan (1) Erosive esophagitis: Comment: 2018 EGD with esophageal ulcer Code(s): K22.10 - Ulcer of esophagus without bleeding Category: Medical (2) Irritable bowel syndrome with both constipation and diarrhea: Code(s): K58.2 - Mixed irritable bowel syndrome Category: Medical (3) GERD (gastroesophageal reflux disease): Code(s): K21.9 - Gastro-esophageal reflux disease without esophagitis Category: Medical Qualifiers: Esophagitis presence: without esophagitis Qualified Code(s): K21.9 - Gastro-esophageal reflux disease without esophagitis (4) LLQ abdominal pain: Comment: Moderate diverticulosis could be the source Code(s): R10.32 - Left lower quadrant pain Category: Medical (5) Elevated LFTs: Comment: BASELINE LABORATORY TESTS 10/07/20 Plt Count 228 Total Bilirubin 0.4 AST 84 H ALT 100 H Alkaline Phosphatase 118 H TSH 1.25 Hemoglobin A1c % 10.2 The patient is known to be HIV positive and managed by infectious disease ULTRASOUND OF THE ABDOMEN WITH ELASTOGRAPHY 07/05/23 (F2-F3) CURRENT LABS 10/21/2300/29/24 11:0615:59 Estimated GFR > 60 Total Bilirubin 0.3 GGT 33 AST 28 ALT 33 H Alkaline Phosphatase 84 Alpha Fetoprotein 1.3 ULTRASOUND OF THE ABDOMEN WITH ELASTOGRAPHY 07/05/23 (F2-F3) FINDINGS: PANCREAS: Normal. The visualized pancreatic head and body are normal in appearance. The remainder of the pancreas is obscured from visualization by the overlying bowel gas. ABDOMINAL AORTA: The proximal, middle, and distal aortic segments are normal in caliber. INFERIOR VENA CAVA: Visualized portions are normal. LIVER: Normal. The liver demonstrates normal size, contour and echogenicity. No focal lesion or intrahepatic biliary duct dilatation. The right lobe measures 21.1 cm in length. The left lobe measures 13.7 cm in length. Portal flow is towards the liver (hepatopetal). Shear wave liver elastography median stiffness is 2.21 m/s (reference: normal median stiffness is 1.3 m/s or less). IQR/median stiffness to assess sampling precision is 0.06 (reference: good quality data set is IQR/median stiffness of 0.15 or less). GALLBLADDER: Normal. The gallbladder is physiologically distended without evidence of stones, sludge, polyps, wall thickening or pericholecystic fluid. COMMON BILE DUCT: Normal in caliber measuring 0.5 cm in diameter. RIGHT KIDNEY: Normal. No hydronephrosis. No renal calculi or focal parenchymal lesions. The kidney measures 12.0 cm in maximum dimension. LEFT KIDNEY: Normal. No hydronephrosis. No renal calculi or focal parenchymal lesions. The kidney measures 11.6 cm in maximum dimension. SPLEEN: Normal. The spleen measures 11.2 cm in maximum dimension. FREE FLUID: None. US/US abdomen comp w elastography IMPRESSION: 1. There is generalized increase in hepatic echotexture, consistent with fatty infiltration or hepatocellular disease. Please correlate clinically. No focal hepatic mass or intrahepatic biliary dilatation is seen. 2. There is hepatomegaly. 3. Liver elastography: Measuremensts are consistent with compensated advanced chronic liver disease. Code(s): R79.89 - Other specified abnormal findings of blood chemistry Category: Medical Plan [place]ese #Daren Live She changed her pharmacy to [facility] from [facility], and she missed an appt r/t severe respiratory infection, so she ran out of some of her medication - cici her LInzess. She is having severe lower abd cramping and this pain radiates to her jie area and genitalia from the bilateral low quads. She passes some blood. The pain is 10/10 and paralyzes her form doing anything. This is interfering with her sleep. I will restart the LInzess at 72mcg and add Bentyl for the pain. However, the Linzess should also affect her pain in a positive direction. She also continues on her omeprazole, famotidine, and simethicone. ROV 4 weeks. Medications: New dicyclomine 20 mg PO QID 120 tabs 1RF 30 days Refilled simethicone 180 mg PO TID 90 caps 6RF R14.0 - Abdominal distension (gaseous) famotidine 40 mg PO BEDTIME 30 tabs 6RF K22.10 - Ulcer of esophagus without bleeding omeprazole 40 mg PO DAILY 30 caps 6RF linaclotide (Linzess) 72 mcg PO QAM 30 caps 6RF K58.2 - Mixed irritable bowel syndrome omeprazole 40 mg PO DAILY 30 caps 6RF psyllium husk 0.4 grams PO BEDTIME 30 caps 6RF linaclotide (Linzess) 72 mcg PO QAM 30 caps 6RF K58.2 - Mixed irritable bowel syndrome psyllium husk 0.4 grams PO BEDTIME 30 caps 6RF simethicone 180 mg PO TID 90 caps 6RF R14.0 - Abdominal distension (gaseous) Coding Level of Care Code Est Pt Level 4 (12756) Diagnoses Erosive esophagitis K22.10 Irritable bowel syndrome with both constipation and diarrhea K58.2 Gastroesophageal reflux disease without esophagitis K21.9 Esophagitis presence: without esophagitis LLQ abdominal pain R10.32 Elevated LFTs R79.89
[2023-11-09 09:50] VITALS: BP 119/68; PULSE 75; BMI 53.0
== END 2023-11-09 10:16 | disposition home or self-care (01) ==
PROVIDERS: PCP General Practice; Visit Provider Nurse Practitioner
DX: K22.10 Ulcer of esophagus without bleeding (principal); K58.2 Mixed irritable bowel syndrome; K21.9 Gastro-esophageal reflux disease without esophagitis; R10.32 Left lower quadrant pain; R79.89 Other specified abnormal findings of blood chemistry
CPT/HCPCS: 99214

== ENCOUNTER → 2023-11-09 09:47 | Outpatient (BNVA) | payer MEDICAID, SELFPAY | PROVIDERS: PCP General Practice; Visit Provider Nurse Practitioner | DX: K22.10 Ulcer of esophagus without bleeding (principal); K58.2 Mixed irritable bowel syndrome; K21.9 Gastro-esophageal reflux disease without esophagitis; R10.32 Left lower quadrant pain; R79.89 Other specified abnormal findings of blood chemistry | CPT/HCPCS: 99212 ==

== ENCOUNTER 2023-11-16 15:19 | Outpatient (AMB) | payer MEDICAID, SELFPAY ==
--- NOTE | 2023-11-16 15:24 | MHC.OFFVIS ---
Vital Signs 11/16/23 15:25 Height 5 ft 5 in Weight 318 lb 5.56 oz BMI 53.0 Pulse 82 Pulse Source Pulse Oximeter Pulse Oximetry (%) 97 Oxygen Delivery Method Room Air Intake Visit Reasons: Obstructive sleep apnea [employer] Technician Required: No Allergies No Known Allergies [No Known Allergies*] Allergy (Verified 11/16/23 15:31) HPI Comments Details: The patient is a 48 year-old woman with a known history of asthma, HIV her antiretroviral therapy and obstructive sleep apnea. She has been describing worsening daytime drowsiness in the last several months. She states she was diagnosed with obstructive sleep apnea couple years ago and she has been on CPAP therapy ever since. However, she became sick requiring hospitalizations and other medical issues that kept her from using machine. Therefore the patient could not get supplies and therefore was not able to continue using the CPAP. She has been struggling to get back to using the PAP therapy since she was very helpful in beneficial for her. We did review her previous sleep study demonstrating moderate degree of sleep apnea with an AHI of 24 anything which worse during REM sleep. The patient responded well to CPAP therapy. In the meantime she is also describing increasing shortness of breath. She has had episodes of recurrent pneumonias. Currently she is immunocompetent as her HIV is being treated effectively. She did undergo a chest x-ray demonstrating increased haziness of the lungs suggesting some degree of pneumonitis. She does complain of shortness of breath in addition to some pleuritic discomfort of her chest area in primarily on the right side. She also complains of lower extremity edema swelling. 10/05/2022 the patient is here for pulmonary follow-up visit. The patient recently was sick with worsening respiratory symptoms prior a cough which is productive in nature. She called the office and the patient did received some antibiotics and prednisone. She does feel better at this time although she still not her baseline. We had done blood work as well demonstrating a normal D-dimer ruling out the possibility of thromboembolic disease. The patient also has been having difficulties with her sleep. She still having significant daytime drowsiness. Her [place] score is elevated 04/16. We had called the [employer] during the last visit because she had not received her CPAP machine. Apparently the patient had a CPAP before and was not given instructions on how to effectively use it so therefore that she could not tolerated. When she did follow-up with us we did adjust the CPAP and she did a lot better she tolerated much better. But, at that point was too late the insurance company was no longer pain 4 in was taken away. Now the patient is usually waiting for it to start therapy. She had a repeat sleep study demonstrating the sleep apnea and I am hopeful that she can get started on CPAP therapy soon. The patient is currently working with the [employer], Rosalba. 02/08/2023 the patient is here for pulmonary follow visit. She continues to have difficulty with her sleep. She does have issues where she wakes up short of breath and disoriented. She is missing her CPAP. We did call the [employer] company again day will try to get her situated with CPAP this week or next. If she is not set up with CPAP she will call me and let me know so we can have an alternative plan. The patient though benefit from her CPAP therapy. The patient also has been responding well to the addition of the Spiriva. She has been using the inhalers with good effect. She still complaining of significant joint pains and musculoskeletal issues that keep her from exercising. She has a hard time going up and down the stairs. This limits her activity and she gets down about that overall. Hopefully I will answer we can get her on CPAP she starts feeling more energetic during the daytime. In addition to that she will try melatonin in conjunction with gabapentin to see if this helps her sleep better at nighttime. The patient is aware that when she gets the machine she needs to use it every night for 4 hours at least. Otherwise the machine will be taken away. 11/16/2023 the patient is here for a pulmonary follow-up visit. The patient is still struggling with her CPAP. The patient initially has not difficulties getting his supplies from a DME. Finally she did get him and she states that the mask that she had was broken by her dog. Then for she was not able to use it. Her son did buy her a new mask but is a fullface mask she could not tolerate it. I did have a Dream[employer]ear nasal mask available that she is going to use and start using regularly 4 hours a day. She understands that she does not use his machine is going to be taken away. She would respiratory symptoms have been fairly stable on medications. She has been using her Spiriva the effective and the Symbicort she has been using it as needed. Explained her the Symbicort she should at least use it daily especially since she is having increasing respiratory symptoms. She understands that Symbicort she can use up to twice a day. [facility] Medical History (Updated 11/09/23 @ 15:53 by AMANDA Zelaya) Elevated LFTs Asthma Constipation Chest pain Family history of colon cancer Hemorrhoids Dyspnea Abnormal chest x-ray At high risk for breast cancer Chest pain Rectal bleeding Hemorrhoids Nausea Abdominal cramping Abdominal bloating Chest pain Nausea and vomiting Abdominal pain Shortness of breath Internal hemorrhoids with complication External hemorrhoids with complication Morbid obesity Colon cancer screening MARLON (obstructive sleep apnea) Asthma Irritable bowel syndrome with both constipation and diarrhea GERD (gastroesophageal reflux disease) Surgical History (Updated 11/09/23 @ 15:49 by AMANDA Zelaya) History of cardiac cath History of esophagogastroduodenoscopy (EGD) H/O colonoscopy History of cholecystectomy Family History Mother Heart attack Pacemaker Other Asthma History of cancer of uterus History of liver cancer History of ovarian cancer History of pancreatic cancer Social History Alcohol intake: never Patient Tobacco Use Status: Former Tobacco user Years Smoked: 10 +/- Review of Systems Const Reports daytime sleepiness, Reports fatigue, Denies night sweats, Reports snoring and Reports stops breathing during sleep ENT Denies change in voice, Denies lip swelling, Denies mouth pain, Reports nasal congestion, Reports nasal discharge and Denies tongue swelling Card Denies chest pain, Reports leg edema and Reports dyspnea on exertion Resp Denies cough, Reports dyspnea on exertion and Reports snoring GI Denies abdominal pain Musc Denies no additional complaints Neuro Denies Neuro-related abnormal movements Psych Denies no additional complaints Endo Reports fatigue Christofer/Lymph Denies easy bleeding and Denies lymphadenopathy Aller/Immun Denies lip swelling and Denies tongue swelling Physical Exam Vital Signs: Last Vital Signs Pulse 82 11/16/23 15:25 Pulse Ox 97 11/16/23 15:25 Oxygen Delivery Method Room Air 11/16/23 15:25 BMI result Body Mass Index 53.0 Const General: alert HEENT General nose exam: Abnormal external nose present and Nasal discharge present Neck Neck: Yes normal visual inspection, Yes full ROM and Yes no lymphadenopathy Chest Chest palpation & inspection: normal inspection of the chest and localized rib tenderness with anteroposterior compression Resp Auscultation: diminished lung sounds Cardio Rate: regular rate Rhythm: regular rhythm Heart sounds: S1 normal heart sound present and S2 normal heart sound present GI Palpation (GI): Soft to palpation and nontender Auscultation: normal bowel sounds Skin General skin exam: rashes and/or lesions noted Assessment & Plan Assessment & Plan (1) MARLON (obstructive sleep apnea): Code(s): G47.33 - Obstructive sleep apnea (adult) (pediatric) Category: Medical (2) Dyspnea: Comment: Likely multifactorial. Code(s): R06.00 - Dyspnea, unspecified Category: Medical Qualifiers: Dyspnea type: dyspnea on exertion Qualified Code(s): R06.00 - Dyspnea, unspecified (3) Asthma: Code(s): J45.909 - Unspecified asthma, uncomplicated Category: Medical Qualifiers: Asthma complication type: uncomplicated Asthma persistence: persistent Asthma severity: moderate Qualified Code(s): J45.40 - Moderate persistent asthma, uncomplicated (4) GERD (gastroesophageal reflux disease): Code(s): K21.9 - Gastro-esophageal reflux disease without esophagitis Category: Medical Qualifiers: Esophagitis presence: without esophagitis Qualified Code(s): K21.9 - Gastro-esophageal reflux disease without esophagitis Plan Needs to start APAP, reached out to her [employer] company, needs a smaller mask (provided dreamwear nasal mask) continue Melatonin continue Spiriva continue Symbicort MINESH as needed F/U 4 months Medications: New benzonatate 200 mg PO BID PRN 60 caps 0RF cough 30 days albuterol sulfate 90 mcg/actuation 2 inhalations inhalation Q6H PRN 18 grams 12RF shortness of breath or wheezing 30 days J44.9 - Chronic obstructive pulmonary disease, unspecified Refilled tiotropium bromide 2.5 mcg/actuation (Spiriva Respimat) 2 puffs inhalation DAILY 1 ea 11RF 30 days budesonide-formoterol 160-4.5 mcg/actuation (Symbicort) 2 puffs PO BID 10.2 grams 11RF J45.909 - Unspecified asthma, uncomplicated Coding Level of Care Code Est Pt Level 4 (06494) Diagnoses MARLON (obstructive sleep apnea) G47.33 Dyspnea on exertion R06.00 Dyspnea type: dyspnea on exertion Moderate persistent asthma without complication J45.40 Asthma complication type: uncomplicated Asthma persistence: persistent Asthma severity: moderate Gastroesophageal reflux disease without esophagitis K21.9 Esophagitis presence: without esophagitis Time Spent (min) 17
[2023-11-16 15:25] VITALS: PULSE 82; O2SAT 97; BMI 53.0
== END 2023-11-16 15:52 | disposition home or self-care (01) ==
PROVIDERS: PCP General Practice; Referring Provider General Practice; Visit Provider Hospitalist
DX: G47.33 Obstructive sleep apnea (adult) (pediatric) (principal); R06.00 Dyspnea, unspecified; J45.40 Moderate persistent asthma, uncomplicated; K21.9 Gastro-esophageal reflux disease without esophagitis
CPT/HCPCS: 99214

== ENCOUNTER → 2023-11-16 15:19 | Outpatient (BNVA) | payer MEDICAID, SELFPAY | PROVIDERS: PCP General Practice; Visit Provider Hospitalist | DX: G47.33 Obstructive sleep apnea (adult) (pediatric) (principal); R06.00 Dyspnea, unspecified; J45.40 Moderate persistent asthma, uncomplicated; K21.9 Gastro-esophageal reflux disease without esophagitis | CPT/HCPCS: 99212 ==

== ENCOUNTER 2024-02-14 11:20 | Outpatient (REF) | payer MEDICAID, SELFPAY ==
[2024-02-14 13:39] LABS: MANUAL DIFF FLAG NO
[2024-02-14 13:42] LABS: Basophils Absolute Auto 0.1 X10*3/uL (0.0-0.2); Basophils Percent Auto 0.8 % (0-2); Eosinophils Absolute Auto 0.3 X10*3/uL (0.0-0.4); Eosinophils Percent Auto 3.5 % (0-4); Hematocrit 38.8 % (37.0-47.0); Hemoglobin 12.8 g/dl (12.0-16.0); Imm Gran Abs Auto 0.02 X10*3/uL (0.00-0.03); Imm Gran Pct Auto 0.3 % (0.0-0.4); Lymphocytes Absolute Auto 2.9 X10*3/uL (1.2-4.9); Lymphocytes Percent Auto 36.6 % (20-40); Mean Corpuscular Hemoglobin 27.5 pg (27.0-33.0); Mean Corpuscular Volume 83.4 fL (80.0-98.0); Mean Platelet Volume 11.1 fL (9.4-12.3); Monocytes Absolute Auto 0.3 X10*3/uL (0.1-1.2); Monocytes Percent Auto 4.4 % (2-11); Neutrophils Absolute Auto 4.2 x10*3/uL (2.0-8.3); Neutrophils Percent Auto 54.4 % (45-73); Platelet Count 222 X10*3/uL (160-400); Red Blood Count 4.65 X10*6/uL (4.20-5.50); Red Cell Distribution Width 13.1 % (11.0-16.0); White Blood Count 7.8 X10*3/uL (4.8-10.8)
[2024-02-14 14:11] LABS: Alanine Aminotransferase 42 U/L (0-31); Alkaline Phosphatase 95 U/L (39-117); Anion Gap 12 (12-20); Aspartate Amino Transferase 34 U/L (5-31); Bilirubin Total 0.4 mg/dL (0.0-1.0); Blood Urea Nitrogen 9 mg/dL (9-16); Calcium 9.6 mg/dL (8.4-10.2); Carbon Dioxide 25 mmol/L (22-29); Chloride 103 mmol/L (96-108); Cholesterol 199 mg/dL (<200); Estimated Glomerular Filt Rate > 60; Glucose Random 317 mg/dL (60-115); HDL Cholesterol 37 mg/dL (>40); LDL Cholesterol Calculated 124 mg/dL (<100); Potassium 4.2 mmol/L (3.3-5.1); Sodium 136 mmol/L (135-145); Triglycerides 193 mg/dL (<150)
[2024-02-14 14:18] LABS: Creatinine Urine 105.36 mg/dL; Microalbum/Creatinine Ratio Ur 37.9 ug/mg cr (<30)
[2024-02-14 14:32] LABS: Reflex LDLD? No
[2024-02-15 08:23] LABS: Hepatitis A Antibody IgG REACTIVE (Nonreactive); ~Hepatitis A Antibody IgG 2.73 S/CO (0.00-0.99)
[2024-02-15 08:30] LABS: HBc Num1 0.43 S/CO (0.00-0.79); HBsAGNum1 0.36 S/CO (0.00-0.99); Hepatitis B Core Antibody Nonreactive (Nonreactive); Hepatitis B Surface Antigen Negative (Negative); ~HepC Num1 0.24 S/CO (0.00-0.79); ~Hepatitis B Surface Antibody NONREACTIVE (Nonreactive); ~Hepatitis C Antibody Nonreactive (Nonreactive)
[2024-02-15 08:36] LABS: Syphilis Screen Nonreactive (Nonreactive)
[2024-02-16 03:09] LABS: HIV RNA PCR Qn Copies 42 copies/mL (NOT DETECTED); HIV RNA PCR Qn Log Copies 1.62 (NOT DETECTED)
[2024-02-17 05:48] LABS: TS Negative Control Passed; TS Panel A 0; TS Panel B 1; TS Positive Control Passed; TSpotTB Negative (Negative)
[2024-02-18 16:19] LABS: Absolute CD3 Count 2148 cells/uL (840-3060); Absolute CD4 Count 784 cells/uL (490-1740); Absolute CD8 Count 1359 cells/uL (180-1170); Absolute Lymphocytes 2697 cells/uL (850-3900); CD4 CD8 Ratio 0.58 (0.86-5.00); Percent CD3 Cells 80 % (57-85); Percent CD4 Cells 29 % (30-61); Percent CD8 Cells 50 % (12-42)
== END 2024-02-14 11:21 | disposition home or self-care (01) ==
LOC: HO.HHCL 11:20
PROVIDERS: General Practice; Visit Provider Internal Medicine
DX: Z21 Asymptomatic human immunodeficiency virus [HIV] infection status (principal); E11.9 Type 2 diabetes mellitus without complications
CPT/HCPCS: 36415; 80053; 80061; 82043; 82570; 85025; 86359; 86360; 86481; 86704; 86706; 86708; 86780; 86803; 87340; 87536

== ENCOUNTER 2024-02-15 09:32 | Outpatient (AMB) | payer MEDICAID, SELFPAY ==
--- NOTE | 2024-02-15 09:45 | A.OFFVIS_ITS ---
Vital Signs 02/15/24 09:50 Height 5 ft 5 in Weight 306 lb 7.08 oz BMI 51.0 BP 114/58 L Blood Pressure Location Lt brachial Position Sitting Pulse 64 Intake Visit Reasons: lower abd pain, CIC, GERD Intake Note: Patient in office today in follow up of abd pain, and GERD. CC: Patient c/o colon pain, rectal pain, abdominal pain, rectal bleeding, diarrhea on and off, fecal incontinence, and GERD. Allergies No Known Allergies [No Known Allergies*] Allergy (Verified 02/15/24 09:53) HPI HPI lower abd pain, CIC, GERD: Details: Assessment & Plan (1) Erosive esophagitis: Comment: 2017 EGD with esophageal ulcer Code(s): K22.10 - Ulcer of esophagus without bleeding Category: Medical (2) Irritable bowel syndrome with both constipation and diarrhea: Code(s): K58.2 - Mixed irritable bowel syndrome Category: Medical (3) GERD (gastroesophageal reflux disease): Code(s): K21.9 - Gastro-esophageal reflux disease without esophagitis Category: Medical Qualifiers: Esophagitis presence: without esophagitis Qualified Code(s): K21.9 - Gastro-esophageal reflux disease without esophagitis (4) LLQ abdominal pain: Comment: Moderate diverticulosis could be the source Code(s): R10.32 - Left lower quadrant pain Category: Medical (5) Elevated LFTs: Comment: BASELINE LABORATORY TESTS 10/07/20 Plt Count 228 Total Bilirubin 0.4 AST 84 H ALT 100 H Alkaline Phosphatase 118 H TSH 1.25 Hemoglobin A1c % 10.2 The patient is known to be HIV positive and managed by infectious disease ULTRASOUND OF THE ABDOMEN WITH ELASTOGRAPHY 07/05/23 (F2-F3) CURRENT LABS 10/21/2300/29/24 11:0615:59 Estimated GFR > 60 Total Bilirubin 0.3 GGT 33 AST 28 ALT 33 H Alkaline Phosphatase 84 Alpha Fetoprotein 1.3 ULTRASOUND OF THE ABDOMEN WITH ELASTOGRAPHY 07/05/23 (F2-F3) FINDINGS: PANCREAS: Normal. The visualized pancreatic head and body are normal in appearance. The remainder of the pancreas is obscured from visualization by the overlying bowel gas. ABDOMINAL AORTA: The proximal, middle, and distal aortic segments are normal in caliber. INFERIOR VENA CAVA: Visualized portions are normal. LIVER: Normal. The liver demonstrates normal size, contour and echogenicity. No focal lesion or intrahepatic biliary duct dilatation. The right lobe measures 21.1 cm in length. The left lobe measures 13.7 cm in length. Portal flow is towards the liver (hepatopetal). Shear wave liver elastography median stiffness is 2.21 m/s (reference: normal median stiffness is 1.3 m/s or less). IQR/median stiffness to assess sampling precision is 0.06 (reference: good quality data set is IQR/median stiffness of 0.15 or less). GALLBLADDER: Normal. The gallbladder is physiologically distended without evidence of stones, sludge, polyps, wall thickening or pericholecystic fluid. COMMON BILE DUCT: Normal in caliber measuring 0.5 cm in diameter. RIGHT KIDNEY: Normal. No hydronephrosis. No renal calculi or focal parenchymal lesions. The kidney measures 12.0 cm in maximum dimension. LEFT KIDNEY: Normal. No hydronephrosis. No renal calculi or focal parenchymal lesions. The kidney measures 11.6 cm in maximum dimension. SPLEEN: Normal. The spleen measures 11.2 cm in maximum dimension. FREE FLUID: None. US/US abdomen comp w elastography IMPRESSION: 1. There is generalized increase in hepatic echotexture, consistent with fatty infiltration or hepatocellular disease. Please correlate clinically. No focal hepatic mass or intrahepatic biliary dilatation is seen. 2. There is hepatomegaly. 3. Liver elastography: Measuremensts are consistent with compensated advanced chronic liver disease. Code(s): R79.89 - Other specified abnormal findings of blood chemistry Category: Medical Plan [place] #Daren Live She changed her pharmacy to [facility] from [facility], and she missed an appt r/t severe respiratory infection, so she ran out of some of her medication - cici her LInzess. She is having severe lower abd cramping and this pain radiates to her jie area and genitalia from the bilateral low quads. She passes some blood. The pain is 10/10 and paralyzes her form doing anything. This is interfering with her sleep. I will restart the LInzess at 72mcg and add Bentyl for the pain. However, the Linzess should also affect her pain in a positive direction. She also continues on her omeprazole, famotidine, and simethicone. ROV 4 weeks. Medications: New dicyclomine 20 mg PO QID 120 tabs 1RF 30 days Refilled simethicone 180 mg PO TID 90 caps 6RF R14.0 - Abdominal distension (gaseous) famotidine 40 mg PO BEDTIME 30 tabs 6RF K22.10 - Ulcer of esophagus without bleeding omeprazole 40 mg PO DAILY 30 caps 6RF linaclotide (Linzess) 72 mcg PO QAM 30 caps 6RF K58.2 - Mixed irritable bowel syndrome omeprazole 40 mg PO DAILY 30 caps 6RF psyllium husk 0.4 grams PO BEDTIME 30 caps 6RF linaclotide (Linzess) 72 mcg PO QAM 30 caps 6RF K58.2 - Mixed irritable bowel syndrome psyllium husk 0.4 grams PO BEDTIME 30 caps 6RF simethicone 180 mg PO TID 90 caps 6RF R14.0 - Abdominal distension (gaseous) TODAYS VISIT [place] #Alecia (new) LInzess at 72mcg and add Bentyl for the pain. However, the Linzess should also affect her pain in a positive direction. She also continues on her omeprazole, famotidine, and simethicone. She says that at first the LInzess worked, but then the cramping returned and it is severe. She never received the bentyl. I have my staff calling to see why. This will be important. In the meantime, she is having now fecal and urinary incontinence so we will change the LInzess 72mcg to prn. Her lower abd pain continues as a cramping/twisting pain. She continues to have numbness in her hands and feet and she is concerned that my primary has not referred me to a neurologist. It seems she is being treated for diabetic neuropathy with lyle, and I'm uncertain if neurology would have anything to contribute. It turns out that she is supposed to have her medications delivered and the pharmacy says she is not picking up her medications, we have several on hold. We call the pharmacy to see if we can resolve this. she has difficulty getting out and walking. SHe also does not drive. I suggest that if this does not get resolved she may want to try [facility] pharmacy. She has external roids but she has difficulty using the roid cream and they are painful, we discuss using ice packs as well. Discussed surgical referral since this is the most sustained period of time she has had the hemorrhoidal pain w/o success with creams and bowel control. She wants a referral. ROV 4 weeks. [facility] Medical History Elevated LFTs Asthma Constipation Chest pain Family history of colon cancer Hemorrhoids Dyspnea Abnormal chest x-ray At high risk for breast cancer Chest pain Rectal bleeding Hemorrhoids Nausea Abdominal cramping Abdominal bloating Chest pain Nausea and vomiting Abdominal pain Shortness of breath Internal hemorrhoids with complication External hemorrhoids with complication Morbid obesity Colon cancer screening MARLON (obstructive sleep apnea) Asthma Irritable bowel syndrome with both constipation and diarrhea GERD (gastroesophageal reflux disease) Surgical History History of cardiac cath History of esophagogastroduodenoscopy (EGD) H/O colonoscopy History of cholecystectomy Family History Mother Heart attack Pacemaker Other Asthma History of cancer of uterus History of liver cancer History of ovarian cancer History of pancreatic cancer Social History Alcohol intake: never Patient Tobacco Use Status: Former Tobacco user Years Smoked: 10 +/- Review of Systems Eyes Details: glasses ENT Reports Normal hearing present Neuro Reports Normal hearing present and Denies Abnormal speech present Physical Exam Vital Signs: Last Vital Signs Pulse 64 02/15/24 09:50 BP 114/58 L 02/15/24 09:50 BMI result Body Mass Index 51.0 Const General: cooperative, no acute distress, well developed and well groomed Nutritional Appearance: well nourished and obese morbidly obese Orientation/consciousness: oriented to person, oriented to place and oriented to time Limitations: language barrier HEENT Head: Yes normocephalic and Yes atraumatic Eyes General: appearance normal, both eyes and all related structures Pupils: Equal, round and reactive pupils present Neck Neck: Yes normal visual inspection and Yes no lymphadenopathy Thyroid: Thyroid normal Resp Effort & Inspection: normal respiratory effort and able to speak in complete sentences Auscultation: clear to auscultation bilaterally Cardio Rate: regular rate Rhythm: regular rhythm Heart sounds: Normal, physiologic split S2 sound present Peripheral pulses: radial pulses present and posterior tibial pulses present GI Inspection: No distended, Yes Abdominal panniculus present and Yes obesity Palpation (GI): Soft to palpation, Tenderness to palpation present (GI) in the LLQ and in the RLQ, no guarding, not rigid and No hepatosplenomegaly present Percussion: Yes normal to percussion Auscultation: normal bowel sounds Rectal Exam - Female: deferred Skin General skin exam: no rashes or lesions noted, turgor normal, skin not dry, no jaundice, No spider nevi and no striae Rashes: no rashes Nails: normal Neuro General: oriented to person, oriented to place and oriented to time Cranial nerves: Yes Equal, round and reactive pupils present and Yes Normal hearing present Speech: No Abnormal speech present Extrem General: Yes normal to inspection, No clubbing, No cyanosis and No edema Psych Appearance: grossly normal and well kempt Mental Status: mental status grossly normal Speech and movement: Normal speech and movement present Affect: normal affect Attitude: cooperative Thought process: Normal thought process present and not confabulating Thought content: Normal thought content present Insight: Limited insight present (Psych) Judgement: Limited judgement present (Psych) Assessment & Plan Assessment & Plan (1) Irritable bowel syndrome with both constipation and diarrhea: Code(s): K58.2 - Mixed irritable bowel syndrome Category: Medical (2) Erosive esophagitis: Comment: 2018 EGD with esophageal ulcer Code(s): K22.10 - Ulcer of esophagus without bleeding Category: Medical (3) GERD (gastroesophageal reflux disease): Code(s): K21.9 - Gastro-esophageal reflux disease without esophagitis Category: Medical Qualifiers: Esophagitis presence: without esophagitis Qualified Code(s): K21.9 - Gastro-esophageal reflux disease without esophagitis (4) LLQ abdominal pain: Comment: Moderate diverticulosis could be the source Code(s): R10.32 - Left lower quadrant pain Category: Medical Plan [place] #Alecia (new) LInzess at 72mcg and add Bentyl for the pain. However, the Linzess should also affect her pain in a positive direction. She also continues on her omeprazole, famotidine, and simethicone. She says that at first the LInzess worked, but then the cramping returned and it is severe. She never received the bentyl. I have my staff calling to see why. This will be important. In the meantime, she is having now fecal and urinary incontinence so we will change the LInzess 72mcg to prn. Her lower abd pain continues as a cramping/twisting pain. She continues to have numbness in her hands and feet and she is concerned that my primary has not referred me to a neurologist. It seems she is being treated for diabetic neuropathy with lyle, and I'm uncertain if neurology would have anything to contribute. It turns out that she is supposed to have her medications delivered and the pharmacy says she is not picking up her medications, we have several on hold. We call the pharmacy to see if we can resolve this. she has difficulty getting out and walking. SHe also does not drive. I suggest that if this does not get resolved she may want to try [facility] pharmacy. She has external roids but she has difficulty using the roid cream and they are painful, we discuss using ice packs as well. Discussed surgical referral since this is the most sustained period of time she has had the hemorrhoidal pain w/o success with creams and bowel control. She wants a referral. ROV 4 weeks. Orders: Referrals General Surgery Referral K64.9 - Unspecified hemorrhoids Medications: Refilled omeprazole 40 mg PO DAILY 30 caps 6RF dicyclomine 20 mg PO QID 120 tabs 6RF 30 days K58.2 - Mixed irritable bowel syndrome Coding Level of Care Code Est Pt Level 3 (18249) Diagnoses Irritable bowel syndrome with both constipation and diarrhea K58.2 Erosive esophagitis K22.10 Gastroesophageal reflux disease without esophagitis K21.9 Esophagitis presence: without esophagitis LLQ abdominal pain R10.32
[2024-02-15 09:50] VITALS: BP 114/58; PULSE 64; BMI 51.0
== END 2024-02-15 10:40 | disposition home or self-care (01) ==
PROVIDERS: PCP General Practice; Visit Provider Nurse Practitioner
DX: K58.2 Mixed irritable bowel syndrome (principal); K22.10 Ulcer of esophagus without bleeding; K21.9 Gastro-esophageal reflux disease without esophagitis; R10.32 Left lower quadrant pain
CPT/HCPCS: 99213

== ENCOUNTER → 2024-02-15 09:32 | Outpatient (BNVA) | payer MEDICAID, SELFPAY | PROVIDERS: PCP General Practice; Visit Provider Nurse Practitioner | DX: K58.2 Mixed irritable bowel syndrome (principal); K22.10 Ulcer of esophagus without bleeding; K21.9 Gastro-esophageal reflux disease without esophagitis; R10.32 Left lower quadrant pain | CPT/HCPCS: 99212 ==

== ENCOUNTER 2024-02-29 07:52 | Outpatient (AMB) | payer MEDICAID, SELFPAY ==
--- NOTE | 2024-02-29 07:53 | MHC.OFFVIS ---
Vital Signs 02/29/24 08:02 Height 5 ft 5 in Weight 310 lb BMI 51.6 BP 120/67 Blood Pressure Location Rt brachial Position Sitting Pulse 62 Intake Visit Reasons: Painful hemorrhoids Intake Note: Patient referred by Alyssa Hurtado SENIOR ELECT[employer]ICAL [employer]OLS ENGINEER for hemorrhoids. Colonoscopy 2yrs ago. Hx of polyps. Patient c/o: painful external hemorrhoids. Bleeding with BM, Regulatory Compliance Engineer Required: Yes Regulatory Compliance Engineer Name: Sita LEES Accompanied by: Self / Same As Patient Allergies No Known Allergies [No Known Allergies*] Allergy (Verified 02/29/24 07:59) HPI Comments Details: Patient presents for evaluation of anorectal pain especially with bowel movements, and occasional blood in her stool. This is going on for several months time. Patient has had frequent colonoscopies in the past, the last of which was rough 2 years ago. These were performed at [facility] but she currently sees Gastroenterology here. She has history of polyps. Patient also has history of constipation and hard stool periodically. She denies any anal receptive practice. Patient also has a questionable history of irritable bowel syndrome. Her anorectal pain was quite severe to the point where she is afraid to have bowel movements. Chart was reviewed and patient evaluated [facility] Medical History Elevated LFTs Asthma Constipation Chest pain Family history of colon cancer Hemorrhoids Dyspnea Abnormal chest x-ray At high risk for breast cancer Chest pain Rectal bleeding Hemorrhoids Nausea Abdominal cramping Abdominal bloating Chest pain Nausea and vomiting Abdominal pain Shortness of breath Internal hemorrhoids with complication External hemorrhoids with complication Morbid obesity Colon cancer screening MARLON (obstructive sleep apnea) Asthma Irritable bowel syndrome with both constipation and diarrhea GERD (gastroesophageal reflux disease) Surgical History History of cardiac cath History of esophagogastroduodenoscopy (EGD) H/O colonoscopy History of cholecystectomy Family History Mother Heart attack Pacemaker Other Asthma History of cancer of uterus History of liver cancer History of ovarian cancer History of pancreatic cancer Social History Alcohol intake: never Patient Tobacco Use Status: Former Tobacco user Years Smoked: 10 +/- Physical Exam Vital Signs: Last Vital Signs Pulse 62 02/29/24 08:02 BP 120/67 02/29/24 08:02 BMI result Body Mass Index 51.6 GI Other: Very corpulent abdomen. Soft, benign. Rectal exam demonstrates posterior anal fissure with a sentinel tag. Very small external hemorrhoids. Rectal exam was deferred secondary to patient's discomfort. Assessment & Plan Assessment & Plan (1) Acute anal fissure: Code(s): K60.0 - Acute anal fissure Category: Surgical Plan I discussed with the patient and attempted conservative therapy regarding her anal fissure. This included drinking lots of water, roughage, raised and brain, Citrucel, or Metamucil, avoiding prolonged sitting on toilet. Patient states that her symptoms are so severe that she would like to know if there are any surgical options. I told her that there is procedure called internal sphincterotomy. I personally do not perform these but will refer her to 1 of my colleagues to see if they agree and are willing to pursue this with the patient. While patient is here today, we will see if Dr. Jackson and evaluate the patient in his schedule. Patient is willing to wait Coding Level of Care Code New Pt Level 4 (42084) Diagnoses Acute anal fissure K60.0
[2024-02-29 08:02] VITALS: BP 120/67; PULSE 62; BMI 51.6
== END 2024-02-29 09:01 | disposition home or self-care (01) ==
PROVIDERS: PCP General Practice; Referring Provider General Practice; Visit Provider Surgery
DX: K60.0 Acute anal fissure (principal)
CPT/HCPCS: 99204

== ENCOUNTER 2024-02-29 14:40 | Outpatient (REF) | payer MEDICAID, SELFPAY ==
--- NOTE | ~2024-02-29 | MM_ITS ---
EXAMINATION: MM SCREENING DIGITAL BREAST TOMOSYNTHESIS, BILATERAL CLINICAL INFORMATION: Screening. Asymptomatic. COMPARISON: Mammography: Comparison is made with available priors TECHNIQUE: Digital breast mammography with tomosynthesis is performed in both the craniocaudal and mediolateral oblique views along with computer-aided detection (CAD). FINDINGS: There are scattered areas of fibroglandular density (ACR BI-RADS breast composition Category b). There are no significant masses, abnormal calcifications, or other abnormalities. MM/MM tomosynthesis screening BI IMPRESSION: No mammographic evidence of malignancy. ASSESSMENT: BI-RADS BI-RADS 1 - Negative RECOMMENDATION: Routine annual mammography screening. 1 year F/U This examination should not preclude the clinical evaluation of a suspicious palpable abnormality. This patient's information was entered into a reminder system with a target due date for their next mammogram. Electronically signed by: Becky Correa DO 03/13/2024 05:57 PM EDT
== END 2024-02-29 14:41 | disposition home or self-care (01) ==
LOC: HO.MAMMO 14:40
PROVIDERS: Visit Provider General Practice
DX: Z12.31 Encounter for screening mammogram for malignant neoplasm of breast (principal)
CPT/HCPCS: 77063; 77067; 99202

== ENCOUNTER → 2024-02-29 14:45 | Outpatient (BNV) | payer MEDICAID, SELFPAY | PROVIDERS: Visit Provider Internal Medicine | DX: Z12.31 Encounter for screening mammogram for malignant neoplasm of breast (principal) | CPT/HCPCS: 77063; 77067 ==

== ENCOUNTER 2024-03-08 11:17 | Outpatient (AMB) | payer MEDICAID, SELFPAY ==
--- NOTE | 2024-03-08 11:24 | MHC.OFFVIS ---
Vital Signs 03/08/24 11:25 Height 5 ft 5 in Weight 306 lb BMI 50.9 BP 128/68 Blood Pressure Location Lt brachial Position Sitting Pulse 74 Pulse Source Pulse Oximeter Pulse Oximetry (%) 97 Oxygen Delivery Method Room Air Intake Visit Reasons: Obstructive sleep apnea Burial Vault Maker Required: No Allergies No Known Allergies [No Known Allergies*] Allergy (Verified 03/08/24 11:27) HPI Comments Details: The patient is a 48 year-old woman with a known history of asthma, HIV her antiretroviral therapy and obstructive sleep apnea. She has been describing worsening daytime drowsiness in the last several months. She states she was diagnosed with obstructive sleep apnea couple years ago and she has been on CPAP therapy ever since. However, she became sick requiring hospitalizations and other medical issues that kept her from using machine. Therefore the patient could not get supplies and therefore was not able to continue using the CPAP. She has been struggling to get back to using the PAP therapy since she was very helpful in beneficial for her. We did review her previous sleep study demonstrating moderate degree of sleep apnea with an AHI of 24 anything which worse during REM sleep. The patient responded well to CPAP therapy. In the meantime she is also describing increasing shortness of breath. She has had episodes of recurrent pneumonias. Currently she is immunocompetent as her HIV is being treated effectively. She did undergo a chest x-ray demonstrating increased haziness of the lungs suggesting some degree of pneumonitis. She does complain of shortness of breath in addition to some pleuritic discomfort of her chest area in primarily on the right side. She also complains of lower extremity edema swelling. 10/05/2022 the patient is here for pulmonary follow-up visit. The patient recently was sick with worsening respiratory symptoms prior a cough which is productive in nature. She called the office and the patient did received some antibiotics and prednisone. She does feel better at this time although she still not her baseline. We had done blood work as well demonstrating a normal D-dimer ruling out the possibility of thromboembolic disease. The patient also has been having difficulties with her sleep. She still having significant daytime drowsiness. Her Dobbins score is elevated 04/16. We had called the [employer] during the last visit because she had not received her CPAP machine. Apparently the patient had a CPAP before and was not given instructions on how to effectively use it so therefore that she could not tolerated. When she did follow-up with us we did adjust the CPAP and she did a lot better she tolerated much better. But, at that point was too late the insurance company was no longer pain 4 in was taken away. Now the patient is usually waiting for it to start therapy. She had a repeat sleep study demonstrating the sleep apnea and I am hopeful that she can get started on CPAP therapy soon. The patient is currently working with the [employer], Rosalba. 02/08/2023 the patient is here for pulmonary follow visit. She continues to have difficulty with her sleep. She does have issues where she wakes up short of breath and disoriented. She is missing her CPAP. We did call the [employer] company again day will try to get her situated with CPAP this week or next. If she is not set up with CPAP she will call me and let me know so we can have an alternative plan. The patient though benefit from her CPAP therapy. The patient also has been responding well to the addition of the Spiriva. She has been using the inhalers with good effect. She still complaining of significant joint pains and musculoskeletal issues that keep her from exercising. She has a hard time going up and down the stairs. This limits her activity and she gets down about that overall. Hopefully I will answer we can get her on CPAP she starts feeling more energetic during the daytime. In addition to that she will try melatonin in conjunction with gabapentin to see if this helps her sleep better at nighttime. The patient is aware that when she gets the machine she needs to use it every night for 4 hours at least. Otherwise the machine will be taken away. 11/16/2023 the patient is here for a pulmonary follow-up visit. The patient is still struggling with her CPAP. The patient initially has not difficulties getting his supplies from a DME. Finally she did get him and she states that the mask that she had was broken by her dog. Then for she was not able to use it. Her son did buy her a new mask but is a fullface mask she could not tolerate it. I did have a DreamWear nasal mask available that she is going to use and start using regularly 4 hours a day. She understands that she does not use his machine is going to be taken away. She would respiratory symptoms have been fairly stable on medications. She has been using her Spiriva the effective and the Symbicort she has been using it as needed. Explained her the Symbicort she should at least use it daily especially since she is having increasing respiratory symptoms. She understands that Symbicort she can use up to twice a day. 03/08/2024 the patient is here for a pulmonary follow-up visit. Overall the patient has been doing okay. She is dealing with significant amount of stress in her home specially taking care of her special needs son and also recently her sister moved in with her who is super obese weighing about 500 lb and needs help with all her activities of daily living. This is cause added stress also financially constraint. The patient has been using the CPAP. Although sometimes she falls asleep without it because she does have some issues with insomnia. I will go ahead and prescribe her a small dose of Ambien that she can use as needed for those episodes of difficulty sleeping. Otherwise she does have other medications that she takes to help her. The patient finds his CPAP helpful beneficial. She does try to use it more than 4 hours a night. I am hopeful that if we can get her with a better sleep-wake cycles she continues to use it with good adherence. From a respiratory status the patient is doing well. She does have a rescue inhaler available and she also has Symbicort that she uses as needed. The patient has not had any recent flare-ups. [facility] Medical History (Updated 03/08/24 @ 12:10 by Andrez Hennessy MD) Murmur Elevated LFTs Asthma Constipation Chest pain Family history of colon cancer Hemorrhoids Dyspnea Abnormal chest x-ray At high risk for breast cancer Chest pain Rectal bleeding Hemorrhoids Nausea Abdominal cramping Abdominal bloating Chest pain Nausea and vomiting Abdominal pain Shortness of breath Internal hemorrhoids with complication External hemorrhoids with complication Morbid obesity Colon cancer screening MARLON (obstructive sleep apnea) Asthma Irritable bowel syndrome with both constipation and diarrhea GERD (gastroesophageal reflux disease) Surgical History (Updated 02/29/24 @ 08:38 by Carloz Lujan MD) History of cardiac cath History of esophagogastroduodenoscopy (EGD) H/O colonoscopy History of cholecystectomy Family History Mother Heart attack Pacemaker Other Asthma History of cancer of uterus History of liver cancer History of ovarian cancer History of pancreatic cancer Social History Alcohol intake: never Patient Tobacco Use Status: Former Tobacco user Years Smoked: 10 +/- Review of Systems Const Reports daytime sleepiness, Reports difficulty sleeping, Reports fatigue, Denies night sweats and Reports stops breathing during sleep ENT Denies change in voice, Denies lip swelling, Denies mouth pain, Reports nasal congestion, Reports nasal discharge and Denies tongue swelling Card Denies chest pain, Reports leg edema and Reports dyspnea on exertion Resp Denies cough and Reports dyspnea on exertion GI Denies abdominal pain Musc Denies no additional complaints Neuro Denies Neuro-related abnormal movements Psych Denies no additional complaints Endo Reports fatigue Christofer/Lymph Denies easy bleeding and Denies lymphadenopathy Aller/Immun Denies lip swelling and Denies tongue swelling Physical Exam Vital Signs: Last Vital Signs Pulse 74 03/08/24 11:25 BP 128/68 03/08/24 11:25 Pulse Ox 97 03/08/24 11:25 Oxygen Delivery Method Room Air 03/08/24 11:25 BMI result Body Mass Index 50.9 Const General: alert HEENT General nose exam: Abnormal external nose present and Nasal discharge present Neck Neck: Yes normal visual inspection, Yes full ROM and Yes no lymphadenopathy Chest Chest palpation & inspection: normal inspection of the chest Resp Effort & Inspection: normal respiratory effort Auscultation: diminished lung sounds Cardio Rate: regular rate Rhythm: regular rhythm Heart sounds: S1 normal heart sound present, S2 normal heart sound present and Murmur heart sound present GI Palpation (GI): Soft to palpation and nontender Auscultation: normal bowel sounds Skin General skin exam: no rashes or lesions noted Extrem General: Yes no clubbing, cyanosis or edema Assessment & Plan Assessment & Plan (1) MARLON (obstructive sleep apnea): Code(s): G47.33 - Obstructive sleep apnea (adult) (pediatric) Category: Medical (2) Dyspnea: Comment: Likely multifactorial. Code(s): R06.00 - Dyspnea, unspecified Category: Medical Qualifiers: Dyspnea type: dyspnea on exertion Qualified Code(s): R06.00 - Dyspnea, unspecified (3) Asthma: Code(s): J45.909 - Unspecified asthma, uncomplicated Category: Medical Qualifiers: Asthma complication type: uncomplicated Asthma persistence: persistent Asthma severity: moderate Qualified Code(s): J45.40 - Moderate persistent asthma, uncomplicated (4) GERD (gastroesophageal reflux disease): Code(s): K21.9 - Gastro-esophageal reflux disease without esophagitis Category: Medical Qualifiers: Esophagitis presence: without esophagitis Qualified Code(s): K21.9 - Gastro-esophageal reflux disease without esophagitis Plan APAP, (provided dreamwear nasal mask) start Ambien echo continue Spiriva continue Symbicort MINESH as needed F/U 4-6 months Orders: Orders CA echo transthoracic complete Today I27.20 - Pulmonary hypertension, unspecified, R01.1 - Cardiac murmur, unspecified Coding Level of Care Code Tele Est Pt Level 4 (77178) Diagnoses MARLON (obstructive sleep apnea) G47.33 Dyspnea on exertion R06.00 Dyspnea type: dyspnea on exertion Moderate persistent asthma without complication J45.40 Asthma complication type: uncomplicated Asthma persistence: persistent Asthma severity: moderate Gastroesophageal reflux disease without esophagitis K21.9 Esophagitis presence: without esophagitis Time Spent (min) 16
[2024-03-08 11:25] VITALS: BP 128/68; PULSE 74; O2SAT 97; BMI 50.9
== END 2024-03-08 11:47 | disposition home or self-care (01) ==
PROVIDERS: PCP General Practice; Visit Provider Hospitalist
DX: G47.33 Obstructive sleep apnea (adult) (pediatric) (principal); J45.40 Moderate persistent asthma, uncomplicated; K21.9 Gastro-esophageal reflux disease without esophagitis
CPT/HCPCS: 99214

== ENCOUNTER → 2024-03-08 11:17 | Outpatient (BNVA) | payer MEDICAID, SELFPAY | PROVIDERS: PCP General Practice; Visit Provider Hospitalist | DX: G47.33 Obstructive sleep apnea (adult) (pediatric) (principal); J45.40 Moderate persistent asthma, uncomplicated; R06.00 Dyspnea, unspecified; K21.9 Gastro-esophageal reflux disease without esophagitis | CPT/HCPCS: 99212 ==

== ENCOUNTER 2024-03-14 09:54 | Outpatient (AMB) | payer MEDICAID, SELFPAY ==
[2024-03-14 10:19] VITALS: BP 105/58; PULSE 59; BMI 51.1
--- NOTE | 2024-03-14 10:19 | MHC.OFFVIS ---
Vital Signs 03/14/24 10:19 Height 5 ft 5 in Weight 307 lb 5.19 oz BMI 51.1 BP 105/58 L Blood Pressure Location Rt brachial Position Sitting Pulse 59 Intake Visit Reasons: 4 week follow up Intake Note: Renetta presents to in office follow up of abdominal pain and GERD. CC: Patient reports that she continues having colon pain and occasional rectal bleeding but the last week it has been better. Public Information Director Required: Yes Accompanied by: Self / Same As Patient Allergies No Known Allergies [No Known Allergies*] Allergy (Verified 03/14/24 10:31) HPI HPI 4 week follow up: Details: Assessment & Plan (1) Irritable bowel syndrome with both constipation and diarrhea: Code(s): K58.2 - Mixed irritable bowel syndrome Category: Medical (2) Erosive esophagitis: Comment: 2018 EGD with esophageal ulcer Code(s): K22.10 - Ulcer of esophagus without bleeding Category: Medical (3) GERD (gastroesophageal reflux disease): Code(s): K21.9 - Gastro-esophageal reflux disease without esophagitis Category: Medical Qualifiers: Esophagitis presence: without esophagitis Qualified Code(s): K21.9 - Gastro-esophageal reflux disease without esophagitis (4) LLQ abdominal pain: Comment: Moderate diverticulosis could be the source Code(s): R10.32 - Left lower quadrant pain Category: Medical Plan Romans[place] #Judie and Champ (new) LInzess at 72mcg and add Bentyl for the pain. However, the Linzess should also affect her pain in a positive direction. She also continues on her omeprazole, famotidine, and simethicone. She says that at first the LInzess worked, but then the cramping returned and it is severe. She never received the bentyl. I have my staff calling to see why. This will be important. In the meantime, she is having now fecal and urinary incontinence so we will change the LInzess 72mcg to prn. Her lower abd pain continues as a cramping/twisting pain. She continues to have numbness in her hands and feet and she is concerned that my primary has not referred me to a neurologist. It seems she is being treated for diabetic neuropathy with lyle, and I'm uncertain if neurology would have anything to contribute. It turns out that she is supposed to have her medications delivered and the pharmacy says she is not picking up her medications, we have several on hold. We call the pharmacy to see if we can resolve this. she has difficulty getting out and walking. SHe also does not drive. I suggest that if this does not get resolved she may want to try [facility] pharmacy. She has external roids but she has difficulty using the roid cream and they are painful, we discuss using ice packs as well. Discussed surgical referral since this is the most sustained period of time she has had the hemorrhoidal pain w/o success with creams and bowel control. She wants a referral. ROV 4 weeks. Orders: Referrals General Surgery Referral K64.9 - Unspecified hemorrhoids Medications: Refilled omeprazole 40 mg PO DAILY 30 caps 6RF dicyclomine 20 mg PO QID 120 tabs 6RF 30 days K58.2 - Mixed irritable bowel syndrome CORRESPONDENCE On 02/28/24 @ 08:46 Harsha Devine Wrote To Alyssa Hurtado Noted, I can check with her and let her know. On 02/25/24 @ 13:25 Alyssa Hurtado Wrote To Harsha Devine The ketorolac in the tamsulosin or a 1 time prescription when she had an acute kidney stone. If she needs these refilled on ongoing basis she would need to see her primary care provider. On 02/25/24 @ 11:43 Harsha Devine Wrote To Alyssa Hurtado Pt called [facility] to request refills of her medications. Pt states that she has been having difficulties with her previous pharmacy in [facility]. She has not been able to get all of her meds for a period of time. Pt has since switched to [facility] in [place] on [address]. TODAY'S VISIT Romans[place] #Shonna Live She has had significant relief with the bentyl in her LLQ pain, but she still has some breakthrough...so we will have her take an extra pill to mediate the pain. She is agreeable to this. She also has pain in the skin around the anal area, and I suggest and apply Calmosepting cream - which she says gives her significant relief. She is seeing Gen surgery for a rectal fissure and they are suggesting a full sphincterotomy. Apparently they are awaiting cardiac clearance 1st. We discuss a dosing schedule for LInzess, ie.e may 3 times a week as she is having intermittent watery stools with fecal urgency. She brings me a home made pen and earrings!! ROV 6 weeks to eval increase of bentyl if not effective could consider imipramine. [facility] Medical History Nephrolithiasis External hemorrhoids with complication Internal hemorrhoids with complication Murmur Elevated LFTs Asthma Constipation Chest pain Family history of colon cancer Hemorrhoids Dyspnea Abnormal chest x-ray At high risk for breast cancer Chest pain Rectal bleeding Hemorrhoids Nausea Abdominal cramping Abdominal bloating Chest pain Nausea and vomiting Abdominal pain Shortness of breath Morbid obesity Colon cancer screening MARLON (obstructive sleep apnea) Asthma Irritable bowel syndrome with both constipation and diarrhea GERD (gastroesophageal reflux disease) Surgical History History of cardiac cath History of esophagogastroduodenoscopy (EGD) H/O colonoscopy History of cholecystectomy Family History Mother Heart attack Pacemaker Other Asthma History of cancer of uterus History of liver cancer History of ovarian cancer History of pancreatic cancer Social History Alcohol intake: never Patient Tobacco Use Status: Former Tobacco user Years Smoked: 10 +/- Review of Systems Const Denies fatigue, Denies fever(s), Denies night sweats, Denies poor appetite and Denies weight loss Eyes Details: glasses Reports requires corrective lenses ENT Reports Normal hearing present, Denies dental pain, Denies dysphagia, Denies hearing loss, Denies mouth pain, Denies odynophagia, Denies throat swelling, Denies tongue swelling and Reports other (Dentition adequate) Card Reports no additional complaints Resp Reports no additional complaints GI Details: Rectal pain Reports abdominal pain, Denies melena, Denies bloating, Denies hematochezia, Denies constipation, Denies GI cramping, Denies dysphagia, Denies excessive flatus, Denies early satiety, Reports heartburn, Denies diarrhea, Denies nausea, Denies odynophagia, Denies vomiting and Denies hematemesis Skin/Breast Denies pruritus, Denies lesions, Reports rash (Reddening around the skin of the rectum) and Denies jaundice Neuro Reports Normal hearing present and Denies Abnormal speech present Endo Denies fatigue Aller/Immun Denies throat swelling and Denies tongue swelling Physical Exam Vital Signs: Last Vital Signs Pulse 59 03/14/24 10:19 BP 105/58 L 03/14/24 10:19 BMI result Body Mass Index 51.1 Const General: cooperative, no acute distress, well developed and well groomed Nutritional Appearance: well nourished and obese morbidly obese Orientation/consciousness: oriented to person, oriented to place and oriented to time Limitations: language barrier HEENT Head: Yes normocephalic and Yes atraumatic Eyes General: appearance normal, both eyes and all related structures Pupils: Equal, round and reactive pupils present Neck Neck: Yes normal visual inspection and Yes no lymphadenopathy Thyroid: Thyroid normal Resp Effort & Inspection: normal respiratory effort and able to speak in complete sentences Auscultation: clear to auscultation bilaterally Cardio Rate: regular rate Rhythm: regular rhythm Heart sounds: Normal, physiologic split S2 sound present Peripheral pulses: radial pulses present and posterior tibial pulses present GI Inspection: No distended, Yes Abdominal panniculus present and Yes obesity Palpation (GI): Soft to palpation, nontender, no guarding, not rigid and No hepatosplenomegaly present Percussion: Yes normal to percussion Auscultation: normal bowel sounds Rectal Exam - Female: deferred Skin General skin exam: no rashes or lesions noted, turgor normal, skin not dry, no jaundice, No spider nevi and no striae Rashes: no rashes Nails: normal Neuro General: oriented to person, oriented to place and oriented to time Cranial nerves: Yes Equal, round and reactive pupils present and Yes Normal hearing present Speech: No Abnormal speech present Extrem General: Yes normal to inspection, No clubbing, No cyanosis and No edema Psych Appearance: grossly normal and well kempt Mental Status: mental status grossly normal Speech and movement: Normal speech and movement present Affect: normal affect Attitude: cooperative Thought process: Normal thought process present and not confabulating Thought content: Normal thought content present Insight: Limited insight present (Psych) Judgement: Limited judgement present (Psych) Assessment & Plan Assessment & Plan (1) Erosive esophagitis: Comment: 2018 EGD with esophageal ulcer Code(s): K22.10 - Ulcer of esophagus without bleeding Category: Medical (2) Irritable bowel syndrome with both constipation and diarrhea: Code(s): K58.2 - Mixed irritable bowel syndrome Category: Medical (3) GERD (gastroesophageal reflux disease): Code(s): K21.9 - Gastro-esophageal reflux disease without esophagitis Category: Medical Qualifiers: Esophagitis presence: without esophagitis Qualified Code(s): K21.9 - Gastro-esophageal reflux disease without esophagitis (4) LLQ abdominal pain: Comment: Moderate diverticulosis could be the source Code(s): R10.32 - Left lower quadrant pain Category: Medical Plan [place] #Shonna Live She has had significant relief with the bentyl in her LLQ pain, but she still has some breakthrough...so we will have her take an extra pill to mediate the pain. She is agreeable to this. She also has pain in the skin around the anal area, and I suggest and apply Calmosepting cream - which she says gives her significant relief. She is seeing Gen surgery for a rectal fissure and they are suggesting a full sphincterotomy. Apparently they are awaiting cardiac clearance 1st. We discuss a dosing schedule for LInzess, ie.e september 3 times a week as she is having intermittent watery stools with fecal urgency. She brings me a home made pen and earrings!! ROV 6 weeks to eval increase of bentyl if not effective could consider imipramine. Medications: Changed From dicyclomine 20 mg PO QID 30 days 120 tabs 6RF K58.2 - Mixed irritable bowel syndrome To dicyclomine 40 mg (2 x 20 mg) PO QID 30 days 240 tabs 6RF K58.2 - Mixed irritable bowel syndrome Refilled dicyclomine 40 mg (2 x 20 mg) PO QID 240 tabs 6RF 30 days K58.2 - Mixed irritable bowel syndrome omeprazole 40 mg PO DAILY 30 caps 6RF linaclotide (Linzess) 72 mcg PO QAM 30 caps 6RF K58.2 - Mixed irritable bowel syndrome simethicone 180 mg PO TID 90 caps 6RF R14.0 - Abdominal distension (gaseous) psyllium husk 0.4 grams PO BEDTIME 30 caps 6RF Coding Level of Care Code Est Pt Level 4 (12699) Diagnoses Erosive esophagitis K22.10 Irritable bowel syndrome with both constipation and diarrhea K58.2 Gastroesophageal reflux disease without esophagitis K21.9 Esophagitis presence: without esophagitis LLQ abdominal pain R10.32
== END 2024-03-14 11:34 | disposition home or self-care (01) ==
PROVIDERS: PCP General Practice; Visit Provider Nurse Practitioner
DX: K22.10 Ulcer of esophagus without bleeding (principal); K58.2 Mixed irritable bowel syndrome; K21.9 Gastro-esophageal reflux disease without esophagitis; R10.32 Left lower quadrant pain
CPT/HCPCS: 99214

== ENCOUNTER → 2024-03-14 09:54 | Outpatient (BNVA) | payer MEDICAID, SELFPAY | PROVIDERS: PCP General Practice; Visit Provider Nurse Practitioner | DX: R10.12 Left upper quadrant pain (principal); K21.9 Gastro-esophageal reflux disease without esophagitis; K22.10 Ulcer of esophagus without bleeding; K58.2 Mixed irritable bowel syndrome | CPT/HCPCS: 99212 ==

== ENCOUNTER 2024-03-29 09:47 | Outpatient (AMB) | payer MEDICAID, SELFPAY ==
[2024-03-29 10:08] VITALS: BP 120/62; PULSE 62; BMI 51.0
--- NOTE | 2024-03-29 10:08 | MHC.OFFVIS ---
Vital Signs 03/29/24 10:08 Height 5 ft 5 in Weight 306 lb 7.08 oz BMI 51.0 BP 120/62 Blood Pressure Location Lt brachial Position Sitting Pulse 62 Pulse Source Monitor Intake Visit Reasons: pcp referral KM pt dx: chest pain Unemployment Insurance Director Required: Yes Unemployment Insurance Director Name: [id number] Allergies No Known Allergies [No Known Allergies*] Allergy (Verified 03/14/24 10:31) Medication List - Last Reconciled 03/29/24 by Jona Valdovinos MD [id number] 600-50-300 mg (Triumeq) 1 tab PO DAILY albuterol sulfate 90 mcg/actuation (Ventolin HFA) 2 puffs PO QID PRN albuterol sulfate 90 mcg/actuation 2 inhalations inhalation Q6H PRN 30 days budesonide-formoterol 160-4.5 mcg/actuation (Symbicort) 2 puffs PO BID CPAP (CPAP Machine/Device) As directed cyclobenzaprine 5 mg PO Q8H PRN 5 days empagliflozin-metformin 5-1,000 mg (Synjardy) 2 tabs PO QAM famotidine 40 mg PO BEDTIME fluticasone propionate 50 mcg/actuation 1 spray intranasal DAILY gabapentin 300 mg PO TID glipizide ER 10 mg PO QAM lancets (Sure Comfort Lancets) As directed linaclotide (Linzess) 72 mcg PO QAM losartan 25 mg PO DAILY omeprazole 40 mg PO DAILY tiotropium bromide 2.5 mcg/actuation (Spiriva Respimat) 2 puffs inhalation DAILY 30 days HPI Comments Details: Pleasant 49-year-old female who has background history of asthma, HIV, obstructive sleep apnea and diabetes. She was previously seen for chest discomfort ongoing for few weeks. She had anterior T-wave inversions. After discussion she was taken for diagnostic angiography which showed normal coronary arteries and she had no coronary disease. Given T-wave inversions she also had a D-dimer done which was negative. She has background of acid reflux as well as asthma. She has been following with Gastroenterology and pulmonology. She continues to get chest discomfort which is a pressure-like feeling when she is lying down or when she bends forward then stands up. 03/29/2024: He is here for follow-up. She had pulmonology follow-up and has been diagnosed with asthma. She also had esophagitis and has been following with GI. She is complaining of sharp chest pains with coughing at nighttime. She is also getting pressure-like feeling in her chest. She is saying she continues to have significant GI issues and does not eat much. No exertional issues. She does have some nighttime palpitations to. She has been following with gastroenterology and pulmonology. [facility] Medical History (Updated 03/29/24 @ 11:35 by Jona Valdovinos MD) Chest pain Nephrolithiasis External hemorrhoids with complication Internal hemorrhoids with complication Murmur Elevated LFTs Asthma Constipation Family history of colon cancer Hemorrhoids Dyspnea Abnormal chest x-ray At high risk for breast cancer Chest pain Rectal bleeding Hemorrhoids Nausea Abdominal cramping Abdominal bloating Chest pain Nausea and vomiting Abdominal pain Shortness of breath Morbid obesity Colon cancer screening MARLON (obstructive sleep apnea) Asthma Irritable bowel syndrome with both constipation and diarrhea GERD (gastroesophageal reflux disease) Surgical History History of cardiac cath History of esophagogastroduodenoscopy (EGD) H/O colonoscopy History of cholecystectomy Family History Mother Heart attack Pacemaker Other Asthma History of cancer of uterus History of liver cancer History of ovarian cancer History of pancreatic cancer Social History Alcohol intake: never Patient Tobacco Use Status: Former Tobacco user Years Smoked: 10 +/- Review of Systems Const Denies weakness ENT Denies dizziness Card Reports chest pain, Reports chest pain with activity, Denies syncope, Denies rapid heart rate, Denies pedal edema, Denies edema, Denies leg edema, Denies lightheadedness, Reports palpitations, Reports dyspnea, Denies dyspnea on exertion and Denies orthopnea Resp Denies cough, Reports dyspnea and Denies dyspnea on exertion GI Denies hematochezia and Denies change in stool character Musc Denies abnormal gait, Denies muscle cramps, Denies muscle weakness, Denies numbness, Denies radiating pain into limb and Denies tingling Neuro Denies abnormal gait, Denies dizziness, Denies syncope, Denies numbness, Denies tingling and Denies weakness Endo Reports palpitations Physical Exam Vital Signs: Last Vital Signs Pulse 62 03/29/24 10:08 BP 120/62 03/29/24 10:08 BMI result Body Mass Index 51.0 GENERAL APPEARANCE: in no acute distress, morbidly obese. NECK: no carotid bruit, no jugular venous distention. SKIN: no suspicious lesions, warm and dry. HEART: no murmurs, regular rate and rhythm. LUNGS: clear to auscultation bilaterally. ABDOMEN: soft, nontender. EXTREMITIES: no edema. PERIPHERAL PULSES: equal. NEUROLOGIC: No gross deficits, AAO X 3 Office Procedures EKG Details: Sinus rhythm 62 beats per minute, normal axis, nonspecific T-wave changes, QTC 444 milliseconds. [id number], Complete Assessment & Plan Assessment & Plan (1) Palpitations: Code(s): R00.2 - Palpitations Category: Medical (2) Chest pain: Code(s): R07.9 - Chest pain, unspecified Category: Medical Plan Pleasant 49 year female who is here for follow-up. She has known history of chest pains and previously had cardiac catheterization done which showed normal coronary arteries. She was referred to pulmonology and was diagnosed with asthma and was also seen by Gastroenterology and was diagnosed with esophagitis. She has significant symptoms at this point. She is complaining of palpitations which are happening at nighttime. We will arrange a 5 day Holter monitor to rule out any arrhythmia. She has musculoskeletal pain on the left side of the chest which is clearly reproducible but she also gets some pressure-like feeling when she is laying down. She also has been coughing at nighttime. These symptoms can be due to asthma in combination with reflux. Clearly these symptoms are non cardiac in origin. I have reassured her and she will follow-up with GI and pulmonology as before to discuss these symptoms. She will see us back in few months. We will get the Holter monitor as mentioned to rule out any arrhythmia. Thank you for allowing me to participate in the care of your patient. Please feel free to contact me if you have any questions. Orders: Orders ECG 5 day holter monitor Today R00.2 - Palpitations Coding Level of Care Code Est Pt Level 4 (04856) Diagnoses Palpitations R00.2 Chest pain R07.9 CPT Codes EKG - CPT: 34870-[id number], Complete ([id number])
== END 2024-03-29 10:58 | disposition home or self-care (01) ==
LOC: HO.HCS 09:48
PROVIDERS: PCP General Practice; Visit Provider Internal Medicine Cardiovascular Disease
DX: R00.2 Palpitations (principal); R07.9 Chest pain, unspecified
CPT/HCPCS: 93010; 99214

== ENCOUNTER → 2024-03-29 09:47 | Outpatient (BNVA) | payer MEDICAID, SELFPAY | PROVIDERS: PCP General Practice; Visit Provider Internal Medicine Cardiovascular Disease | DX: R07.9 Chest pain, unspecified (principal); R00.2 Palpitations; R05.9 Cough, unspecified | CPT/HCPCS: 93005; 99212 ==

== ENCOUNTER 2024-05-13 03:53 | Emergency (ER) | payer MEDICAID, SELFPAY ==
--- NOTE | 2024-05-13 | ECG_ITS ---
Test Reason : CHEST PAIN Blood Pressure : / mmHG Vent. Rate : 065 BPM Atrial Rate : 065 BPM P-R Int : 182 ms QRS Dur : 086 ms QT Int : 418 ms P-R-T Axes : 055 006 009 degrees QTc Int : 434 ms Normal sinus rhythm Cannot rule out Anterior infarct (cited on or before 20-NOV-2019) Abnormal ECG When compared with ECG of 11-NOV-2021 19:06, No significant change was found Referred By: Generic ED Physician Electronically Signed By:ISAÍAS MCKEON
--- NOTE | ~2024-05-13 | CT_ITS ---
EXAMINATION: CT CERVICAL SPINE WITHOUT CONTRAST CLINICAL INFORMATION: Fall, left-sided neck pain COMPARISON: None available. TECHNIQUE: 3 mm thin axial and reformatted 2 mm thin sagittal and coronal images of cervical spine were obtained without contrast. This CT examination was performed using dose optimization techniques as appropriate, variously including the following: *Automated exposure control *Adjustment of mA and/or kV according to patient size (this includes techniques or standardized protocols for targeted exams where dose is matched to indication/reason for exam; i.e. extremities or head) *Use of iterative reconstruction technique DLP: 675 mGy-cm FINDINGS: There is maintained cervical lordosis. The vertebral heights, alignment and disc heights are normal. The craniovertebral junction and the C1-C2 alignment is normal. There is no visible acute fracture, dislocation or subluxation seen. The prevertebral and paravertebral soft tissues are normal. The thyroid lobes are symmetrical and normal. The airway is widely patent. CT/CT cervical spine wo IV con IMPRESSION: Unremarkable cervical spine CT. Fleischner guidelines were followed. Electronically signed by: Raymundo Corona MD 05/13/2024 08:04 AM [facility]
--- NOTE | ~2024-05-13 | XR_ITS ---
EXAMINATION: XR CHEST CLINICAL INFORMATION: chest pain COMPARISON: September 15, 2022 TECHNIQUE: Frontal view of the chest was obtained. FINDINGS: The cardiomediastinal silhouette is stable. There is no focal lung consolidation or pleural effusions. The bony structures and the soft tissues are unremarkable. XR/XR chest 1V IMPRESSION: No acute cardiopulmonary process. Electronically signed by: Jon Avila MD 05/13/2024 05:54 AM [facility]
[2024-05-13 04:00] VITALS: BP 116/77; BP 137/77; PULSE 59; PULSE 62; RESP 18; TEMP 36.8; O2SAT 100; O2SAT 98; BMI 53.7
[2024-05-13 04:14] LABS: MANUAL DIFF FLAG NO
[2024-05-13 04:17] LABS: Basophils Absolute Auto 0.1 X10*3/uL (0.0-0.2); Basophils Percent Auto 0.8 % (0-2); Eosinophils Absolute Auto 0.3 X10*3/uL (0.0-0.4); Eosinophils Percent Auto 3.6 % (0-4); Hematocrit 39.9 % (37.0-47.0); Hemoglobin 13.1 g/dl (12.0-16.0); Imm Gran Abs Auto 0.02 X10*3/uL (0.00-0.03); Imm Gran Pct Auto 0.2 % (0.0-0.4); Lymphocytes Absolute Auto 3.3 X10*3/uL (1.2-4.9); Lymphocytes Percent Auto 36.3 % (20-40); Mean Corpuscular HGB Conc 32.8 g/dl (31.0-35.0); Mean Corpuscular Hemoglobin 27.6 pg (27.0-33.0); Mean Corpuscular Volume 84.2 fL (80.0-98.0); Monocytes Absolute Auto 0.5 X10*3/uL (0.1-1.2); Neutrophils Percent Auto 54.1 % (45-73); Platelet Count 279 X10*3/uL (160-400); Red Blood Count 4.74 X10*6/uL (4.20-5.50); Red Cell Distribution Width 13.1 % (11.0-16.0); White Blood Count 9.2 X10*3/uL (4.8-10.8)
[2024-05-13 04:32] LABS: Alanine Aminotransferase 25 U/L (0-31); Albumin Level 3.9 g/dL (3.5-5.0); Alkaline Phosphatase 78 U/L (39-117); Anion Gap 15 (12-20); Aspartate Amino Transferase 39 U/L (5-31); Bilirubin Total 0.3 mg/dL (0.0-1.0); Blood Urea Nitrogen 12 mg/dL (9-16); Carbon Dioxide 21 mmol/L (22-29); Chloride 106 mmol/L (96-108); Creatinine Clr Calc Pharmacy 139.6; Estimated Glomerular Filt Rate > 60; Glucose Random 175 mg/dL (60-115); Potassium 4.7 mmol/L (3.3-5.1); Sodium 137 mmol/L (135-145); Total Protein 9.1 g/dL (6.5-8.0)
[2024-05-13 04:37] LABS: Troponin-I High Sensitivity < 2.7 ng/L (<3.5-17.0)
[2024-05-13 05:20] LABS: Influenza A PCR NEGATIVE (Negative); Influenza B PCR NEGATIVE (Negative); Resp Syncy Virus RNA Qual PCR NEGATIVE (Negative); SARS COV2 PCR INHOUSE NEGATIVE (Negative)
[2024-05-13] MEDS: diazePAM 5 MG TABLET PO (05:26)
[2024-05-13 06:20] VITALS: BP 130/70; PULSE 74; RESP 17; TEMP 36.4; O2SAT 95
--- NOTE | 2024-05-13 06:34 | ED.CHESTPAIN ---
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 No new injuries. She has a dry cough and some dyspnea. She denies fevers, chills, n/v/d. She notes it hurts to raise her left arm and it shakes when she does. She notes her whole arm feels tingling in a stocking glove pattern. She denies any other symptoms. She state she is anxious and doesn't like to come to get testing done. MD complaint: chest pain (neck pain, arm tingling) Onset (ago): day(s) (3+) Timing of current episode: episodic Prior episodes: No Onset: during rest and during exertion Pain location: left chest and other (arm, neck) Pain radiation: left arm Severity: moderate Quality: aching and other (feels tingling) Relieving factors: rest Exacerbating factors: palpation and movement Context: trauma/injury Associated symptoms: dyspnea and cough Treatment prior to arrival: none Related Data Home Medications ?Medication ?Instructions ?Recorded ?Confirmed abacavir 600 mg-dolutegravir 50 1 tab PO DAILY 02/25/21 03/29/24 mg-lamivudine 300 mg tablet (Triumeq) glipizide 10 mg tablet, extended 10 mg PO QAM 08/14/21 03/29/24 release 24 hr lancets 28 gauge (Sure Comfort #100 ea 06/04/22 03/29/24 Lancets) CPAP (CPAP Machine/Device) 11/16/23 03/29/24 gabapentin 300 mg capsule 300 mg PO TID 02/15/24 03/29/24 empagliflozin 5 mg-metformin 1,000 2 tab PO QAM 03/14/24 03/29/24 mg tablet (Synjardy) losartan 25 mg tablet 25 mg PO DAILY 03/14/24 03/29/24 Previous Rx's ?Medication ?Instructions ?Recorded cyclobenzaprine 5 mg tablet 5 mg PO Q8H PRN pain (scale score 01/27/21 7-10) 5 days #14 tabs fluticasone propionate 50 1 spray intranasal DAILY #16 grams 08/30/22 mcg/actuation nasal spray,suspension albuterol sulfate 90 mcg/actuation 2 puff PO QID PRN for wheezing #18 04/26/23 aerosol inhaler (Ventolin HFA) grams famotidine 40 mg tablet 40 mg PO BEDTIME #30 tabs 11/09/23 albuterol sulfate 90 mcg/actuation 2 inh inhalation Q6H PRN shortness 11/16/23 aerosol inhaler of breath or wheezing 30 days #18 grams budesonide-formoterol HFA 160 2 puff PO BID #10.2 grams 11/16/23 mcg-4.5 mcg/actuation aerosol inhaler (Symbicort) tiotropium bromide 2.5 2 puff inhalation DAILY 30 days #1 11/16/23 mcg/actuation mist for inhalation ea (Spiriva Respimat) linaclotide 72 mcg capsule 72 mcg PO QAM #30 caps 03/14/24 (Linzess) omeprazole 40 mg capsule,delayed 40 mg PO DAILY #30 caps 03/14/24 release Allergies Allergy/AdvReac Type Severity Reaction Status Date / Time No Known Allergies Allergy Verified 05/13/24 04:02 [No Known Allergies*] Review of Systems Review of Systems: Constitutional : No Fever, No Chills ENT/Mouth : No sore throat, No Rhinorrhea Eyes: No Eye Pain, No Swelling Cardiovascular : pos Chest Pain, pos SOB, no Dyspnea on Exertion, No Orthopnea, No Edema, No Palpitations Respiratory : pos Cough, No Sputum Gastrointestinal : no Nausea, No Vomiting, No Diarrhea, No abdominal Pain, No Hematochezia, No Melena Genitourinary : No Dysuria, No Urinary Frequency Musculoskeletal : No joint pain, No Myalgias, No Joint Swelling, pos neck pain Skin : No Skin Lesions, No rash Neuro : No Weakness, pos Numbness, No Dizziness, No Headache Psych : pos Anxiety/Panic, No Depression All other systems reviewed and are negative PMFSH Past Medical History Attestation statement: The following information was validated with the patient. Source: old records reviewed Medical History Chest pain Nephrolithiasis External hemorrhoids with complication Internal hemorrhoids with complication Murmur Elevated LFTs Asthma Constipation Family history of colon cancer Hemorrhoids Dyspnea Abnormal chest x-ray At high risk for breast cancer Chest pain Rectal bleeding Hemorrhoids Nausea Abdominal cramping Abdominal bloating Chest pain Nausea and vomiting Abdominal pain Shortness of breath Morbid obesity Colon cancer screening MARLON (obstructive sleep apnea) Asthma Irritable bowel syndrome with both constipation and diarrhea GERD (gastroesophageal reflux disease) Surgical History History of cardiac cath History of esophagogastroduodenoscopy (EGD) H/O colonoscopy History of cholecystectomy Family History Family History Mother Heart attack Pacemaker Other Asthma History of cancer of uterus History of liver cancer History of ovarian cancer History of pancreatic cancer Social History Social History Alcohol intake: never Patient Tobacco Use Status: Former Tobacco user Years Smoked: 10 +/- Smoked in Last 30 Days: No Use of substances other than those prescribed or required for medical reasons: No Advance Directives: No Advance Directives Information Provided: Yes Do you have a plan to hurt others: No Plan Patient : No Physical Exam Vital Signs: Vital Signs: Last Vital Signs Temp 97.6 F 05/13/24 06:20 Pulse 74 05/13/24 06:20 Resp 17 05/13/24 06:20 BP 130/70 05/13/24 06:20 Pulse Ox 95 05/13/24 06:20 O2 Del Method Room Air 05/13/24 06:20 BMI result Body Mass Index 53.7 Appearance: Alert. Oriented X3. No acute distress. Eyes: Pupils equal, round and reactive to light. ENT: Pharynx normal. 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 Pulses normal. Respiratory: No respiratory distress. Breath sounds normal. Abdomen: Soft and nontender. Skin: Skin warm and dry. Normal skin color. Normal skin turgor. Extremities: No lower extremity edema. No calf ttp Neuro: Oriented X 3. No motor deficit. No sensory deficit. Course Course Course Narrative: signed out to Dr. Nuñez 7am pending CT scan read and patient is very sleepy post valium Medications Administered Discontinued Medications Generic Name Dose Route Start Last Admin Trade Name Samiq PRN Reason Stop Dose Admin Diazepam 5 mg 05/13/24 05:19 05/13/24 05:26 Diazepam 5 Mg Tablet PO 05/13/24 05:20 5 mg ONCE ONE Administration Medical Decision Making Medical Decision Making [facility] Narrative: 49 yo female with PMH of anxiety, IBS, obesity, GERD, MARLON, asthma who notes she fell 3 weeks ago and then now c/o chest pain on upper L side but it is more radiating from the L neck she then now reports tingling in the neck and feels pins and needles in the arm. She can feel me touching her and she has pulses intact. She has no rash. She could have spasm, lyte abnormality, or radicular symptoms down L arm but I do not suspect severe compression. She is anxious so I am going to obtain labs, CT scan and sign her out to oncoming provider to reassess. She was given valium and is sleepy and states she feels different after the medication her chest pain is very atypical will obtain EKG and trop x 1 she denies recent travel or procedures she has no hypoxia, tachycardia or signs of DVT doubt VTE Differential Diagnosis Differential Diagnoses: The differential diagnosis associated with the presentation includes chest wall pain, spasm, anxiety, viral syndrome, radicular symptoms Admission/Observation Consideration of admission/observation: Escalation of care including admission/observation considered Lab Data [facility] Lab Attestation statement: I reviewed the patient's lab results. 05/13/24 04:07 05/13/24 04:07 Labs: Lab Results 05/13/24 05/13/24 Range/Units 04:07 04:39 WBC 9.2 (4.8-10.8) X10*3/uL RBC 4.74 (4.20-5.50) X10*6/uL Hgb 13.1 (12.0-16.0) g/dl Hct 39.9 (37.0-47.0) % MCV 84.2 (80.0-98.0) fL MCH 27.6 (27.0-33.0) pg MCHC 32.8 (31.0-35.0) g/dl RDW 13.1 (11.0-16.0) % Plt Count 279 D (160-400) X10*3/uL MPV 10.0 (9.4-12.3) fL Immature Gran % (Auto) 0.2 (0.0-0.4) % Neut % (Auto) 54.1 (45-73) % Lymph % (Auto) 36.3 (20-40) % [place] % (Auto) 5.0 (2-11) % Eos % (Auto) 3.6 (0-4) % Baso % (Auto) 0.8 (0-2) % Lymph # (Auto) 3.3 (1.2-4.9) X10*3/uL [place] # (Auto) 0.5 (0.1-1.2) X10*3/uL Eos # (Auto) 0.3 (0.0-0.4) X10*3/uL Baso # (Auto) 0.1 (0.0-0.2) X10*3/uL Abs Immat Gran (auto) 0.02 (0.00-0.03) X10*3/uL Absolute Neuts (auto) 5.0 (2.0-8.3) x10*3/uL Absolute Nucleated RBC 0.000 (0.0-0.012) X10*3/uL Nucleated RBC % (auto) 0.0 (0.0-0.2) /100WBC Sodium 137 (135-145) mmol/L Potassium 4.7 (3.3-5.1) mmol/L Chloride 106 (96-108) mmol/L Carbon Dioxide 21 L (22-29) mmol/L Anion Gap 15 (12-20) BUN 12 (9-16) mg/dL Creatinine 0.73 (0.5-1.4) mg/dL Estim Creat Clear Calc 139.6 Estimated GFR > 60 Random Glucose 175 H (60-115) mg/dL Calcium 9.0 D (8.4-10.2) mg/dL Total Bilirubin 0.3 (0.0-1.0) mg/dL AST 39 H (5-31) U/L ALT 25 (0-31) U/L Alkaline Phosphatase 78 (39-117) U/L Troponin I High Sens < 2.7 (<3.5-17.0) ng/L Total Protein 9.1 H (6.5-8.0) g/dL Albumin 3.9 (3.5-5.0) g/dL Influenza Type A (PCR) NEGATIVE (Negative) Influenza Type B (PCR) NEGATIVE (Negative) RSV RNA Qual (PCR) NEGATIVE (Negative) SARS-CoV-2 RNA (RT-PCR) NEGATIVE (Negative) Independent Interpretation I performed an independent interpretation of an: EKG, Plain X-Ray (normal ) and CT Scan Interpretation: Rate: 65 Rhythm: NSR [place]:left Normal P waves. Normal VIVI. Normal QRS complex. ST T wave : normal no GUERO qTC:434 prior studies: no acute ischemia The study has been interpreted contemporaneously by me. . Radiology Impression Discussion of test interpretation with radiology: I have reviewed the radiologist's reading. Independent Historian Clinical information obtained from an independent historian. History obtained from or confirmed by: EMS External Record Review External record reviewed: Outpatient record Discharge Plan Discharge Clinical Impression: Atypical chest pain, Neck pain Instructions: Chest Pain (ED), Acute Neck Pain (ED) Additional Instructions: labs and chest xray normal EKG no acute changes Prescriptions: No Action albuterol sulfate [Ventolin HFA] 90 mcg/actuation HFA aerosol inhaler 2 puff PO QID PRN (Reason: for wheezing) Qty: 18 11RF cyclobenzaprine 5 mg tablet 5 mg PO Q8H PRN (Reason: pain (scale score 7-10)) 5 Days Qty: 14 0RF Triumeq 600-50-300 mg tablet 1 tab PO DAILY fluticasone propionate 50 mcg/actuation spray,suspension 1 spray intranasal DAILY Qty: 16 0RF Rx Instructions: administer into each nostril glipizide 10 mg tablet extended release 24hr 10 mg PO QAM (DME) lancets [Sure Comfort Lancets] 28 gauge misc See Rx Instructions .ROUTE BID Qty: 100 Rx Instructions: As directed famotidine 40 mg tablet 40 mg PO BEDTIME Qty: 30 6RF (DME) CPAP Machine/Device Device See Rx Instructions .Route Rx Instructions: As directed budesonide-formoterol [Symbicort] 160-4.5 mcg/actuation HFA aerosol inhaler 2 puff PO BID Qty: 10.2 11RF Spiriva Respimat 2.5 mcg/actuation mist 2 puff inhalation DAILY 30 Days Qty: 1 11RF albuterol sulfate 90 mcg/actuation HFA aerosol inhaler 2 inh inhalation Q6H PRN (Reason: shortness of breath or wheezing) 30 Days Qty: 18 12RF gabapentin 300 mg capsule 300 mg PO TID Synjardy 5-1,000 mg tablet 2 tab PO QAM losartan 25 mg tablet 25 mg PO DAILY Linzess 72 mcg capsule 72 mcg PO QAM Qty: 30 6RF omeprazole 40 mg capsule,delayed release(DR/EC) 40 mg PO DAILY Qty: 30 6RF Print Language: Azeri
[2024-05-13 08:24] VITALS: BP 111/69; PULSE 57; RESP 18; TEMP 36.7; O2SAT 100
[2024-05-13 10:02] VITALS: BP 104/52; PULSE 61; RESP 16; TEMP 36.8; O2SAT 100
[2024-05-13 10:17] VITALS: BP 104/52; PULSE 61; RESP 16; TEMP 36.8; O2SAT 100
== END 2024-05-13 10:17 | disposition home or self-care (01) ==
PROVIDERS: Emergency Medicine; Emergency Provider Emergency Medicine Emergency Medical Services; PCP General Practice
DX: R07.89 Other chest pain (principal); M54.2 Cervicalgia; F41.9 Anxiety disorder, unspecified; R05.9 Cough, unspecified; J45.909 Unspecified asthma, uncomplicated; R06.02 Shortness of breath; Z87.891 Personal history of nicotine dependence; Z03.818 Encounter for observation for suspected exposure to other biological agents ruled out; Z79.899 Other long term (current) drug therapy
CPT/HCPCS: 0241U; 36415; 71045; 72125; 80053; 84484; 85025; 93005; 99284; 99285

== ENCOUNTER → 2024-05-13 04:05 | Outpatient (BNV) | payer MEDICAID, SELFPAY | PROVIDERS: Emergency Provider Emergency Medicine Emergency Medical Services; PCP General Practice; Visit Provider Internal Medicine | DX: R94.31 Abnormal electrocardiogram [ECG] [EKG] (principal) | CPT/HCPCS: 93010 ==

== ENCOUNTER 2024-08-10 14:38 | Outpatient (REF) | payer MEDICAID, SELFPAY ==
[2024-08-10 16:40] LABS: Alanine Aminotransferase 27 U/L (0-31); Albumin Level 3.9 g/dL (3.5-5.0); Alkaline Phosphatase 89 U/L (39-117); Anion Gap 11 (12-20); Aspartate Amino Transferase 24 U/L (5-31); Bilirubin Total 0.3 mg/dL (0.0-1.0); Blood Urea Nitrogen 15 mg/dL (9-16); Calcium 9.6 mg/dL (8.4-10.2); Carbon Dioxide 26 mmol/L (22-29); Chloride 103 mmol/L (96-108); Estimated Glomerular Filt Rate > 60; Glucose Random 253 mg/dL (60-115); Potassium 4.1 mmol/L (3.3-5.1); Sodium 136 mmol/L (135-145); Total Protein 9.2 g/dL (6.5-8.0)
[2024-08-10 16:48] LABS: Lymphocytes Absolute Auto 3.2 X10*3/uL (1.2-4.9); PLT CLUMP 1; Red Cell Distribution Width 13.2 % (11.0-16.0); SCAN SMEAR FLAG 1
[2024-08-10 16:50] LABS: Basophils Absolute Auto 0.1 X10*3/uL (0.0-0.2); Basophils Percent Auto 0.9 % (0-2); Eosinophils Absolute Auto 0.6 X10*3/uL (0.0-0.4); Eosinophils Percent Auto 6.6 % (0-4); Hematocrit 37.3 % (37.0-47.0); Hemoglobin 12.4 g/dl (12.0-16.0); Imm Gran Abs Auto 0.02 X10*3/uL (0.00-0.03); Imm Gran Pct Auto 0.2 % (0.0-0.4); Lymphocytes Percent Auto 36.4 % (20-40); MANUAL DIFF FLAG SCAN; Mean Corpuscular HGB Conc 33.2 g/dl (31.0-35.0); Mean Corpuscular Hemoglobin 27.3 pg (27.0-33.0); Mean Platelet Volume 11.4 fL (9.4-12.3); Monocytes Absolute Auto 0.3 X10*3/uL (0.1-1.2); Monocytes Percent Auto 3.6 % (2-11); Neutrophils Absolute Auto 4.6 x10*3/uL (2.0-8.3); Neutrophils Percent Auto 52.3 % (45-73); Red Blood Count 4.55 X10*6/uL (4.20-5.50)
[2024-08-10 16:51] LABS: White Blood Count 8.8 X10*3/uL (4.8-10.8)
--- OUTSIDE RECORDS SUMMARY | 2024-08-10 17:16 | XMS_ITS | Clinical Summary ---
Author Organization 175 [facility] Address [address] [place] [address] Phone Care Team Providers Care Disposal Worker Name Role Phone Echo Rain MD Primary Care Provider [phone] Allergies No known active allergies Medications oxycodone HCl (OXYCONTIN ORAL) Take by mouth Active pantoprazole (PROTONIX) 20 mg EC tablet Take 1 tablet (20 mg total) by mouth 1 (one) time each day. Do not crush, chew, or split. Active Social History Tobacco Use Types Packs/Day Years Used Date Smoking Tobacco: Never Assessed Comments Unknown Sex and Gender Information Value Date Recorded Sex Assigned at Not on file Legal Sex Female 8:50 PM EST Gender Identity Not on file Sexual Orientation Not on file Plan of Treatment Upcoming Encounters Date Type Department Care Team ([facility] Contact Info) Description 09/05/2024 2:00 PM EDT Consult Orthopedic Surgery - [place] [id number] [phone] Sylvester Morales, CRISTIN [address] [phone] Health Maintenance Due Date Last Done Comments Breast Cancer Screening 1977 Diabetes: Annual GFR (Glomer ular Filtration Rate) 1977 Diabetes: Annual Foot Exam 1987 Diabetes: Annual Retina Eye Exam 1987 DTaP,Tdap,and Td Vaccines (1 - Tdap) 1996 Hepatitis B Vaccines (1 of 3 - 19+ 3-dose series) 1996 Pneumococcal Vaccine: Pediat rics (0 to 5 Years) and At-Risk Patients (6 to 64 Years) (1 of 2 - PCV) 1996 Cervical Cancer Screening: P ap Smear 1998 Cholesterol Screening (Lipid Panel) 06/18/2023 Colorectal Cancer Screening: Colonoscopy 06/18/2023 Depression Screening 06/18/2023 HIV Screening 06/18/2023 Hepatitis C Screening 06/18/2023 Social Influencers of Health Screening 06/18/2023 COVID-19 Vaccine ( - 2023-2 5 season) 2024 Influenza Vaccine (#1) 2024 Diabetes: Annual Urine Albumin-Creatinine Ratio (uACR) 06/29/2024 Diabetes: Blood Sugar Contro l Test (HGBA1C) 06/29/2024 HIB Vaccines Aged Out No longer eligi ble based on patient's age to complete this topic HPV Vaccines Aged Out No longer eligi ble based on patient's age to complete this topic Hepatitis A Vaccines Aged Out No long er eligible based on patient's age to complete this topic IPV Vaccines Aged Out No longer eligi ble based on patient's age to complete this topic MMR Vaccines Aged Out No longer eligi ble based on patient's age to complete this topic Meningococcal ACWY Vaccine Aged Out N o longer eligible based on patient's age to complete this topic Meningococcal B Vacine Aged Out No lo nger eligible based on patient's age to complete this topic RSV Immunization Patients Un joyce 20 months Aged Out No longer eligible b ased on patient's age to complete this topic Varicella Vaccines Aged Out No longer eligible based on patient's age to complete this topic Insurance MEDICAID - [place] Care Teams Disposal Worker Relationship Specialty Start Date End Date Echo Rain MD [address] [place] [address] PCP - General Livestock Trucker 06/29/24
[2024-08-10 17:40] LABS: Platelet Count 194 X10*3/uL (160-400)
[2024-08-10 17:41] LABS: SLIDE REVIEW VERIFIED
[2024-08-12 17:03] LABS: HIV RNA PCR Qn Copies 35 copies/mL (NOT DETECTED); HIV RNA PCR Qn Log Copies 1.54 (NOT DETECTED)
== END 2024-08-10 14:39 | disposition home or self-care (01) ==
LOC: HO.HHCL 14:38
PROVIDERS: General Practice; Visit Provider Internal Medicine
DX: Z21 Asymptomatic human immunodeficiency virus [HIV] infection status (principal)
CPT/HCPCS: 36415; 80053; 85025; 86359; 86360; 87536

== ENCOUNTER → 2024-08-30 09:59 | Outpatient (REF) | payer MEDICAID, SELFPAY ==
--- NOTE | 2024-08-30 10:03 | CA_ITS ---
Transthoracic Echocardiogram Patient (Last, First, Middle): Renetta Johnson R Gender: Female Date of : 1975 Age: 49 Procedure Date: 08/30/2024 Procedure Type: Transthoracic Echocardiogram Location: OP Height: 165.1 cm Weight: 138.8 kg BSA: 2.37 m2 Heart Rate: bpm BP: 120 / 75 mmHg Wine Steward: MIGNON Referring MD: Andrez Hennessy MD Contact Acid Plant Operator Helper: Gt Butler MD Symptoms: I27.20 - Pulmonary hypertension, unspecified Study Quality: Technically Difficult, contrast ECG Rhythm: Sinus Conclusions: - 1. Normal LV ejection fraction of 65-70% with normal filling pattern 2. Right-sided chambers are not well visualized 3. Limited visualization of cardiac valves with normal cardiac valvular Dopplers 4. Normal calculated RV systolic pressure with suggestive of mildly elevated right atrial pressures Findings Procedure Information Contrast agent, definity, is being given per protocol without apparent complications. Left Ventricle Normal left ventricular size, thickness, and systolic function. The visually estimated ejection fraction is between 65-70%. Spectral Doppler is indicative of a normal filling pattern. Right Ventricle The right ventricle was not well visualized. Atria The left atrium is normal in size. Interatrial shunt cannot be excluded. The right atrium was not well visualized. Aortic Valve The aortic valve was not well visualized. There is no aortic valve stenosis. There is no aortic valve regurgitation. Mitral Valve The mitral valve was not well visualized. There is no mitral valve regurgitation. There is no mitral valve stenosis. Pulmonic Valve The pulmonic valve was not well visualized. Tricuspid Valve The tricuspid valve was not well visualized. There is mild tricuspid valve regurgitation. Mildly elevated right atrial pressure. There is no evidence of pulmonary hypertension. Great Vessels The aorta was not well visualized. The pulmonary artery was not well visualized. Venous The inferior vena cava is normal in size and collapses less than 50% with inspiration. Pericardium/Pleural The pericardium was not well visualized. Prior Study Comparison No significant change compared to prior study dated: 07/15/2022. Measurements 2D Linear Measurements IVSd: 1.12 0.6-0.9/0.6-1.0 cm LVIDd: 4.84 3.9-5.3/4.2-5.9 cm LVIDd Index: 2.04 2.4-3.2/2.2-3.1 cm/m2 LVIDs: 3.18 2.0-3.6 cm LVPWd: 1.07 0.7-1.1 cm LA Diam: 3.50 2.7-3.8/3.0-4.0 cm LAIDs Index: 1.48 1.5-2.3 cm/m2 LV Mass: 243.41 67-162/88-224 g LV Mass Index: 102.71 43-95/49-115 g/m2 LVOT Diam: 2.10 3.0+(-)1.3 cm 2D Systolic Function EF 4C: 63.50 >55% EF 2C: 71.20 >55% EF BiP: 67.30 >55% Mitral Valve MV Pk E: 0.64 MV PK A: 0.52 MV Decel Time: 186.00 E/A: 1.20 E'Lateral: 11.60 E'Medial: 10.10 E/E' Med: 6.40 E/E' Lat: 5.50 PHT: 54.00 MVA PHT: 4.07 Decel Foard: 3.46 Aortic Valve AoV Pk Josef: 1.50 AoV Mn Josef: 0.99 AoV VTI: 0.35 AoV Pk Grad: 9.00 Aov Mn Grad: 5.00 JOEL Cont.VTI: 3.28 LVOT LVOT Pk Josef: 1.37 LVOT Mn Josef: 1.00 LVOT VTI: 0.33 LVOT Pk Grad: 8.00 LVOT Mn Grad: 5.00 LVOT Diam: 2.10 LVOT Area: 3.46 Diastolic Function MV Pk E: 0.64 MV Pk A: 0.52 E/A: 1.20 E'Medial: 10.10 E/E' Med: 6.40 E' Laterial: 11.60 E/E' Lat: 5.50 Right Ventricle TAPSE (mm): 28.70 TVS' Josef: 15.10 Tricuspid Valve TR Pk Josef: 2.17 TR Pk Grad: 19.00 RA Press: 8.00 RVSP: 27.00 Great Vessels Aorta Sinus of Valsalva: 3.90 2.0-3.[address] [place]: 3.00 1.7-3.4 cm Ao Asc: 3.40 2.1-3.4 cm Updated in Other Vendor System with Status of Final Gt Butler MD electronically signed on 08/31/2024 3:48:04 PM with status of Final
--- OUTSIDE RECORDS SUMMARY | 2024-08-30 11:08 | XMS_ITS | Clinical Summary ---
Author Organization 175 [facility] Address [address] [place] [address] Phone Care Team Providers Care Sales Administration Manager Name Role Phone Echo Rain MD Primary Care Provider [phone] Allergies No known active allergies Medications oxycodone [...] Upcoming Encounters Date Type Department Care Team ([facility] Contact Info) Description 09/05/2024 2:00 PM EDT Consult Orthopedic Surgery - [place] [id number] [phone] Sylvester Morales, CRISTIN [address] [phone] Health Maintenance Due Date Last Done Comments [...] age to complete this topic Meningococcal B Vaccine Aged Out No l onger eligible based on patient's age to complete this topic RSV Immunization Patients Un joyce 20 months Aged Out No longer eligible b ased on patient's age to complete this topic Varicella Vaccines Aged Out No longer eligible based on patient's age to complete this topic Insurance MEDICAID - [place] Care Teams Sales Administration Manager Relationship Specialty Start Date End Date Echo Rain MD [address] [place] [address] PCP - General Leasing Associate 06/29/24
== END ==
LOC: HO.CARD 09:59
PROVIDERS: PCP General Practice; Visit Provider Hospitalist
DX: R00.2 Palpitations (principal)
CPT/HCPCS: 93242; 93306; Q9957

== ENCOUNTER → 2024-08-30 10:03 | Outpatient (BNV) | payer MEDICAID, SELFPAY | PROVIDERS: PCP General Practice; Visit Provider Internal Medicine Cardiovascular Disease | DX: I36.1 Nonrheumatic tricuspid (valve) insufficiency (principal) | CPT/HCPCS: 93306 ==

== ENCOUNTER 2024-12-29 16:56 | Outpatient (REF) | payer MEDICAID, SELFPAY ==
[2024-12-29 17:13] LABS: Appearance Urine Clear; Glucose Urine UA >=1000 mg/dL (Negative); PH 5.5 (5.0-9.0); Specific Gravity - Urine >= 1.030 (1.005-1.025); UMIC TRIGGER UACC YES
[2024-12-29 17:32] LABS: UACC Culture Trigger YES
[2024-12-30 02:16] LABS: Bacterial Vaginosis PCR NEGATIVE (Negative); Candida Group PCR NOT DETECTED (Not Detect); Candida glab krusei PCR DETECTED (Not Detect); Trichomonas vaginalis PCR NOT DETECTED (Not Detect)
== END 2024-12-29 16:57 | disposition home or self-care (01) ==
LOC: HO.HHCLNP 16:56
PROVIDERS: Visit Provider Nurse Practitioner
DX: N89.8 Other specified noninflammatory disorders of vagina (principal); R30.0 Dysuria
CPT/HCPCS: 81001; 81515; 87086; 87088; 87186

== ENCOUNTER 2025-03-20 12:45 | Outpatient (AMB) | payer MEDICAID, SELFPAY ==
--- NOTE | 2025-03-20 12:44 | MHC.OFFVIS ---
Intake Visit Reasons: Urinary incontinence Intake Note: patient presents today for: new pt urinary incontinence urology medications: none blood thinners: none smoker: today's PVR: 60mls Park Activities Coordinator Required: Yes Park Activities Coordinator Name: Chiquita [id number] Accompanied by: Self / Same As Patient Allergies No Known Allergies (No Known Allergies*) Allergy (Verified 03/20/25 13:43) Medication List - Last Reconciled 03/20/25 by HALI DavisP- [id number] 600-50-300 mg (Triumeq) 1 tab PO DAILY acetaminophen (Tylenol Extra Strength) 1,000 mg (2 x 500 mg) PO Q6H PRN albuterol sulfate 90 mcg/actuation (Ventolin HFA) 2 puffs PO QID PRN albuterol sulfate 90 mcg/actuation 2 inhalations inhalation Q6H PRN 30 days budesonide-formoterol 160-4.5 mcg/actuation (Symbicort) 2 puffs PO BID CPAP (CPAP Machine/Device) As directed cyclobenzaprine 5 mg PO Q8H PRN 5 days cyclobenzaprine 10 mg PO TID PRN empagliflozin-metformin 5-1,000 mg (Synjardy) 2 tabs PO QAM famotidine 40 mg PO BEDTIME fluticasone propionate 50 mcg/actuation 1 spray intranasal DAILY gabapentin 300 mg PO TID glipizide ER 10 mg PO QAM ibuprofen 400 mg PO TID PRN lancets (Sure Comfort Lancets) As directed linaclotide (Linzess) 72 mcg PO QAM losartan 25 mg PO DAILY omeprazole 40 mg PO DAILY tiotropium bromide 2.5 mcg/actuation (Spiriva Respimat) 2 puffs inhalation DAILY 30 days HPI Comments Details: Renetta is a 50-year-old [place]ambican-speaking female patient of Dr. Rain. She has a past medical history of nephrolithiasis, internal and external hemorrhoids, murmur, elevated LFTs, asthma, constipation, obesity, obstructive sleep apnea, asthma, irritable bowel syndrome with both constipation and diarrhea, and GERD. She presents to the office today as a new patient for mixed urinary incontinence. In discussion with the patient today she reports for many years she has been having issues with mixed urinary incontinence and followed up with Dr. Thomas here at [facility] many years ago as well as [facility] urogynecology. She reports previously having had a bladder lift many years ago. She also reports previous therapies for her urinary incontinence to include pelvic floor therapy and multiple trials of oral medications that she does not recall the names of. She reports she also experience an episode of urinary retention status post her hysterectomy. She discusses at length her frustration regarding her multiple medical issues. She reports having recently followed up with her PCP in discussing her mixed urinary incontinence at which time referral was made to Urology for further assessment evaluation. I did discuss potential causes of mixed urinary incontinence as well as further treatment options and risks and benefits of these treatment options. She denies hematuria, dysuria, foul smelling urine, changes to urinary stream, flank pain, fever, and or chills. She does also report noting fecal incontinence at times however feels urinary incontinence is more frequent and bothersome. She does report a previous history of nephrolithiasis in the past. She reports being told by previous urogynecological provider she should undergo weight loss to assist with mixed urinary incontinence. I did discussed with the patient the importance of weight loss in relation to lower urinary tract symptoms as well as overall health and well-being. In office urinalysis results reviewed with the patient today. PVR 60 mL. All questions were answered. She otherwise offers no other issues or concerns at this time. [facility] Medical History (Updated 03/20/25 @ 20:23 by Nessa Mock [facility]) Nephrolithiasis Chest pain External hemorrhoids with complication Internal hemorrhoids with complication Murmur Elevated LFTs Asthma Constipation Family history of colon cancer Hemorrhoids Dyspnea Abnormal chest x-ray At high risk for breast cancer Chest pain Rectal bleeding Hemorrhoids Nausea Abdominal cramping Abdominal bloating Chest pain Nausea and vomiting Abdominal pain Shortness of breath Morbid obesity Colon cancer screening MARLON (obstructive sleep apnea) Asthma Irritable bowel syndrome with both constipation and diarrhea GERD (gastroesophageal reflux disease) Surgical History History of cardiac cath History of esophagogastroduodenoscopy (EGD) H/O colonoscopy History of cholecystectomy Family History Mother Heart attack Pacemaker Other Asthma History of cancer of uterus History of liver cancer History of ovarian cancer History of pancreatic cancer Social History Alcohol intake: never Patient Tobacco Use Status: Former Tobacco user Years Smoked: 10 +/- Review of Systems Const All systems reviewed & are unremarkable except as noted in HPI and below Physical Exam Const General: cooperative, comfortable, no acute distress, well developed, alert and awake Nutritional Appearance: obese Orientation/consciousness: patient oriented x3 Limitations: language barrier HEENT Head: Yes normal to inspection, Yes normocephalic and Yes atraumatic Ears: hearing grossly normal bilaterally Eyes General: appearance normal, both eyes and all related structures Neck Neck: Yes normal visual inspection and Yes trachea midline Chest Chest palpation & inspection: normal inspection of the chest Resp Effort & Inspection: normal respiratory effort and able to speak in complete sentences Cardio Rate: regular rate GI Inspection: Yes normal to inspection General: Yes no CVA tenderness Back/Spine/Pelvis Back: no CVA tenderness Skin General skin exam: no rashes or lesions noted Neuro General: patient oriented x3 Extrem General: Yes normal to inspection Psych Appearance: grossly normal and well kempt Mental Status: mental status grossly normal Speech and movement: Normal speech and movement present and Clear speech present Affect: normal affect Attitude: cooperative Thought process: Normal thought process present Thought content: Normal thought content present Assessment & Plan Assessment & Plan (1) Incontinence: Code(s): R32 - Unspecified urinary incontinence Category: Medical (2) Urinary incontinence, mixed: Code(s): N39.46 - Mixed incontinence Category: Medical (3) Fecal incontinence: Code(s): R15.9 - Full incontinence of feces Category: Medical (4) Nephrolithiasis: Code(s): N20.0 - Calculus of kidney Category: Medical Plan In office urinalysis results reviewed with the patient today; as noted above will send for urine cytology. PVR 60 mL Will obtain retroperitoneal ultrasound for further assessment evaluation. We did discussed potential causes of mixed urinary incontinence as well as further treatment options and risks and benefits of these treatment options. All questions were answered. We did discuss importance of weight loss and management and diabetes for improvement in urological health as well as overall health and well-being. We discussed signing medical release form to obtain previous urological records for continuity of care. Follow-up next available in office urodynamics with imaging to be completed prior; or sooner with any issues, concerns, and or questions. Orders: Orders AMB Post Void Residual by ultrasound Today R32 - Unspecified urinary incontinence US retroperitoneal comp Today R32 - Unspecified urinary incontinence Urine Cytology Today N39.0 - Urinary tract infection, site not specified Patient Instructions: The patient had an opportunity to ask questions regarding the treatment plan. All questions were answered. Physical exam, labs, and imaging were discussed and reviewed in detail. As well as risks, benefits, and discussion of treatment choices. No major barriers to understanding were identified. The patient expressed understanding and agreement with the above treatment plan. The patient was made aware they should contact our office by phone for worsening of their current condition, the appearance of new symptoms, or with any questions or concerns. Compliance is encouraged with any medications and follow up testing that is ordered. It is a privilege to be allowed the opportunity to participate in? your urological care.? Again, if you have any questions or concerns If you have any questions or concerns please do not hesitate to contact me. The office is [phone]. This note is constructed using voice recognition software. While every effort has been made to ensure accuracy rock picker errors may have been included. Yours sincerely, PATRICK Davis Coding Level of Care Code New Pt Level 4 (79704) Diagnoses Incontinence R32 Urinary incontinence, mixed N39.46 Fecal incontinence R15.9 Nephrolithiasis N20.0 Time Spent (min) 45
== END 2025-03-20 13:53 | disposition home or self-care (01) ==
LOC: HO.HUSH 12:47
PROVIDERS: PCP General Practice; Visit Provider Nurse Practitioner Family
DX: R32 Unspecified urinary incontinence (principal); N39.46 Mixed incontinence; R15.9 Full incontinence of feces; N20.0 Calculus of kidney
CPT/HCPCS: 99204

== ENCOUNTER 2025-03-20 12:45 | Outpatient (REF) | payer MEDICAID, SELFPAY ==
--- OUTSIDE RECORDS SUMMARY | 2025-03-20 20:18 | XMS_ITS | Clinical Summary ---
Author Organization [address] [facility] Address [address] [place] [address] Phone Care Team Providers Care Stogy Maker Name Role Phone Echo Rain MD Primary Care Provider [phone] Allergies No known active allergies Medications oxycodone HCl (OXYCONTIN ORAL) Take by mouth Active pantoprazole (PROTONIX) 20 mg EC tablet Take 1 tablet (20 mg total) by mouth 1 (one) time each day. Do not crush, chew, or split. Active ammonium lactate (AmLactin) 12 % lotion Apply topically if needed for dry skin. 400 g 2 5 09/15/19 Active ammonium lactate (AmLactin) 12 % lotion Apply topically if needed for dry skin. 400 g 2 5 11/21/19 Active Encounters Date Type Department Care Team Description 02/08/[address] [facility] [address] [id number] Sylvester Morales DPM from Last 3 Months Social History Tobacco Use Types Packs/Day Years Used Date Smoking Tobacco: Never Assessed Comments Unknown Sex and Gender Information Value Date Recorded Sex Assigned at Not on file Legal Sex Female 8:50 PM EST Gender Identity Not on file Sexual Orientation Not on file Plan of Treatment Health Maintenance Due Date Last Done Comments Breast Cancer Screening 1977 Colorectal Cancer Screening: Colonoscopy 1977 Diabetes: Annual GFR (Glomerular Filtration Rate) 1977 Diabetes: Annual Foot Exam 1987 Diabetes: Annual Retina Eye Exam 1987 Cervical Cancer Screening: Pap Smear 1998 Cholesterol Screening (Lipid Panel) 06/18/2023 HIV Screening 06/18/2023 Hepatitis C Screening 06/18/2023 Social Influencers of Health Screening 06/18/2023 Depression Screening 05/24/2024 Diabetes: Annual Urine Albumin-Creatinine Ratio (uACR) 06/29/2024 Diabetes: Blood Sugar Control Test (HGBA1C) 06/29/2024 COVID-19 Vaccine (2 - season) 2025 09/02/2021 Influenza Vaccine (#1) 2025 , 06/16/2019, 02/05/2015, Additional history exists Pneumococcal Vaccine: Pediatrics (0 to 5 Years) and At-Risk Patients (6 to 49 Years) (3 of 3 - PCV20 or PCV21) 2027 04/16/2014, 02/16/2012 DTaP,Tdap,and Td Vaccines (4 - Td or Tdap) 04/03/2032 04/03/2022, 02/16/2012, 08/31/2008 RSV Immunization Adult Patients (1 - 1-dose 75+ series) 2052 MMR Vaccines Completed 03/24/1993, 08/05/1979 Hepatitis B Vaccines Completed 10/17/2009, 03/27/2009, 02/08/2009, Additional history exists Hepatitis A Vaccines Aged Out 03/06/2013, 07/28/19 06 No longer eligible based on patient's age to complete this topic HIB Vaccines Aged Out No longer eligi [...] to complete this topic RSV Immunization Patients Under 20 months Aged Out No longer eligible based on patient's age to complete this topic Varicella Vaccines Aged Out No longer eligible based on patient's age to complete this topic Insurance MEDICAID - [place] Care Teams Stogy Maker Relationship Specialty Start Date End Date Echo Rain MD [address] [place] [address] PCP - General Photography Colorist 06/29/24
== END 2025-03-20 12:46 | disposition home or self-care (01) ==
LOC: HO.LNP 12:45
PROVIDERS: PCP General Practice; Visit Provider Nurse Practitioner Family
DX: N39.46 Mixed incontinence (principal); N20.0 Calculus of kidney; R15.9 Full incontinence of feces
CPT/HCPCS: 88112; 99212

== ENCOUNTER 2025-03-23 14:41 | Outpatient (REF) | payer MEDICAID, SELFPAY ==
--- OUTSIDE RECORDS SUMMARY | 2025-03-23 15:10 | XMS_ITS | Clinical Summary ---
Author Organization 175 [facility] Address [address] [place] [address] Phone Care Team Providers Care Cassandra Consultant Name Role Phone Echo Rain MD Primary Care Provider [phone] Allergies No known active allergies Medications oxycodone [...] Care Team Description 02/08/2025 Telephone Orthopedic Surgery [facility] [address] [phone] Sylvester Morales DPM from Last [...] topic Insurance MEDICA[place] - [place] Care Teams Cassandra Consultant Relationship Specialty Start Date End Date Echo Rain MD [address] [place] [address] PCP - General Chemical Plant Operator Supervisor 06/29/24
[2025-03-23 16:28] LABS: Cholesterol 237 mg/dL (<200); HDL Cholesterol 47 mg/dL (>40); Triglycerides 194 mg/dL (<150)
[2025-03-23 16:39] LABS: Alanine Aminotransferase 27 U/L (0-31); Albumin Level 4.5 g/dL (3.5-5.0); Alkaline Phosphatase 72 U/L (39-117); Anion Gap 12 (12-20); Aspartate Amino Transferase 27 U/L (5-31); Blood Urea Nitrogen 13 mg/dL (9-16); Calcium 9.6 mg/dL (8.4-10.2); Carbon Dioxide 23 mmol/L (22-29); Chloride 107 mmol/L (96-108); Estimated Glomerular Filt Rate > 60; Potassium 3.9 mmol/L (3.3-5.1); Sodium 138 mmol/L (135-145); Total Protein 9.0 g/dL (6.5-8.0)
[2025-03-23 16:45] LABS: Microalbum/Creatinine Ratio Ur 35.3 ug/mg cr (<30)
[2025-03-23 16:58] LABS: Folate 12.5 ng/mL (> or = 4.0); Vitamin B12 633 pg/mL (200-900)
[2025-03-23 17:04] LABS: Reflex LDLD? No
[2025-03-24 07:54] LABS: HBS Num1 0.00 mIU/mL (0-7.99); HBsAGNum1 0.38 S/CO (0.00-0.99); Hepatitis B Surface Antigen Negative (Negative); ~HepC Num1 0.13 S/CO (0.00-0.79); ~Hepatitis B Surface Antibody NONREACTIVE (Nonreactive); ~Hepatitis C Antibody Nonreactive (Nonreactive)
[2025-03-24 08:24] LABS: MANUAL DIFF FLAG NO
[2025-03-24 08:37] LABS: Hematocrit 42.7 % (37.0-47.0); Hemoglobin 13.4 g/dl (12.0-16.0); Imm Gran Abs Auto 0.02 X10*3/uL (0.00-0.03); Imm Gran Pct Auto 0.2 % (0.0-0.4); Lymphocytes Absolute Auto 2.7 X10*3/uL (1.2-4.9); Mean Corpuscular HGB Conc 31.4 g/dl (31.0-35.0); Mean Corpuscular Hemoglobin 27.0 pg (27.0-33.0); Mean Corpuscular Volume 86.1 fL (80.0-98.0); NRBC Abs Auto 0.000 X10*3/uL (0.0-0.012); NRBC Pct Auto 0.0 /100WBC (0.0-0.2); Platelet Count 237 X10*3/uL (160-400); Red Blood Count 4.96 X10*6/uL (4.20-5.50); White Blood Count 8.6 X10*3/uL (4.8-10.8)
[2025-03-26 16:03] LABS: HIV RNA PCR Qn Copies <20 DETECTED copies/mL (NOT DETECTED); HIV RNA PCR Qn Log Copies <1.30 DETECTED (NOT DETECTED)
[2025-03-26 22:28] LABS: TS Negative Control Passed; TS Panel A 0; TS Panel B 0; TS Positive Control Passed; TSpotTB Negative (Negative)
[2025-03-28 22:58] LABS: Absolute CD3 Count 2044 cells/uL (840-3060); Absolute CD8 Count 1188 cells/uL (180-1170); Percent CD3 Cells 82 % (57-85); Percent CD8 Cells 47 % (12-42)
== END 2025-03-23 14:42 | disposition home or self-care (01) ==
LOC: HO.HHCL 14:41
PROVIDERS: Internal Medicine; PCP General Practice; Visit Provider General Practice
DX: E11.41 Type 2 diabetes mellitus with diabetic mononeuropathy (principal); E11.65 Type 2 diabetes mellitus with hyperglycemia; Z21 Asymptomatic human immunodeficiency virus [HIV] infection status; Z11.4 Encounter for screening for human immunodeficiency virus [HIV]; Z01.84 Encounter for antibody response examination; Z11.59 Encounter for screening for other viral diseases
CPT/HCPCS: 36415; 80053; 80061; 82043; 82306; 82570; 82607; 82746; 83036; 84443; 85025; 86359; 86360; 86481; 86592; 86706; 86803; 87340; 87536

== ENCOUNTER 2025-04-04 12:56 | Outpatient (AMB) | payer MEDICAID, SELFPAY ==
--- NOTE | 2025-04-04 13:05 | MHC.OFFVIS ---
Vital Signs 04/04/25 13:34 Height 5 ft 5 in Weight 306 lb BMI 50.9 BP 132/74 Blood Pressure Location Lt radial Position Sitting Pulse 68 Pulse Source Pulse Oximeter Pulse Oximetry (%) 98 Oxygen Delivery Method Room Air Intake Visit Reasons: Follow up GERD/medication Intake Note: Est pt for mgmt of GERD + CIC CC: C.O. rectal bleeding + rectal pain worsening over the last few weeks. Pt also reports having nausea and post prandial abd discomfort which seems idiopathic in nature. Pt denies any noticeable triggers at this time. She is unsure of which medications she is taking. Pharmacy will have to be called to obtain this information. Program Manager Required: Yes Program Manager Services: Program Manager Present Program Manager Name: Enoc [id number] Accompanied by: Self / Same As Patient Allergies No Known Allergies (No Known Allergies*) Allergy (Verified 03/20/25 13:43) HPI HPI Follow up GERD/medication: Details: Assessment & Plan (1) Erosive esophagitis: Comment: 2017 EGD with esophageal ulcer Code(s): K22.10 - Ulcer of esophagus without bleeding Category: Medical (2) Irritable bowel syndrome with both constipation and diarrhea: Code(s): K58.2 - Mixed irritable bowel syndrome Category: Medical (3) GERD (gastroesophageal reflux disease): Code(s): K21.9 - Gastro-esophageal reflux disease without esophagitis Category: Medical Qualifiers: Esophagitis presence: without esophagitis Qualified Code(s): K21.9 - Gastro-esophageal reflux disease without esophagitis (4) LLQ abdominal pain: Comment: Moderate diverticulosis could be the source Code(s): R10.32 - Left lower quadrant pain Category: Medical Plan [place]er #Shonna Live She has had significant relief with the bentyl in her LLQ pain, but she still has some breakthrough...so we will have her take an extra pill to mediate the pain. She is agreeable to this. She also has pain in the skin around the anal area, and I suggest and apply Calmoseptine cream - which she says gives her significant relief. She is seeing Gen surgery for a rectal fissure and they are suggesting a full sphincterotomy. Apparently they are awaiting cardiac clearance 1st. We discuss a dosing schedule for LInzess, ie.e may 3 times a week as she is having intermittent watery stools with fecal urgency. She brings me a home made pen and earrings!! ROV 6 weeks to eval increase of bentyl if not effective could consider imipramine. Medications: Changed From dicyclomine 20 mg PO QID 30 days 120 tabs 6RF K58.2 - Mixed irritable bowel syndrome To dicyclomine 40 mg (2 x 20 mg) PO QID 30 days 240 tabs 6RF K58.2 - Mixed irritable bowel syndrome Refilled dicyclomine 40 mg (2 x 20 mg) PO QID 240 tabs 6RF 30 days K58.2 - Mixed irritable bowel syndrome omeprazole 40 mg PO DAILY 30 caps 6RF linaclotide (Linzess) 72 mcg PO QAM 30 caps 6RF K58.2 - Mixed irritable bowel syndrome simethicone 180 mg PO TID 90 caps 6RF R14.0 - Abdominal distension (gaseous) psyllium husk 0.4 grams PO BEDTIME 30 caps 6RF TODAY'S VISIT [place] #Heydi [facility] Medical History (Updated 04/04/25 @ 14:13 by AMANDA Zelaya) Family history of colon cancer Nephrolithiasis Chest pain External hemorrhoids with complication Internal hemorrhoids with complication Murmur Elevated LFTs Asthma Constipation Hemorrhoids Dyspnea Abnormal chest x-ray At high risk for breast cancer Chest pain Rectal bleeding Hemorrhoids Nausea Abdominal cramping Abdominal bloating Chest pain Nausea and vomiting Abdominal pain Shortness of breath Morbid obesity Colon cancer screening MARLON (obstructive sleep apnea) Asthma Irritable bowel syndrome with both constipation and diarrhea GERD (gastroesophageal reflux disease) Surgical History History of cardiac cath History of esophagogastroduodenoscopy (EGD) H/O colonoscopy History of cholecystectomy Family History Mother Heart attack Pacemaker Other Asthma History of cancer of uterus History of liver cancer History of ovarian cancer History of pancreatic cancer Social History Alcohol intake: never Patient Tobacco Use Status: Former Tobacco user Years Smoked: 10 +/- Review of Systems Const Denies fatigue, Denies fever(s), Denies night sweats, Denies poor appetite and Denies weight loss Eyes Details: glasses Reports requires corrective lenses ENT Reports Normal hearing present, Denies dental pain, Denies dysphagia, Denies hearing loss, Denies mouth pain, Denies odynophagia, Denies throat swelling, Denies tongue swelling and Reports other (Dentition adequate) Card Reports no additional complaints Resp Reports no additional complaints GI Details: rectal pain Denies abdominal pain, Denies melena, Reports bloating, Reports hematochezia, Reports constipation, Denies GI cramping, Denies dysphagia, Denies excessive flatus, Denies early satiety, Reports heartburn, Denies diarrhea, Denies nausea, Denies odynophagia, Denies vomiting and Denies hematemesis Musc Details: coccyx pain Reports radiating pain into limb Skin/Breast Denies pruritus, Denies lesions, Denies rash and Denies jaundice Neuro Reports Normal hearing present and Denies Abnormal speech present Psych Reports panic attacks Endo Denies fatigue Aller/Immun Denies throat swelling and Denies tongue swelling Physical Exam Vital Signs: Last Vital Signs Pulse 68 04/04/25 13:34 BP 132/74 04/04/25 13:34 Pulse Ox 98 04/04/25 13:34 Oxygen Delivery Method Room Air 04/04/25 13:34 BMI result Body Mass Index 50.9 Const General: cooperative, no acute distress, well developed and well groomed Nutritional Appearance: well nourished and obese morbidly obese Orientation/consciousness: oriented to person, oriented to place and oriented to time Limitations: language barrier HEENT Head: Yes normocephalic and Yes atraumatic Eyes General: appearance normal, both eyes and all related structures Pupils: Equal, round and reactive pupils present Neck Neck: Yes normal visual inspection and Yes no lymphadenopathy Thyroid: Thyroid normal Resp Effort & Inspection: normal respiratory effort and able to speak in complete sentences Auscultation: clear to auscultation bilaterally Cardio Rate: regular rate Rhythm: regular rhythm Heart sounds: Normal, physiologic split S2 sound present Peripheral pulses: radial pulses present and posterior tibial pulses present GI Inspection: No distended, Yes Abdominal panniculus present and Yes obesity Palpation (GI): Soft to palpation, nontender, no guarding, not rigid and No hepatosplenomegaly present Percussion: Yes normal to percussion Auscultation: normal bowel sounds Rectal Exam - Female: normal sphincter tone, Internal hemorrhoid(s) present (swollen piles at 2 oclock), No Excoriation present (GI) and tenderness (godinez rectal including on tailbone and pelvic bone) Skin General skin exam: no rashes or lesions noted, turgor normal, skin not dry, no jaundice, No spider nevi and no striae Rashes: no rashes Nails: normal Neuro General: oriented to person, oriented to place and oriented to time Cranial nerves: Yes Equal, round and reactive pupils present and Yes Normal hearing present Speech: No Abnormal speech present Extrem General: Yes normal to inspection, No clubbing, No cyanosis and No edema Psych Appearance: grossly normal and well kempt Mental Status: mental status grossly normal Speech and movement: Normal speech and movement present Affect: normal affect Attitude: cooperative Thought process: Circumstantial thought process present and not confabulating Thought content: Normal thought content present Insight: Fair insight present (Psych) and Limited insight present (Psych) Judgement: Fair judgement present (Psych) and Limited judgement present (Psych) Assessment & Plan Assessment & Plan (1) GERD (gastroesophageal reflux disease): Code(s): K21.9 - Gastro-esophageal reflux disease without esophagitis Category: Medical Qualifiers: Esophagitis presence: without esophagitis Qualified Code(s): K21.9 - Gastro-esophageal reflux disease without esophagitis (2) Erosive esophagitis: Comment: 2017 EGD with esophageal ulcer Code(s): K22.10 - Ulcer of esophagus without bleeding Category: Medical (3) Irritable bowel syndrome with both constipation and diarrhea: Code(s): K58.2 - Mixed irritable bowel syndrome Category: Medical (4) Family history of colon cancer: Comment: brother, . last scope 2020 repeat 5 years Code(s): Z80.0 - Family history of malignant neoplasm of digestive organs Category: Medical (5) HIV (human immunodeficiency virus infection): Code(s): B20 - Human immunodeficiency virus [HIV] disease Category: Medical (6) Anal intraepithelial neoplasia II: Comment: [facility] 06/18/2017 Code(s): K62.82 - Dysplasia of anus Category: Medical (7) Acute anal fissure: Code(s): K60.0 - Acute anal fissure Category: Surgical Plan [place] #Heydi Her last known GI regimen consisted of omeprazole, Linzess, simethicone, dicyclomine, and famotidine. I have not seen Lyubov for about a year. Apparently, she has had multiple other health concerns including an episode of sustained rectal bleeding, a COVID infection, and multiple difficulties coordinating with General surgery with regards to her rectal pain or rectal fissure. It seems that the physician that she saw has left the practice. They were talking about a possible sphincterotomy but never called to get back to her to arrange this. She continues to have severe rectal pain which limits her sitting or even laying on her back. She says the Linzess has helped somewhat, while she was on it, but given the fact that she has not been back some of the medicines have fallen out of her routine. Because of the she is experiencing bloating and more severe pain. Apparently she has never had any help with either the Calmoseptine cream or hemorrhoid creams. She is due for another colonoscopy in 2025 all get this ordered and see if we can marked as urgent. I will also see if she can coordinate again with General surgery, but it sounds like we do not really have a good working diagnosis as to the exact cause of the rectal pain. She has a history of rectal fissures along with a history of rectal cancer, but it does not seem like they were able to define an area of treatment via proctoscope. This leaves me quite uncertain as to what I can do to help her at this time except to restart her GI regimen to treat the generalized symptoms. We are also somewhat hampered by the fact that she is not well acquainted with her medications and forgot to bring a list. Hopefully she will bring this to her next appointment so I can know exactly what she is taking and what might be a confounding factor. Rectal exam is fairly unimpressive except for some swollen columns of veins at about 02:00 and exquisite pain in all directions around the rectum when inserting the finger. I can not feel any masses lumps etc. and I do not see blood on the glove but normal colored brown stool. Return office visit in 5 weeks. Orders: Referrals GI Procedure Notification Z80.0 - Family history of malignant neoplasm of digestive organs General Surgery Referral K60.0 - Acute anal fissure, K62.89 - Other specified diseases of anus and rectum Medications: New bisacodyl (Dulcolax (bisacodyl)) 10 mg (2 x 5 mg) PO BEDTIME 4 tabs 0RF 2 days peg 3350-electrolytes 236-22.74-6.74 -5.86 gram (Golytely) until fecal effluent is clear; do not exceed a total volume of 2,000 mL 240 mL PO Q10M 4,000 mL 0RF 1 day Z12.11 - Encounter for screening for malignant neoplasm of colon Refilled omeprazole 40 mg PO DAILY 30 caps 6RF simethicone after meals 180 mg PO QID 120 caps 3RF 30 days famotidine 40 mg PO BEDTIME 30 tabs 6RF K22.10 - Ulcer of esophagus without bleeding linaclotide (Linzess) 72 mcg PO QAM 30 caps 6RF K58.2 - Mixed irritable bowel syndrome Coding Level of Care Code Est Pt Level 4 (97412) Diagnoses Gastroesophageal reflux disease without esophagitis K21.9 Esophagitis presence: without esophagitis Erosive esophagitis K22.10 Irritable bowel syndrome with both constipation and diarrhea K58.2 Family history of colon cancer Z80.0 HIV (human immunodeficiency virus infection) B20 Anal intraepithelial neoplasia II K62.82 Acute anal fissure K60.0 Time Spent (min) 38
[2025-04-04 13:34] VITALS: BP 132/74; PULSE 68; O2SAT 98; BMI 50.9
--- OUTSIDE RECORDS SUMMARY | 2025-04-04 15:30 | XMS_ITS | Clinical Summary ---
Author Organization 175 [facility] Address [address] [place] [address] Phone Care Team Providers Care Mail Processing Equipment Mechanic Name Role Phone Echo Rain MD Primary Care Provider [phone] Allergies No known active allergies Medications oxycodone [...] Care Team Description 02/08/2025 Telephone Orthopedic Surgery [facility] [address] [address] Sylvester Morales DPM from Last [...] topic Insurance MEDICAID - [place] Care Teams Mail Processing Equipment Mechanic Relationship Specialty Start Date End Date Echo Rain MD [address] [place] [address] PCP - General Cataract Lens Generator 06/29/24
== END 2025-04-04 14:44 | disposition home or self-care (01) ==
LOC: HO.HGI 12:57
PROVIDERS: Visit Provider Nurse Practitioner
DX: K21.9 Gastro-esophageal reflux disease without esophagitis (principal); K22.10 Ulcer of esophagus without bleeding; K58.2 Mixed irritable bowel syndrome; Z80.0 Family history of malignant neoplasm of digestive organs; B20 Human immunodeficiency virus [HIV] disease; K62.82 Dysplasia of anus; K60.0 Acute anal fissure
CPT/HCPCS: 99214

== ENCOUNTER → 2025-04-04 12:56 | Outpatient (BNVA) | payer MEDICAID, SELFPAY | PROVIDERS: Visit Provider Nurse Practitioner | DX: K21.9 Gastro-esophageal reflux disease without esophagitis (principal); K22.10 Ulcer of esophagus without bleeding; K58.2 Mixed irritable bowel syndrome; Z80.0 Family history of malignant neoplasm of digestive organs; B20 Human immunodeficiency virus [HIV] disease; K62.82 Dysplasia of anus; K60.0 Acute anal fissure | CPT/HCPCS: 99212 ==

== ENCOUNTER 2025-04-06 14:13 | Outpatient (REF) | payer MEDICAID, SELFPAY ==
[2025-04-06 16:10] LABS: MANUAL DIFF FLAG NO
[2025-04-06 16:23] LABS: Hematocrit 40.4 % (37.0-47.0); Hemoglobin 12.8 g/dl (12.0-16.0); Imm Gran Abs Auto 0.03 X10*3/uL (0.00-0.03); Imm Gran Pct Auto 0.3 % (0.0-0.4); Lymphocytes Absolute Auto 3.4 X10*3/uL (1.2-4.9); Mean Corpuscular HGB Conc 31.7 g/dl (31.0-35.0); Mean Corpuscular Hemoglobin 27.3 pg (27.0-33.0); Mean Corpuscular Volume 86.1 fL (80.0-98.0); NRBC Abs Auto 0.000 X10*3/uL (0.0-0.012); NRBC Pct Auto 0.0 /100WBC (0.0-0.2); Platelet Count 307 X10*3/uL (160-400); Red Blood Count 4.69 X10*6/uL (4.20-5.50); White Blood Count 9.5 X10*3/uL (4.8-10.8)
[2025-04-06 16:37] LABS: Alanine Aminotransferase 27 U/L (0-31); Albumin Level 4.5 g/dL (3.5-5.0); Alkaline Phosphatase 79 U/L (39-117); Anion Gap 11 (12-20); Aspartate Amino Transferase 27 U/L (5-31); Blood Urea Nitrogen 10 mg/dL (9-16); Calcium 9.8 mg/dL (8.4-10.2); Carbon Dioxide 26 mmol/L (22-29); Chloride 108 mmol/L (96-108); Estimated Glomerular Filt Rate > 60; Potassium 3.7 mmol/L (3.3-5.1); Sodium 141 mmol/L (135-145); Total Protein 8.9 g/dL (6.5-8.0)
--- OUTSIDE RECORDS SUMMARY | 2025-04-06 21:10 | XMS_ITS | Clinical Summary ---
Author Organization 175 [facility] Address [address] [place] [address] Phone Care Team Providers Care Screen Operator Name Role Phone Echo Rain MD Primary Care Provider [phone] Allergies No known active allergies Medications oxycodone [...] Care Team Description 02/08/2025 Telephone Orthopedic Surgery [facility] [address] [address] Sylvester Morales DPM from Last [...] topic Insurance [place] - [place] Care Teams Screen Operator Relationship Specialty Start Date End Date Echo Rain MD [address] [place] [address] PCP - General Thermite Welder 06/29/24
== END 2025-04-06 14:14 | disposition home or self-care (01) ==
LOC: HO.HHCL 14:13
PROVIDERS: PCP Nurse Practitioner Family; Visit Provider Nurse Practitioner Family
DX: R10.32 Left lower quadrant pain (principal)
CPT/HCPCS: 36415; 80053; 85025; 85652; 86140

== ENCOUNTER 2025-05-07 11:07 | Outpatient (AMB) | payer MEDICAID, SELFPAY ==
--- NOTE | 2025-05-07 11:18 | MHC.OFFVIS ---
Vital Signs 05/07/25 11:32 Height 5 ft 5 in Weight 314 lb 6 oz BMI 52.3 BP 124/61 Blood Pressure Location Rt brachial Position Sitting Pulse 62 Intake Visit Reasons: Acute anal fissure Intake Note: Patient presents for an assessment for acute anal fissure. Pt c/o; reports ? UTI, burning sensation when urinating, reports she has urinary incontinenece, reports constipation and this morning after her bowel movement she noticed some rectal bleeding. NATE:02/29/2024 Finger Buffs Assembler Required: Yes Finger Buffs Assembler Language: Records Management Manager Services: Finger Buffs Assembler Present Finger Buffs Assembler Name: Angela Information Interpreted: non-clinical & clinical Accompanied by: Self / Same As Patient Allergies No Known Allergies (No Known Allergies*) Allergy (Verified 05/07/25 11:35) Medication List - Last Reconciled 05/07/25 by Andrzej Aguilar MD [id number] 600-50-300 mg (Triumeq) 1 tab PO DAILY acetaminophen (Tylenol Extra Strength) 1,000 mg (2 x 500 mg) PO Q6H PRN albuterol sulfate 90 mcg/actuation (Ventolin HFA) 2 puffs PO QID PRN bisacodyl (Dulcolax (bisacodyl)) 10 mg (2 x 5 mg) PO BEDTIME 2 days budesonide-formoterol 160-4.5 mcg/actuation (Symbicort) 2 puffs PO BID CPAP (CPAP Machine/Device) As directed cyclobenzaprine 10 mg PO TID PRN dicyclomine 20 mg PO QID 30 days empagliflozin-metformin 5-1,000 mg ER (Synjardy XR) 2 tabs PO QAM famotidine 40 mg PO BEDTIME flash glucose sensor (FreeStyle Kriss 2 Sensor kit) As directed fluticasone propionate 50 mcg/actuation 1 spray intranasal DAILY gabapentin 300 mg PO TID glipizide ER 10 mg PO QAM ibuprofen 400 mg PO TID PRN lancets (Sure Comfort Lancets) As directed linaclotide (Linzess) 72 mcg PO QAM losartan 25 mg PO DAILY multivitamin with folic acid 400 mcg (Daily-María (with folic acid)) 1 tab PO DAILY omeprazole 40 mg PO DAILY peg 3350-electrolytes 236-22.74-6.74 -5.86 gram (Golytely) 240 mL PO Q10M 1 day simethicone 180 mg PO QID 30 days tiotropium bromide 2.5 mcg/actuation (Spiriva Respimat) 2 puffs inhalation DAILY 30 days tirzepatide (Mounjaro) mg subcut QWEEK topiramate 100 mg PO BEDTIME HPI HPI Acute anal fissure: Details: 50-year-old female here because of anal pain. She says that for about a year now, she has been having this pain in her anus. She actually says that this does not only happen with bowel movements but she feels that this can be constant. She is also says she would occasionally sees small amounts of blood on wiping . She also says that sometimes the pain can be so severe. She denies any constipation. She actually says that she often has loose stools She is morbidly obese. [facility] Medical History (Updated 05/07/25 @ 11:53 by Andrzej Aguilar MD) Anal fissure Family history of colon cancer Nephrolithiasis Chest pain External hemorrhoids with complication Internal hemorrhoids with complication Murmur Elevated LFTs Asthma Constipation Hemorrhoids Dyspnea Abnormal chest x-ray At high risk for breast cancer Chest pain Rectal bleeding Hemorrhoids Nausea Abdominal cramping Abdominal bloating Chest pain Nausea and vomiting Abdominal pain Shortness of breath Morbid obesity Colon cancer screening MARLON (obstructive sleep apnea) Asthma Irritable bowel syndrome with both constipation and diarrhea GERD (gastroesophageal reflux disease) Surgical History History of cardiac cath History of esophagogastroduodenoscopy (EGD) H/O colonoscopy History of cholecystectomy Family History Mother Heart attack Pacemaker Other Asthma History of cancer of uterus History of liver cancer History of ovarian cancer History of pancreatic cancer Social History Alcohol intake: never Patient Tobacco Use Status: Former Tobacco user Years Smoked: 10 +/- Review of Systems Const Denies chills and Denies fever(s) Card Denies chest pain, Denies dyspnea and Reports dyspnea on exertion Resp Denies cough, Denies dyspnea and Reports dyspnea on exertion GI Reports hematochezia and Denies change in bowel habits Denies hematuria Musc Denies back pain and Denies limited range of motion Neuro Denies focal weakness and Denies convulsions Psych Denies depression and Denies mood swings Physical Exam Vital Signs: Last Vital Signs Pulse 62 05/07/25 11:32 BP 124/61 05/07/25 11:32 BMI result Body Mass Index 52.3 Const Other: Morbidly obese General: comfortable and no acute distress Orientation/consciousness: patient oriented x3 Neck Neck: Yes no lymphadenopathy Resp Auscultation: clear to auscultation bilaterally Cardio Rhythm: regular rhythm GI Other: Rectal exam: Retraction of the buttocks show appears to be a posterior midline fissure, very tender to touch, with a sentinel pile Palpation (GI): Soft to palpation, nontender and no guarding Neuro General: patient oriented x3 Assessment & Plan Assessment & Plan (1) Anal fissure: Code(s): K60.2 - Anal fissure, unspecified Category: Medical Plan: She has anal pain and examination suggest an anal fissure with a sentinel pile I am going to write her a prescription for Rectiv to help relax her sphincters. I will see her again in the office in about 1 month. I did explain to her that if Rectiv does not help, she may benefit from surgical sphincterotomy to help with her anal pain She understands the plan and is comfortable with this. Anoscopy was not done because of her discomfort. Coding Level of Care Code New Pt Level 3 (38534) Diagnoses Anal fissure K60.2
[2025-05-07 11:32] VITALS: BP 124/61; PULSE 62; BMI 52.3
== END 2025-05-07 12:04 | disposition home or self-care (01) ==
LOC: HO.HGS 11:08
PROVIDERS: PCP General Practice; Visit Provider Surgery
DX: K60.2 Anal fissure, unspecified (principal)
CPT/HCPCS: 99203

== ENCOUNTER 2025-05-07 11:07 | Outpatient (REF) | payer MEDICAID, SELFPAY ==
--- OUTSIDE RECORDS SUMMARY | 2025-05-07 22:25 | XMS_ITS | Clinical Summary ---
Author Organization 175 [facility] Address [address] [place] [address] Phone Care Team Providers Care Strip Picker Name Role Phone Echo Rain MD Primary Care Provider [phone] Allergies No known active allergies Medications oxycodone [...] Care Team Description 02/08/2025 Telephone Orthopedic Surgery [facility] [address] [phone] Sylvester Morales DPM from Last [...] topic Insurance [place] - [place] Care Teams Strip Picker Relationship Specialty Start Date End Date Echo Rain MD [address] [place] [address] PCP - General Passenger Car Cleaning Supervisor 06/29/24
== END 2025-05-07 11:08 | disposition home or self-care (01) ==
LOC: HO.LNP 11:07
PROVIDERS: PCP General Practice; Visit Provider Surgery
DX: K60.2 Anal fissure, unspecified (principal); N30.90 Cystitis, unspecified without hematuria
CPT/HCPCS: 87086